=== PATIENT | female | born 1935 | race Caucasian/White ===

== ENCOUNTER 2020-03-18 16:10 | Inpatient (IN) | payer MEDICARE, SELFPAY ==
[2020-03-18] VITALS (13 sets, daily range): BP systolic 107–152; BP diastolic 46–84; PULSE 50–88; RESP 16–19; TEMP 36.6–37.2; O2SAT 96–99; BMI 29.8; BMI 24.6; BMI 23.5
--- NOTE | 2020-03-18 16:14 | EKG12_ITS ---
Test Reason : STROKE Blood Pressure : / mmHG Vent. Rate : 098 BPM Atrial Rate : 102 BPM P-R Int : 000 ms QRS Dur : 080 ms QT Int : 356 ms P-R-T Axes : 000 -03 143 degrees QTc Int : 454 ms Accelerated Junctional rhythm Left ventricular hypertrophy with repolarization abnormality Abnormal ECG Confirmed by LEEROY PAPPAS, KENYATTA ([id number]), story editor JOSE M RUTH ([id number]) on 03/21/2020 11:32:59 AM Referred By: ALDEN Confirmed By:KENYATTA UMAÑA MD
--- NOTE | 2020-03-18 16:14 | RAD_ITS ---
STUDY: X-RAY CHEST REASON FOR EXAM: Female, 84 years old. Stroke. TECHNIQUE: Single AP portable view of the chest. COMPARISON: None. FINDINGS: Telemetry wires overlie the chest. The lungs are clear and expanded. There is no demonstrated pleural abnormality. The heart appears enlarged. Normal mediastinum and cassy. Normal visualized pulmonary arteries. Atherosclerotic tortuosity of the thoracic aorta. Question uncoiling of the thoracic aorta. There is a double density in the left heart margin. Question prominent left ventricle versus retrocardiac hiatal hernia. Normal visualized thoracic spine. Normal visualized ribs, clavicles, and shoulders. There is no demonstrated abnormality of the visualized soft tissue structures of the upper abdomen. RAD/Chest 1 View IMPRESSION: 1. Cardiomegaly there is a retrocardiac hiatal hernia versus prominent left atrium. 2. Atherosclerotic tortuosity of the aorta with question uncoiling. Question ascending thoracic aortic aneurysm. Electronically Signed: Adryan Valadez DO at 17:14 EST Tel [phone], Service support ,
--- NOTE | 2020-03-18 16:14 | CT_ITS ---
STUDY: CTA HEAD AND NECK WITH CONTRAST REASON FOR EXAM: Female, 84 years old. STROKE RADIATION DOSAGE (If Supplied By Facility): CTDIvol = ( 19.30 ) mGy, DLP = ( 518.71 ) mGycm TECHNIQUE: CT angiography was performed with a multi-detector CT scanner. Data acquisition was obtained from the skull base through the vertex following intravenous administration of IV 100mL Isovue-300. MIP images were reconstructed from the axial data set. Post-processing of the angiographic images was performed, with multiplanar reformation and 3D reconstruction. Individualized dose optimization techniques were used for this CT. COMPARISON: Noncontrast head CT dated March 18, 2020 FINDINGS: Normal bilateral petrous carotid arteries. 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 There is calcified plaque formation of the left cavernous carotid artery, with a mild stenosis (less than 50%). Normal right A1 segments of the anterior cerebral artery. Normal left A1 segments of the anterior cerebral artery. Normal intact anterior communicating artery (ACOM). Normal bilateral A2 segments of the anterior cerebral arteries. Normal right M1 and M2 segments of the middle cerebral arteries, with a normal M1 bifurcation. Normal left M1 and M2 segments of the middle cerebral arteries, with a normal M1 bifurcation. Expected diminished vascularity in the area of previously infarcted parenchyma of the right temporal lobe. Normal right posterior communicating artery (PCOM). There is non-visualization of the left posterior communicating artery (PCOM). Normal bilateral vertebral arteries. Normal basilar artery with a normal basilar bifurcation. The visualized bilateral superior cerebellar (SCA) arteries are normal. Normal bilateral P1, P2 and visualized P3 segments of the posterior cerebral arteries. There is no demonstrated aneurysm of the [place]. There is no demonstrated abnormality of the visualized brain. AORTIC ARCH: There is atherosclerotic calcific plaque formation of the aortic arch and great vessels arising from the aortic arch, without a hemodynamically significant stenosis. There is a normal origin of the brachiocephalic, left common carotid, and left subclavian arteries. Normal origins of the brachiocephalic artery, however mild calcified plaque and focal stenosis of the origins of the left common carotid and left subclavian arteries noted. RIGHT CAROTID ARTERIES: There is moderate atherosclerotic plaque formation of the middle one third aspect common carotid artery, resulting in approximately 50% stenosis. Normal right common carotid bulb. Normal origin of the right internal carotid (ICA) artery without a hemodynamically significant stenosis. Normal visualized cervical portion of the right internal carotid artery. Normal origin of the right external carotid artery (ECA). LEFT CAROTID ARTERIES: Normal left common carotid artery (CCA). There is moderate atherosclerotic plaque formation with moderate narrowing of the carotid bulb. There is extensive atherosclerotic plaque formation of the origin of the left internal carotid artery with an estimated stenosis of greater than 70%. There is atherosclerotic tortuous elongation of the cervical portion of the left internal carotid artery. Normal origin of the left external carotid artery (ECA). VERTEBRAL ARTERIES: Normal bilateral vertebral arteries. CT/CTA Head AND Neck W/ Contrast IMPRESSION: 1. 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 2. There is calcified plaque formation of the left cavernous carotid artery, with a mild stenosis (less than 50%). 3. There is extensive atherosclerotic plaque formation of the origin of the left internal carotid artery with an estimated stenosis of greater than 70%. 4. Expected diminished vascularity in the area of previously infarcted parenchyma of the right temporal lobe. Electronically Signed: Osmel Iqbal MD at 17:06 EST , Service support ,
--- NOTE | 2020-03-18 16:14 | CT_ITS ---
We are attempting to reach an attending provider to discuss findings. An addendum with communication details will be sent when the communication is complete. STUDY: CT BRAIN WITHOUT CONTRAST REASON FOR EXAM: Female, 84 years old. Stroke RADIATION DOSAGE (If Supplied By Facility): CTDIvol = ( 44.99 ) mGy, DLP = ( 745.49 ) mGycm TECHNIQUE: Transaxial CT imaging of the brain was performed without administration of intravenous contrast material. Individualized dose optimization techniques were used for this CT. COMPARISON: None. FINDINGS: Normal soft tissue structures. Normal calvarium. There is moderate cerebral atrophy with widening of the extra-axial spaces and ventricular dilatation. There are moderate areas of decreased attenuation within the white matter tracts of the supratentorial brain, consistent with microvascular disease changes. Mild to moderate volume loss of the right temporal lobe is compatible with sequela from previous infarction. Normal basal ganglia and thalami. Normal brainstem. Normal cerebellum. There is no intracranial hemorrhage. There are no findings of an acute ischemic infarction. Bilateral maxillary antrectomy deformities noted. Mild to moderate paranasal sinusitis is present findings of chronic disease. CT/Brain/Head without Contrast IMPRESSION: 1. Chronic ischemic and involutional changes of the brain. 2. 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 Electronically Signed: Osmel Iqbal MD at 16:40 EST , Service support ,
[2020-03-18 16:21] LABS: Absolute Lymphocyte Count 1.27 X10^3/uL (0.83-4.51); Absolute Neutrophil Count 11.5 X10^3/uL (2.0-7.7); Basophil# 0.06 X10^3/uL; Basophil% 0.4 % (0-1); Eosinophil# 0.02 X10^3/uL; Eosinophils% 0.1 % (0-5); Hematocrit 35.2 % (37-47); Hemoglobin 10.9 g/dL (12.0-15.0); Lymphocyte # 1.27 X10^3/ul (4.0); Lymphocyte % 9.4 % (19-41); Mean Corpuscular Hgb 29.5 pg (27.0-32.0); Mean Corpuscular Volume 95.4 fL (81-99); Monocyte# 0.66 X10^3/uL; Monocyte% 4.9 % (0-10); NRBC Flagged by Analyzer 0 % (0-5); Neutrophil # 11.48 X10^3/uL (2.7-7.7); Neutrophil % 84.6 % (47-70); Platelet Count 371 K/mm3 (150-450); RBC Distribution Width CV 13.3 % (11.6-14.6); RBC Distribution Width SD 47.4 fl (35.1-43.9); Red Blood Count 3.69 M/mm3 (4.2-5.4); White Blood Count 13.6 K/mm3 (4.4-11.0)
[2020-03-18] MEDS: 0.9% Normal Saline 1,000 ML 100 ML IV (16:34)
[2020-03-18 16:38] LABS: Anion Gap 8 (5-15); BUN 38 mg/dL (7-18); BUN/Creat Ratio 31.9 RATIO (10-20); Calcium,Total 9.7 mg/dL (8.5-10.1); Chloride 108 mmol/L (98-107); Creatinine, Serum 1.19 mg/dL (0.55-1.02); EST Glomerular Filtration Rate 46 mL/min (>60); Est Glom Filt Rate - Afr Amer 56 mL/min (>60); Estimated Creatinine Clearance 33.53 ml/min; Glucose 194 mg/dL (74-106); Potassium 4.7 mmol/L (3.5-5.1); Sodium Level 138 mmol/L (136-145)
[2020-03-18 16:40] LABS: International Normalized Ratio 1.1; Prothrombin Time (Protime)PT. 13.5 SECONDS (11.7-14.9)
[2020-03-18 16:41] LABS: Partial Thromboplast Time 22.3 Seconds (24.1-36.2)
--- NOTE | 2020-03-18 16:46 | CM.ED ---
Social Work Responding to stroke alert. Patient granddaughter, Franchesca Qureshi present. Franchesca reports that patient has history of Dementia. Franchesca reports that patient moved in with Franchesca a week ago. Patient originally from [place] and was not able to care for self per [facility] account. Franchesca and Rajan Qureshi are patient HCPOA. Franchesca able to provide this sr. social media & mobile manager with HCPOA documents. This sr. social media & mobile manager placing copy of HCPOA documents on patient ED chart. Support provided. Social Work to continue to follow as needed. Rogerio VIZCAINO, CINDY
--- NOTE | 2020-03-18 17:39 | ED.DCSUM_ITS ---
History of Present Illness Chief Complaint: Neuro S/Sx Informant: Patient, Family Limited: Dementia Quality and Location: Right Facial Droop, Right Arm Weakness, Right Leg Weakness Narrative: Patient is an 84-year-old female with history of dementia and hypertension presenting with sudden onset of right-sided weakness, facial droop and incontinence. She was with her daughter at the time when she try to get her out of the car and noticed the symptoms. Symptoms started at 1500. Patient had an episode of confused speech yesterday and was taken to pulmonary emergency room. At that time he thought she was either dehydrated versus having a TIA. She was discharged home after negative head CT. Patient does have a history of head injury with a bleed about 1 year ago. She is on a daily 81 mg aspirin. Patient recently moved here from [place] so the family to take care of her. No recent falls. Patient currently denies any complaint at this time but is a poor historian secondary to her dementia. Her [id number] is at the bedside providing the history. Past Medical History - Allergies and Home Meds Allergies/Adverse Reactions: Allergies No Known Allergies Allergy (Verified 03/18/20 16:17) Past Medical History: - - Dementia, hypertension Surgical History: noncontributory Lives: With Family Smoking Status: Former smoker - Family History Maternal Family History: Reports: No pertinent history Paternal Family History: Reports: No pertinent history Review of Systems General: Denies: Chills, Fever, Sweats Eyes: Denies: Visual changes - bilaterally, Diplopia ENT: Denies: Rhinorrhea, Sore throat Cardiovascular: Denies: Chest pain, Palpitations Respiratory: Denies: Dyspnea, Cough, Dyspnea on exertion Gastrointestinal: Denies: Abdominal pain, Nausea, Vomiting, Diarrhea, Melena, Hematochezia Genitourinary: Denies: Dysuria, Hematuria, Frequency Musculoskeletal: Denies: Back pain, Extremity Pain Skin: Denies: Rash, Wounds Neurological: Reports: Weakness - Right-sided. Denies: Headache, Numbness STROKE Vital Signs/Narrative: Vital Signs Temp Pulse Resp BP Pulse Ox 03/18/20 17:14 56 L 19 H 126/51 H 96 03/18/20 17:11 56 L 19 H 126/51 H 97 03/18/20 16:44 62 18 136/70 H 99 03/18/20 16:31 98 03/18/20 16:28 97.8 F 03/18/20 16:18 88 18 152/84 H 96 Inital Vital Signs reviewed: Yes - NIHSS Initial 1a Level of Consciousness: 0 1b LOC Questions (Score 2 if aphasic/stupor): 1 1c LOC Commands (Only score 1st attempt): 0 2 Best Gaze (If aphasic, use reflexive mvmts.): 0 3 Visual: 0 4 Facial Palsy: 0 5 Motor Arm Right (UN = amputation/fusion): 0 5 Motor Arm Left: 0 6 Motor Leg Right: 2 6 Motor Leg Left: 1 7 Limb ataxia (Only + if out of proportion): 0 8 Sensory (Aphasia/stupor=0 or 1, coma=2): 0 9 Best Language: 0 10 Dysarthria (mute, coma=2, intubated=UN): 0 11 Extinction and Inattention (only scored if +): 0 Total Score: 4 General: Well nourished, Well developed Head: Normocephalic, Atraumatic Eyes: Perrl, EOMI ENT: Moist mucous membranes, No rhinorrhea Neck: Supple, Nontender Cardiovascular: Regular rate, Regular rhythm, No murmurs Respiratory: No distress, CTA bilaterally, Chest nontender Abdomen: Soft, Nontender, Nondistended, Normal bowel sounds Back: Nontender, Normal Inspection Extremities: Nontender, No edema Skin: Normal color, No rash Neurological: Alert, Cranial nerves II-XII grossly intact, Normal Sensation, Disoriented. Negative for: Left side facial droop, Right side facial droop Psychological: Normal affect Diagnostic/Tx/Re-eval Clinical Impression(s) from Imaging Studies Brain CT 03/18/20 16:14 IMPRESSION: 1. Chronic ischemic and involutional changes of the brain. 2. 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 Electronically Signed: Osmel Iqbal MD at 16:40 EST , Service support , ADDENDUM: 03/18/20 9330 IMPRESSION: 1. Chronic ischemic and involutional changes of the brain. 2. 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 N.B. : The above information has been verbally conveyed by Osmel Iqbal MD to Ellyn Cheung MD, on 03/18/2020 17:03:07 (ET). Electronically Signed: Osmel Iqbal MD at 16:40 EST , Service support , Chest X-Ray 03/18/20 16:14 IMPRESSION: 1. Cardiomegaly there is a retrocardiac hiatal hernia versus prominent left atrium. 2. Atherosclerotic tortuosity of the aorta with question uncoiling. Question ascending thoracic aortic aneurysm. Electronically Signed: Adryan Valadez DO at 17:14 EST Tel [phone], Service support , Head/Neck CTA 03/18/20 16:14 IMPRESSION: 1. 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 2. There is calcified plaque formation of the left cavernous carotid artery, with a mild stenosis (less than 50%). 3. There is extensive atherosclerotic plaque formation of the origin of the left internal carotid artery with an estimated stenosis of greater than 70%. 4. Expected diminished vascularity in the area of previously infarcted parenchyma of the right temporal lobe. Electronically Signed: Osmel Iqbal MD at 17:06 EST , Service support , Laboratory Data 03/18/20 03/18/20 03/18/20 16:15 16:15 16:15 WBC 13.6 H RBC 3.69 L Hgb 10.9 L Hct 35.2 L MCV 95.4 MCH 29.5 MCHC 31.0 L RDW Std Deviation 47.4 H RDW Coeff of Andrew 13.3 Plt Count 371 MPV 11.0 Immature Gran % (Auto) 0.600 Neut % (Auto) 84.6 H Lymph % (Auto) 9.4 L [place] % (Auto) 4.9 Eos % (Auto) 0.1 Baso % (Auto) 0.4 Absolute Neuts (auto) 11.5 H Absolute Lymphs (auto) 1.27 Nucleated RBC % 0 PT 13.5 INR 1.1 APTT 22.3 L Sodium 138 Potassium 4.7 Chloride 108 H Carbon Dioxide 22.0 Anion Gap 8 BUN 38 H Creatinine 1.19 H Estim Creat Clear Calc 33.53 Est GFR (MDRD) Af Amer 56 L Est GFR (MDRD) Non-Af 46 L BUN/Creatinine Ratio 31.9 H Glucose 194 H Hemoglobin A1c Calcium 9.7 Troponin I < 0.015 Urine Color Urine Clarity Urine pH Ur Specific [place] Urine Protein Urine Glucose (UA) Urine Ketones Urine Occult Blood Urine Nitrite Urine Bilirubin Urine Urobilinogen Ur Leukocyte Esterase Urine RBC Urine WBC Ur Squamous Epith Cells Urine Bacteria Urine Mucus 03/18/20 03/18/20 16:15 17:26 WBC RBC Hgb Hct MCV MCH MCHC RDW Std Deviation RDW Coeff of Andrew Plt Count MPV Immature Gran % (Auto) Neut % (Auto) Lymph % (Auto) [place] % (Auto) Eos % (Auto) Baso % (Auto) Absolute Neuts (auto) Absolute Lymphs (auto) Nucleated RBC % PT INR APTT Sodium Potassium Chloride Carbon Dioxide Anion Gap BUN Creatinine Estim Creat Clear Calc Est GFR (MDRD) Af Amer Est GFR (MDRD) Non-Af BUN/Creatinine Ratio Glucose Hemoglobin A1c 5.6 Calcium Troponin I Urine Color Yellow Urine Clarity Clear Urine pH 6.0 Ur Specific [place] 1.010 Urine Protein Negative Urine Glucose (UA) Normal Urine Ketones Negative Urine Occult Blood 10 H Urine Nitrite Negative Urine Bilirubin Negative Urine Urobilinogen Normal Ur Leukocyte Esterase Negative Urine RBC 0-5 SEEN Urine WBC 0 SEEN Ur Squamous Epith Cells 0 SEEN Urine Bacteria 0 SEEN Urine Mucus 0 SEEN Chest X-Ray - ED: 1 View, Read by ED Physician, Read by Radiologist, No Acute Disease - Rhythm Strip Rhythm Strip: Sinus Rhythm Rate: 98 Ectopy: None - EKG Initial EKG Interpretation: Junctional - Junctional rhythm at a rate of 98 Normal axis LVH QRS 80 QTc 454 T wave changes in V3 No prior EKG available for comparison, - - Medical Decision Making Stroke Team Activated: Yes Reviewed Inclusion/Exclusion criteria: Yes - Not a candidate due to low NIH and improving symptoms. Was Patient considered for Endovascular Intervention?: No - No LVO seen IV Alteplase (t-PA) Administered: No Patient is evaluated for an episode of sudden onset of right eye weakness and right-sided facial droop. Patient episode yesterday of transient garbled speech . She was seen in the ER at [facility] yesterday and had a head CT as well as lab work. At that time he was thought to the hospital he had a TIA versus dehydration was discharged home. On arrival patient's NIH is 4. She actually seems to have improvement of her symptoms as her daughter states that initially she was completely limp on her right side and had significant right- sided facial droop. Patient is evaluated by teleneurology and given her improving NIH she is not given TPA. I think this is appropriate. Patient will require admission for further stroke evaluation and MRI. [id number] is agreeable with this plan. [id number] does state that patient is a DNR CCA.Patient does have a very mild leukocytosis of 13.6 but no source of infection. Her creatinine is 1.19 by do not have a baseline to compare to. Hyperglycemia of 194 but a normal anion gap. No other acute abnormalities are noted at this time. ED Disposition - Plan for ED Patient: Disposition: Acute Care Hospital [facility] Diagnosis: Weakness of right side of body, Dementia, Renal insufficiency
[2020-03-18 17:40] LABS: Bacteria 0 SEEN /hpf (None Seen); Mucous, Urine 0 SEEN /hpf (<or=2+); Squamous Epithelial Cells - UA 0 SEEN /hpf (5-10); White Blood Cells 0 SEEN /hpf (0-5)
[2020-03-18 17:44] LABS: Color, Urine Yellow (Yellow); Glucose, Dipstick Normal (Normal); Ketone-Dipstick Negative (Negative); Leukocyte Esterase-Dipstick Negative /ul (Negative); Nitrite-Dipstick Negative (Negative); Occult Blood-Urine 10 /ul (Negative); Protein-Dipstick Negative (Negative); Urine Bilirubin Dipstick Negative (Negative); Urine Clarity Clear (Clear); Urine Urobilinogen Normal (Normal)
[2020-03-18] MEDS: Aspirin 81 MG TAB.CHEW 162 MG PO (17:59)
--- NOTE | 2020-03-18 18:02 | ED.RN ---
Attempted dysphagia screening twice, began coughing and choking on spoonfuls of water both times. PO aspirin given rectally per Dr. Villar due to failing dysphagia.
[2020-03-18 18:04] LABS: Red Blood Cells-Urine 0-5 SEEN /hpf (0-5)
--- NOTE | 2020-03-18 18:15 | ED.RN ---
TC made to POA and granddaughter Tabby Qureshi at [phone] to update on Willa's status.
--- NOTE | 2020-03-18 18:35 | HP.PCM_ITS ---
Problem List (1) Renal insufficiency Status: Acute (2) Weakness of right side of body Status: Acute (3) Hyperglycemia Status: Acute (4) Depression Status: Chronic (5) Dementia Status: Chronic (6) Hypertension Status: Chronic History of Present Illness Date of Admission: 03/18/20 Chief Complaint: Right facial droop, right-sided body weakness. The patient is a 84 year old F with past medical history as mentioned above presented to the emergency room because of sudden onset of right facial droop and right side body weakness. The patient has dementia and she is a poor informant and was not able to provide consistent history. I spoke with the patient's granddaughter who is the power of offshoring manager over the phone and I collected some information from the ER physician note. Apparently, patient was with her granddaughter this afternoon when she started having sudden onset of right facial droop and her right upper and lower extremity were completely flaccid and was not able to stand. Family reports that patient had an episode of slurred speech yesterday and she was taking to [facility] ER where she had negative CT scan brain and she was discharged home. The patient herself denied any pain. She denied any focal weakness. She had a history of hypertension and she has been on 4 different antihypertensive medications and currently, blood pressure is in the 100 systolic. She will history of dementia and she has been on donepezil. She will history of depression and she has been on Celexa and Zyban. In the emergency department, she was bradycardic, blood pressure was stable, was afebrile and pulse ox was 96% on room air. Routine blood work was remarkable for mild leukocytosis, hemoglobin of 10.9 g/dL, BUN of 38, creatinine is 1.19. Blood glucose was 194. EKG revealed questionable junctional rhythm, regular, no acute hemic changes. Troponin was negative. UA was unremarkable. Chest x-ray showed mild cardiomegaly, no acute findings. CT scan brain showed no acute infarct or hemorrhage. CTA of the head and neck showed right cavernous carotid artery stenosis of 50 to 75%, less than 50% stenosis of the left cavernous carotid artery, more than 70% extensive plaque formation at the origin of the left internal carotid artery. [facility] [place] and patient was not a candidate for TPA because of time. She is being admitted for TIA versus acute stroke for evaluation and treatment. Past Medical History Past Medical History (Chronic Problems): Chronic Problems Depression (Chronic) Dementia (Chronic) Hypertension (Chronic) Allergies No Known Allergies Allergy (Verified 03/18/20 16:17) Home Medications: Ambulatory Orders Medication Instructions Recorded Acetaminophen [Tylenol Arthritis] 650 mg PO Q8H PRN PRN 03/18/20 Amlodipine [Norvasc] 10 mg PO DAILY 03/18/20 Aspirin 81 mg PO DAILY 03/18/20 Bupropion HCl [Zyban] 150 mg PO DAILY 03/18/20 Cholecalciferol (Vitamin D3) 50 mcg PO DAILY 03/18/20 [Vitamin D3] Citalopram [Celexa] 40 mg PO DAILY 03/18/20 Cyanocobalamin (Vitamin B-12) 2,500 mcg PO DAILY 03/18/20 [Vitamin B12] Donepezil HCl 5 mg PO DAILY 03/18/20 Ferrous Sulfate [Ferosul] 325 mg PO DAILY 03/18/20 Loratadine 10 mg PO DAILY 03/18/20 Losartan Potassium [Cozaar] 50 mg PO BID 03/18/20 Magnesium Chloride [Slow-Mag] 71.5 mg PO DAILY 03/18/20 Meloxicam 15 mg PO QHS 03/18/20 Metoprolol Tartrate [Lopressor 25 mg PO BID 03/18/20 (Beta Andrea)] Triamterene 75MG/Hctz 50MG 1 tab PO QODAY 03/18/20 [Maxzide] Surgical History: noncontributory Psychiatric History: Depression CAT AND DOG BATHER History: No pertinent CAT AND DOG BATHER history Lives: With Family Smoking Status: Former smoker Alcohol: None Drugs: None - *Family History Maternal History Items: No pertinent history Paternal History Items: No pertinent history Review of Systems Constitutional: Denies: Anorexia, Chills, Fever, Weakness Eyes: Denies: Blurred vision, Drainage, Eyelid Inflammation, Redness HEENT: Denies: Difficulty Hearing, Ear Pain, Eye Pain, Nasal Congestion, Sore Throat Cardiovascular: Denies: Chest Pain, Chest Pressure, Palpitations, Syncope Respiratory: Denies: Cough, Shortness of Breath, Sputum production, Wheezing Gastrointestinal: Denies: Abdominal Pain, Diarrhea, Nausea, Vomiting Genitourinary: Denies: Dysuria, Frequency, Hematuria Musculoskeletal: Denies: Arm Pain, Back Pain, Foot Pain Skin: Denies: Dryness, Rash Neurological: Reports: Confusion, Focal weakness. Denies: Balance problems, Blurred vision, Double vision, Change in Speech, Slurred speech, Headaches Psychiatric: Reports: Depression. Denies: Anxiety Endocrine: Denies: Change in Body Habitus, Polydipsia, Polyuria VTE Information - Inpt Only VTE Present on Admission: No VTE Mechan Device Prophylaxis: None VTE Pharm Prophylaxis ordered?: Yes Patient Problems: Active and Suspected Problems Renal insufficiency (Acute) Weakness of right side of body (Acute) Hyperglycemia (Acute) - Physical Exam Vitals/I&O's: Vital Signs Temp Pulse Resp BP Pulse Ox 97.8 F 54 L 19 H 107/54 L 96 03/18/20 18:05 03/18/20 18:05 03/18/20 18:05 03/18/20 18:05 03/18/20 18:05 Oxygen Delivery Method Room Air Weight: 152 lb 12.485 oz Body Mass Index (BMI) 24.6 Finger Stick Blood Glucose 212 General: Alert, Cooperative, No apparent distress, Disoriented HEENT: Atraumatic, PERRLA, EOMI, Normocephalic Oral: Moist Mucosa, No Gingival or Mucosal Lesions/ Ulcerations Neck: Supple, No JVD, Negative Carotid Bruits, Trachea Midline, Thyroid Normal Size and Texture Lungs: Clear to auscultation, Normal air movement, No rhonchi, No wheeze, No rales, Diminished Cardiovascular: Regular rate, Regular Rhythm, Normal S1, Normal S2, PMI Normal Abdomen: Bowel Sounds Present, Soft, Non Tender, Non-Distended, No Hepato- splenomegaly Extremities: No clubbing, No cyanosis, No edema Skin: No rashes, No breakdown Musculoskeletal: No Tenderness to Palpation of Joints or Extremities Lymphatic: No Cervical, Supraclavicular, or Inguinal Adenopathy Neurological: Cranial nerves II-XII grossly intact, Motor Exam 5/5 strength throughout, - - No arm or leg drift. Psych/Mental Status: Appropriate, Flat Affect Laboratory Results 03/18/20 16:15: WBC 13.6 H, RBC 3.69 L, Hgb 10.9 L, Hct 35.2 L, MCV 95.4, MCH 29.5, MCHC 31.0 L, RDW Std Deviation 47.4 H, RDW Coeff of Andrew 13.3, Plt Count 371, MPV 11.0, Immature Gran % (Auto) 0.600, Neut % (Auto) 84.6 H, Lymph % (Auto) 9.4 L, [place] % (Auto) 4.9, Eos % (Auto) 0.1, Baso % (Auto) 0.4, Absolute Neuts (auto) 11.5 H, Absolute Lymphs (auto) 1.27, Nucleated RBC % 0 03/18/20 16:15: PT 13.5, INR 1.1, APTT 22.3 L 03/18/20 16:15: Sodium 138, Potassium 4.7, Chloride 108 H, Carbon Dioxide 22.0, Anion Gap 8, BUN 38 H, Creatinine 1.19 H, Estim Creat Clear Calc 33.53, Est GFR (MDRD) Af Amer 56 L, Est GFR (MDRD) Non-Af 46 L, BUN/Creatinine Ratio 31.9 H, Glucose 194 H, Calcium 9.7, Troponin I < 0.015 03/18/20 17:26: Urine Color Yellow, Urine Clarity Clear, Urine pH 6.0, Ur Specific Bailey 1.010, Urine Protein Negative, Urine Glucose (UA) Normal, Urine Ketones Negative, Urine Occult Blood 10 H, Urine Nitrite Negative, Urine Bilirubin Negative, Urine Urobilinogen Normal, Ur Leukocyte Esterase Negative, Urine RBC 0-5 SEEN, Urine WBC 0 SEEN, Ur Squamous Epith Cells 0 SEEN, Urine Bacteria 0 SEEN, Urine Mucus 0 SEEN Clinical Impression(s) from Imaging Studies Brain CT 03/18/20 16:14 IMPRESSION: 1. Chronic ischemic and involutional changes of the brain. 2. 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 Electronically Signed: Osmel Iqbal MD at 16:40 EST , Service support , ADDENDUM: 03/18/20 1710 IMPRESSION: 1. Chronic ischemic and involutional changes of the brain. 2. 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 N.B. : The above information has been verbally conveyed by Osmel Iqbal MD to Ellyn Cheung MD, on 03/18/2020 17:03:07 (ET). Electronically Signed: Osmel Iqbal MD at 16:40 EST , Service support , Chest X-Ray 03/18/20 16:14 IMPRESSION: 1. Cardiomegaly there is a retrocardiac hiatal hernia versus prominent left atrium. 2. Atherosclerotic tortuosity of the aorta with question uncoiling. Question ascending thoracic aortic aneurysm. Electronically Signed: Adryan Valadez DO at 17:14 EST Tel [phone], Service support , Head/Neck CTA 03/18/20 16:14 IMPRESSION: 1. 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 2. There is calcified plaque formation of the left cavernous carotid artery, with a mild stenosis (less than 50%). 3. There is extensive atherosclerotic plaque formation of the origin of the left internal carotid artery with an estimated stenosis of greater than 70%. 4. Expected diminished vascularity in the area of previously infarcted parenchyma of the right temporal lobe. Electronically Signed: Osmel Iqbal MD at 17:06 EST , Service support , Current Medications Sodium Chloride () 1,000 mls @ 100 mls/hr IV .Q10H ONE Stop: 03/19/20 02:12 Last Admin: 03/18/20 16:34 Dose: 100 mls/hr Documented by: Iopamidol (Contrast Allergy Safety Check) 0 ml IV X1 BRYANT Labetalol HCl (Labetalol (Prefilled) 20 Mg/4 Ml) 20 mg IV X1 PRN PRN Reason: BLOOD PRESSURE Assessment/Plan All Active Problems Renal insufficiency (Acute) Weakness of right side of body (Acute) Hyperglycemia (Acute) This is an 84 years old female patient was brought to the emergency department because of sudden onset right facial droop, right body weakness and she is being admitted for evaluation and treatment. #1 right facial droop/right-sided weakness/TIA: Versus acute stroke. CT brain showed no acute infarct or hemorrhage. CTA head and neck reviewed as above. Her symptoms resolved. Patient was seen by [facility] teleneurology and recommended no TPA. Currently, she has no focal deficit. Plan: Admit to PCU, cardiac monitoring, NIH stroke scale, baby aspirin, Lipitor, lipid profile, MRI brain, 2D echocardiogram, gentle IV fluids for hydration, bilateral carotid Doppler, Tylenol as needed, Zofran as needed, repeat CBC and BMP tomorrow morning, PT OT evaluation and treatment. #2 hyperglycemia: Without history of diabetes. Plan: Accu-Cheks every 6 hours, insulin sliding scale, will check hemoglobin A1c. #3 renal insufficiency: Unknown if this is acute or chronic. Admission BUN is 38, creatinine is 1.19. Plan for gentle IV fluids for hydration, input output chart, repeat BMP tomorrow morning. #4 anemia: It is probably chronic, patient has been on iron supplement. Currently, no active bleeding. It is normocytic anemia. Plan to continue iron supplement, monitor. #5 hypertension: Blood pressure was stable in the ED. Systolic was around 105. Because of suspected acute stroke, plan to hold Norvasc, losartan, metoprolol and HCTZ/triamterene. #6 dementia: Supportive treatment, continue on donepezil. #7 depression: Continue Zyban and Celexa. #9 CODE STATUS: DNR CCA, no intubation. Discussed with the patient's granddaughter Franchesca Qureshi who is the power of offshoring manager. #10 DVT prophylaxis: Subcu Lovenox. This note was generated with [employer] dictation software. It may contain incorrect words, spelling, and punctuation that were not noted in checking the note before signing. Inpatient E&M: 45189 Init Hosp L3
--- NOTE | 2020-03-18 21:28 | CDU_ITS ---
Reason For Study: TIA Rt. Velocities/BP Lt. Velocities/BP Prox CCA 69.5/16 cm/sec. Prox CCA 40.4/9 cm/sec. Mid CCA 116.5/29.1 cm/sec. Mid CCA 45.6/9.9 cm/sec. Dist CCA 66.9/14.7 cm/sec. Dist CCA 38.6/10.7 cm/sec. Prox ICA 87.8/20 cm/sec. Prox ICA 75.4/13.3 cm/sec. Mid ICA 83.9/18.6 cm/sec. Mid ICA 543.5/77.5 cm/sec. Dist ICA 70.8/13.4 cm/sec. Dist ICA 64/21.2 cm/sec. Rt. ICA/CCA = 1.26. Lt. ICA/CCA = 13.5. Prox ECA 69.2/4.8 cm/sec. Prox ECA 339.9/18 cm/sec. Rt. Vert. 30.5/10.7 cm/sec. Lt. Vert. 67.3/13.5 cm/sec. Right Extracranial There is heterogeneous, irregular atherosclerotic plaque noted in the right common carotid artery. There is homogeneous, smooth atherosclerotic plaque noted in the right internal carotid artery. There is intimal thickening but no significant atherosclerotic plaque noted in the right external carotid artery. Antegrade flow is noted in the right vertebral artery. Left Extracranial There is heterogeneous, irregular atherosclerotic plaque noted in the left common carotid artery. There is heterogeneous, irregular atherosclerotic plaque noted in the left internal carotid artery. There is heterogeneous, irregular atherosclerotic plaque noted in the left external carotid artery. Antegrade flow is noted in the left vertebral artery. Procedure Carotid Duplex 99826. This is a Carotid Duplex examination using B-mode, color flow and specral Doppler. Exam performed portable in patient room. Interpretation Summary Smooth plaque at the proximal right internal carotid artery with less than 50% stenosis. Less than 50% stenosis right external carotid artery Calcific irregular plaque at the proximal left internal carotid artery with shadowing. Greater than 70% stenosis left mid internal carotid artery Greater than 50% stenosis left external carotid artery Patent and antegrade vertebrals bilaterally Ordering Physician: Zari Marcial Performed By: Radha Yates RVT
--- NOTE | 2020-03-18 21:28 | ECHOD_ITS ---
Reason For Study: TIA/CVA Procedure This was a 2D Doppler, Color Flow transthoracic echocardiogram. The study was technically difficult. Patient would not hold still, and was very confused. Contrast injection was performed. Exam performed portable in patient room. Left Ventricle Normal LV size. Left ventricular systolic function is normal. The estimated ejection fraction is 65 %. There is evidence of diastolic dysfunction. No regional wall motion abnormalities noted. Right Ventricle Normal RV size. Normal systolic function. Atria The left atrium is moderately enlarged. The right atrium is mildly enlarged. No doppler evidence for ASD. Bubble contrast study negative for right to left interatrial shunt. Mitral Valve There is mild mitral annular calcification. Anterior leaflet diffuse mitral valve thickening. Mild (1+) eccentric mitral valve insufficiency. Tricuspid Valve Normal tricuspid valve. Mild tricuspid valve insufficiency. Right ventricular systolic pressure estimated to be 22 mmHg. Aortic Valve The aortic valve is not well visualized. Pulmonic Valve The pulmonic valve is not well visualized. Great Vessels The aortic root is not well visualized. Pericardium/Pleural Trivial pericardial effusion. There are no echocardiographic indications of cardiac tamponade. Medication Performed a rapid injection of agitated mix of 9 cc saline and 1cc air to assess for atrial septal defect. MMode/2D Measurements & Calculations LVIDd: 3.4 cm IVSd: 1.3 cm LA dimension: 2.5 cm LVIDs: 2.7 cm LVPWd: 0.99 cm FS: 22.6 % LAV(MOD-bp): 66.9 ml LA A4 area: 23.3 cm2 RA A4 area: 19.5 cm2 LAV(MOD-bp) Indexed: 38.3 ml/m2 LAV(MOD-sp2): 60.7 ml LAV(MOD-sp4): 75.0 ml Time Measurements MV dec time: 0.23 sec Doppler Measurements & Calculations MV E max brett: 93.3 cm/sec Lat Peak E' Brett: 5.4 cm/sec Med Peak E' Brett: 5.3 cm/sec MV A max brett: 101.4 cm/sec E/E' lat: 17.2 E/E' med: 17.6 MV E/A: 0.92 MV V2 max: 115.6 cm/sec MV P1/2t max brett: 92.5 cm/sec Ao V2 max: 184.9 cm/sec MV max P.3 mmHg MV P1/2t: 81.2 msec Ao max P.7 mmHg MV V2 mean: 66.2 cm/sec MV dec slope: 333.5 cm/sec2 Ao V2 mean: 116.2 cm/sec MV mean P.0 mmHg Ao mean P.4 mmHg MV V2 VTI: 30.6 cm MVA(P1/2t): 2.7 cm2 Ao V2 VTI: 40.8 cm LV V1 max: 161.2 cm/sec PA V2 max: 104.0 cm/sec TR max brett: 215.1 cm/sec LV V1 max P.4 mmHg TR max P.5 mmHg LV V1 mean P.8 mmHg LV V1 mean: 101.8 cm/sec LV V1 VTI: 34.7 cm Interpretation Summary The study was technically difficult. Contrast injection was performed. Left ventricular systolic function is normal. The estimated ejection fraction is 65 %. The left atrium is moderately enlarged. The right atrium is mildly enlarged. There is mild mitral annular calcification. Anterior leaflet diffuse mitral valve thickening. Mild (1+) eccentric mitral valve insufficiency. Mild tricuspid valve insufficiency. Right ventricular systolic pressure estimated to be 22 mmHg. There is evidence of diastolic dysfunction. Bubble contrast study negative for right to left interatrial shunt. Ordering Physician: Zari Marcial Performed By: Richard Silverman RCS
[2020-03-18 22:13] LABS: Hemoglobin A1c 5.6 % (3.8-5.6)
[2020-03-18] MEDS: 0.9% Normal Saline 1,000 ML 75 ML IV (22:16)
[2020-03-18 22:31] LABS: Bedside Glucose 107 mg/dL (70-110)
[2020-03-19] VITALS (17 sets, daily range): BP systolic 121–144; BP diastolic 43–68; PULSE 46–122; RESP 14–18; TEMP 36.6–37.1; O2SAT 94–100; BMI 23.5
[2020-03-19 05:16] LABS: Absolute Lymphocyte Count 1.66 X10^3/uL (0.83-4.51); Absolute Neutrophil Count 6.2 X10^3/uL (2.0-7.7); Basophil# 0.06 X10^3/uL; Basophil% 0.7 % (0-1); Eosinophils% 2.2 % (0-5); Hemoglobin 9.6 g/dL (12.0-15.0); Lymphocyte # 1.66 X10^3/ul (4.0); Lymphocyte % 18.3 % (19-41); Mean Corp Hgb Conc 29.1 g/dL (32-36); Mean Corpuscular Hgb 29.4 pg (27.0-32.0); Mean Corpuscular Volume 101.2 fL (81-99); Monocyte# 0.92 X10^3/uL; Monocyte% 10.2 % (0-10); NRBC Flagged by Analyzer 0 % (0-5); Neutrophil # 6.17 X10^3/uL (2.7-7.7); Neutrophil % 68.2 % (47-70); Platelet Count 308 K/mm3 (150-450); RBC Distribution Width CV 13.3 % (11.6-14.6); RBC Distribution Width SD 49.5 fl (35.1-43.9); Red Blood Count 3.26 M/mm3 (4.2-5.4); White Blood Count 9.1 K/mm3 (4.4-11.0)
[2020-03-19 05:38] LABS: Anion Gap 7 (5-15); BUN 32 mg/dL (7-18); BUN/Creat Ratio 31.7 RATIO (10-20); Calcium,Total 8.7 mg/dL (8.5-10.1); Chloride 112 mmol/L (98-107); Cholesterol 160 mg/dL (200); Creatinine, Serum 1.01 mg/dL (0.55-1.02); EST Glomerular Filtration Rate 56 mL/min (>60); Est Glom Filt Rate - Afr Amer 67 mL/min (>60); Estimated Creatinine Clearance 39.51 ml/min; Glucose 78 mg/dL (74-106); High Density Lipoprotein 40 mg/dL; Potassium 4.2 mmol/L (3.5-5.1); Sodium Level 141 mmol/L (136-145); Triglycerides 88 mg/dL; Very Low Density Lipoprotein 18 mg/dL (5-40)
[2020-03-19 06:11] LABS: Bedside Glucose 94 mg/dL (70-110)
[2020-03-19] MEDS: 0.9% Saline Lock 10 ML Syringe IV ×2 (08:32→22:55)
[2020-03-19] MEDS: LORazepam 2 MG/ML Syringe 1 MG IV (08:32)
--- NOTE | 2020-03-19 09:13 | NURSING ---
Multiple times throughout scan pt is redirected by MRI staff. Stress ball given to pt multiple times during scan. Pt often reaching right hand over head coil, feels abdomen, and feels inside of MRI with right arm. Pt has pleasant demeanor throughout MRI.
--- NOTE | 2020-03-19 09:15 | MRI_ITS ---
We are attempting to reach an attending provider to discuss findings. An addendum with communication details will be sent when the communication is complete. STUDY: MRI BRAIN WITHOUT CONTRAST REASON FOR EXAM: Female, 84 years old. cva, confusion, RIGHT weakness TECHNIQUE: Standardized multiplanar fat and water weighted pulse sequences were obtained. COMPARISON: CT 03/18/2020 FINDINGS: There is moderate cerebral atrophy with widening of the extra-axial spaces and ventricular dilatation. There are multiple white matter hyperintensities, distributed throughout the deep white matter tracts of the cerebral hemispheres, consistent with moderate chronic white matter ischemic changes. There are punctate hyperintensities appear ventricular white matter of the left parietal lobe which demonstrate restricted diffusion consistent with acute/subacute white matter infarct. Normal T2* images of the brain without demonstrated susceptibility artifact. There is no demonstrated hemosiderin stain. Encephalomalacia and gliosis within the posterior right temporal and parietal lobe consistent with a prior infarct. Normal bilateral basal ganglia. Normal thalami. There is no extra-axial fluid accumulation. Normal flow voids within the major intracranial circulation suggesting patency by spin echo criteria. Normal sella turcica, pituitary gland, infundibular stalk, optic chiasm and hypothalamus. Normal tectal plate and pineal gland. Normal midbrain, yuli and medulla. Normal cerebellum. Normal basal cisterns. Normal bilateral temporal bones. Normal bilateral internal auditory canals. There are bilateral ocular lens implants with otherwise normal intraorbital contents. Normal visualized paranasal sinuses. Normal calvarium and skull base. Normal visualized soft tissue structures. Normal visualized upper cervical spine. MRI/Brain without Contrast IMPRESSION: Involutional changes of the brain, as described above. Acute/subacute the punctate white matter infarcts in the periventricular white matter of the left parietal lobe. Electronically Signed: Lvey Mendez MD at 10:01 EST Tel , Service support ,
--- NOTE | 2020-03-19 10:09 | TELEMED_ITS ---
[facility] has confirmed receipt of a request for visit. This document confirms receipt of the order initiating the consult. To find the results of the consultation, please view the patient's reports for the scanned Telemed Consult.
[2020-03-19] MEDS: Enoxaparin 30 MG/0.3 ML Syringe SC (11:28)
[2020-03-19] MEDS: Ferrous Sulfate 325 MG Tablet PO (11:28)
[2020-03-19] MEDS: Aspirin 81 MG TAB.CHEW PO (11:29)
[2020-03-19] MEDS: Loratadine 10 MG Tablet PO (11:29)
[2020-03-19] MEDS: Donepezil HCl 5 MG Tablet PO (11:29)
[2020-03-19] MEDS: Citalopram 40 MG TABLET PO (11:29)
--- NOTE | 2020-03-19 12:07 | PCM.PN.HOSP ---
Patient Problems: Active and Suspected Problems Renal insufficiency (Acute) Weakness of right side of body (Acute) Hyperglycemia (Acute) Subjective: Patient seen and examined. She was quite confused. And not really able to answer questions. She was admitted with right facial droop and right-sided weakness and is been managed for stroke. She had also had some slurring of her speech on the day of admission. She was not a candidate for tPA. Unable to do review of systems due to her confusion. She has remained hemodynamically stable. Vitals/I&O's: Vital Signs Temp Pulse Resp BP Pulse Ox 97.8 F 62 16 144/55 H 96 03/19/20 07:45 03/19/20 09:12 03/19/20 09:12 03/19/20 09:12 03/19/20 09:12 Oxygen Delivery Method Room Air Weight: 145 lb 8.081 oz Body Mass Index (BMI) 23.5 Finger Stick Blood Glucose 212 Intake and Output for Last 24 Hours 03/17/20 03/18/20 03/19/20 23:59 23:59 23:59 Intake Total 570 / 570 0 / 0 Balance 570 / 570 0 / 0 General: Alert, Confused, Disoriented HEENT: Atraumatic, PERRLA, EOMI, Normocephalic Oral: Dry Mucosa Neck: Supple, No JVD, Negative Carotid Bruits Lungs: Clear to auscultation, Normal air movement, No rhonchi, No wheeze Cardiovascular: Regular rate, Regular Rhythm, Normal S1, Normal S2, No murmurs Abdomen: Bowel Sounds Present, Soft, Non Tender Extremities: No clubbing, No cyanosis, No edema, Capillary Refill Less than 3 Seconds Skin: No rashes, No breakdown Musculoskeletal: No Tenderness to Palpation of Joints or Extremities Lymphatic: No Cervical, Supraclavicular, or Inguinal Adenopathy Neurological: Cranial nerves II-XII grossly intact, Neuro grossly intact, Motor Exam 5/5 strength throughout, Slurred Speech, - - NIHSS is 5 Psych/Mental Status: Normal Affect, Appropriate, Alert and oriented to time, place, person, mood and affect Laboratory Results 03/18/20 16:15: WBC 13.6 H, RBC 3.69 L, Hgb 10.9 L, Hct 35.2 L, MCV 95.4, MCH 29.5, MCHC 31.0 L, RDW Std Deviation 47.4 H, RDW Coeff of Andrew 13.3, Plt Count 371, MPV 11.0, Immature Gran % (Auto) 0.600, Neut % (Auto) 84.6 H, Lymph % (Auto) 9.4 L, Mcclain % (Auto) 4.9, Eos % (Auto) 0.1, Baso % (Auto) 0.4, Absolute Neuts (auto) 11.5 H, Absolute Lymphs (auto) 1.27, Nucleated RBC % 0 03/18/20 16:15: PT 13.5, INR 1.1, APTT 22.3 L 03/18/20 16:15: Sodium 138, Potassium 4.7, Chloride 108 H, Carbon Dioxide 22.0, Anion Gap 8, BUN 38 H, Creatinine 1.19 H, Estim Creat Clear Calc 33.53, Est GFR (MDRD) Af Amer 56 L, Est GFR (MDRD) Non-Af 46 L, BUN/Creatinine Ratio 31.9 H, Glucose 194 H, Calcium 9.7, Troponin I < 0.015 03/18/20 16:15: Hemoglobin A1c 5.6 03/18/20 17:26: Urine Color Yellow, Urine Clarity Clear, Urine pH 6.0, Ur Specific [place] 1.010, Urine Protein Negative, Urine Glucose (UA) Normal, Urine Ketones Negative, Urine Occult Blood 10 H, Urine Nitrite Negative, Urine Bilirubin Negative, Urine Urobilinogen Normal, Ur Leukocyte Esterase Negative, Urine RBC 0-5 SEEN, Urine WBC 0 SEEN, Ur Squamous Epith Cells 0 SEEN, Urine Bacteria 0 SEEN, Urine Mucus 0 SEEN 03/18/20 22:24: POC Glucose 107 03/19/20 05:08: WBC 9.1, RBC 3.26 L, Hgb 9.6 L, Hct 33.0 L, MCV 101.2 H D, MCH 29.4, MCHC 29.1 L D, RDW Std Deviation 49.5 H, RDW Coeff of Andrew 13.3, Plt Count 308, MPV 11.0, Immature Gran % (Auto) 0.400, Neut % (Auto) 68.2, Lymph % (Auto) 18.3 L, Mcclain % (Auto) 10.2 H, Eos % (Auto) 2.2, Baso % (Auto) 0.7, Absolute Neuts (auto) 6.2, Absolute Lymphs (auto) 1.66, Nucleated RBC % 0 03/19/20 05:08: Sodium 141, Potassium 4.2, Chloride 112 H, Carbon Dioxide 22.0, Anion Gap 7, BUN 32 H, Creatinine 1.01, Estim Creat Clear Calc 39.51, Est GFR (MDRD) Af Amer 67, Est GFR (MDRD) Non-Af 56 L, BUN/Creatinine Ratio 31.7 H, Glucose 78, Calcium 8.7, Triglycerides 88, Cholesterol 160, LDL Cholesterol 102, VLDL Cholesterol 18, HDL Cholesterol 40 03/19/20 06:07: POC Glucose [address] 03/18/20 16:14 IMPRESSION: 1. Chronic ischemic and involutional changes of the brain. 2. 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 Electronically Signed: Osmel Iqbal MD at 16:40 EST , Service support , ADDENDUM: 03/18/20 1710 IMPRESSION: 1. Chronic ischemic and involutional changes of the brain. 2. 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 N.B. : The above information has been verbally conveyed by Osmel Iqbal MD to Ellyn Cheung MD, on 03/18/2020 17:03:07 (ET). Electronically Signed: Osmel Iqbal MD at 16:40 EST , Service support , Chest X-Ray 03/18/20 16:14 IMPRESSION: 1. Cardiomegaly there is a retrocardiac hiatal hernia versus prominent left atrium. 2. Atherosclerotic tortuosity of the aorta with question uncoiling. Question ascending thoracic aortic aneurysm. Electronically Signed: Adryan Valadez DO at 17:14 EST Tel [phone], Service support , Head/Neck CTA 03/18/20 16:14 IMPRESSION: 1. 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 2. There is calcified plaque formation of the left cavernous carotid artery, with a mild stenosis (less than 50%). 3. There is extensive atherosclerotic plaque formation of the origin of the left internal carotid artery with an estimated stenosis of greater than 70%. 4. Expected diminished vascularity in the area of previously infarcted parenchyma of the right temporal lobe. Electronically Signed: Osmel Iqbal MD at 17:06 EST , Service support , Brain MRI 03/19/20 09:15 IMPRESSION: Involutional changes of the brain, as described above. Acute/subacute the punctate white matter infarcts in the periventricular white matter of the left parietal lobe. Electronically Signed: Levy Mendez MD at 10:01 EST Tel , Service support , ADDENDUM: 03/19/20 1011 IMPRESSION: Involutional changes of the brain, as described above. Acute/subacute the punctate white matter infarcts in the periventricular white matter of the left parietal lobe. N.B. : The above information has been verbally conveyed by Levy Mendez MD to Carmen Laboy RN, on 03/19/2020 10:04:47 (ET). Electronically Signed: Levy Mendez MD at 10:01 EST Tel , Service support , Current Medications Acetaminophen (Acetaminophen 325 Mg Tablet) 650 mg PO Q6H PRN PRN PRN Reason: Pain Score 1-10/Temp > 100.7 F Aspirin (Aspirin 81 Mg Tab.Chew) 81 mg PO DAILY@0800 [facility] Last Admin: 03/19/20 11:29 Dose: 81 mg Documented by: Atorvastatin Calcium (Atorvastatin Calcium 80 Mg Tablet) 80 mg PO QHS [facility] Last Admin: 03/18/20 22:17 Dose: Not Given Documented by: Citalopram Hydrobromide (Citalopram 40 Mg Tablet) 40 mg PO DAILY [facility] Last Admin: 03/19/20 11:29 Dose: 40 mg Documented by: Donepezil HCl (Donepezil Hcl 5 Mg Tablet) 5 mg PO DAILY [facility] Last Admin: 03/19/20 11:29 Dose: 5 mg Documented by: Enoxaparin Sodium (Enoxaparin 30 Mg/0.3 Ml Syringe) 30 mg SC DAILY [facility] Last Admin: 03/19/20 11:28 Dose: 30 mg Documented by: Ferrous Sulfate (Ferrous Sulfate 325 Mg Tablet) 325 mg PO DAILY@1200 [facility] Last Admin: 03/19/20 11:28 Dose: 325 mg Documented by: Sodium Chloride () 1,000 mls @ 75 mls/hr IV .[id number] [facility] Last Admin: 03/18/20 22:16 Dose: 75 mls/hr Documented by: Insulin Human Lispro (Insulin Lispro 100 Unit/Ml Insuln.Pen) 0 unit SC Q6 [facility]; Protocol Last Admin: 03/19/20 06:38 Dose: Not Given Documented by: Loratadine (Loratadine 10 Mg Tablet) 10 mg PO DAILY [facility] Last Admin: 03/19/20 11:29 Dose: 10 mg Documented by: Meloxicam (Meloxicam 15 Mg Tablet) 15 mg PO QHS [facility] Last Admin: 03/18/20 22:17 Dose: Not Given Documented by: Ondansetron HCl (Ondansetron 4 Mg/2 Ml Vial) 4 mg IV Q8H PRN PRN PRN Reason: NAUSEA/VOMITING Senna/Docusate Sodium (Senna/Docusate Sodium 1 Tablet) 2 tablet PO BID PRN PRN PRN Reason: Constipation Sodium Chloride (0.9% Saline Lock 10 Ml Syringe) 10 - 40 ml IV UD PRN PRN Reason: SALINE FLUSH Last Admin: 03/19/20 08:32 Dose: 10 ml Documented by: Zolpidem Tartrate (Zolpidem Tartrate 5 Mg Tablet) 5 mg PO QHS PRN PRN PRN Reason: INSOMNIA STROKE Vital Signs/Narrative: Vital Signs Pulse Resp BP Pulse Ox 03/19/20 09:12 62 16 144/55 H 96 03/19/20 09:07 65 16 133/58 H 95 03/19/20 09:02 68 16 135/61 H 100 03/19/20 08:57 65 16 135/58 H 97 03/19/20 08:51 69 16 126/53 H 94 Medical Necessity - Tobacco Use Smoking Status: Never smoker Tobacco Use: Cigarettes Assessment/Plan All Active Problems Renal insufficiency (Acute) Weakness of right side of body (Acute) Hyperglycemia (Acute) # Acute CVA admitted with right facial droop and right sided weakness CT of the brain was negative CTA of the head and neck showed moderate stenosis (50-75%) of the right cavernous carotid artery, with a calcified plaque, with mild stenosis (50%) of the left cavernous carotid artery; extensive atherosclerotic plaque formation of the origin of the left internal carotid artery with estimated stenosis of >70% MRi of the brain showed acute/subacute punctate white matter infarcts in the periventricular white matter of the left parietal lobe 2D echo pending on aspirin, high intensity statin neurology consuletd; recommend dual antiplatelet therapy, and vascular surgery consult PT/OT and speech therapy on board fall precautions #Anemia: Hemoglobin is 9.6. Was 10.9 on admission. Will monitor. Oral iron supplementation. #Hypertension: Resume Norvasc and losartan as well as metoprolol and Maxide. #Dementia: On donepezil Depression: On Celexa DVT prophylaxis: Lovenox Inpatient E&M: 98796 Subs Hosp L2
[2020-03-19 12:10] LABS: Bedside Glucose 92 mg/dL (70-110)
--- NOTE | 2020-03-19 13:58 | CASEMGMT ---
SHARLENE SEPULVEDA assessment: Phone interview with patient's granddaughter, Franchesca Qureshi, for initial transition planning/care coordination assessment as pt has a GCS of 14 at this time and hx of dementia. RN COCO introduced self and role at [facility], granddaughter voices understanding and consents to assessment at this time. Care providers, pharmacy, and demographics verified/updated at this time. Presentation: Right sided weakness w/ facial droop that began in front of family member at 1500. Stroke alert called Admitting dx: CVA PCP: Lillian Specialists: Pt has not current specialists. [facility] Insurance: [facility] Prescription Benefit: [facility] Living Will/HPOA: Per granddaughter, her and her are pt's HPOA and she brought paperwork in to ED to place on pt chart. LNOK: Rajan and Franchesca Qureshi, grandson/bdzbidsujvgal-vo-cef Living Arrangements: Pt lives with grandson/tqcrtydadjcax-[id number] in 1 story home and granddaughter states no concerns at home at this time. Pt gets assist with ADL's and someone is with pt 07/12. Transportation: Pt's family drives and states no transportation concerns at this time. DME/HHC: Pt has the following DME: walker, shower chair, and BSC. Granddaughter denies need for any further DME. Pt has had HHC in the past when lived in [place]. Granddaughter states no concerns with pt coming home at time of discharge. Pt is retired. Pt does not smoke cigarettes or drink ETOH. Granddaughter voices no further questions/concerns/needs at this time. CM to follow PT/OT/ST evals and for any further discharge planning/needs. Advised granddaughter to ask for CM if any further questions/concerns/needs arise, voices understanding. Pt Goal: Home Plan: Home, pending therapy evals. SStaten SHARLENE SEPULVEDA
[2020-03-19] MEDS: 0.9% Normal Saline 1,000 ML 75 ML IV ×2 (20:03→22:55)
[2020-03-19] MEDS: Atorvastatin Calcium 80 MG Tablet PO (22:23)
[2020-03-19] MEDS: Meloxicam 15 MG Tablet PO (22:23)
[2020-03-20] VITALS (12 sets, daily range): BP systolic 125–153; BP diastolic 43–82; PULSE 57–91; RESP 14–18; TEMP 36.7–37.2; O2SAT 95–100; BMI 23.5
[2020-03-20 00:06] LABS: Bedside Glucose 76 mg/dL (70-110)
--- NOTE | 2020-03-20 03:57 | NURSING ---
Pt unwilling to participate in holding legs up to assess drift or the finger to nose test to assess ataxia.
[2020-03-20 05:36] LABS: Absolute Lymphocyte Count 1.46 X10^3/uL (0.83-4.51); Absolute Neutrophil Count 4.1 X10^3/uL (2.0-7.7); Basophil# 0.06 X10^3/uL; Basophil% 0.9 % (0-1); Eosinophil# 0.18 X10^3/uL; Eosinophils% 2.7 % (0-5); Hematocrit 27.9 % (37-47); Hemoglobin 8.6 g/dL (12.0-15.0); Lymphocyte # 1.46 X10^3/ul (4.0); Lymphocyte % 22.2 % (19-41); Mean Corp Hgb Conc 30.8 g/dL (32-36); Mean Corpuscular Hgb 29.8 pg (27.0-32.0); Mean Corpuscular Volume 96.5 fL (81-99); Mean Platelet Vol. 10.9 fl (6.2-12.0); Monocyte# 0.76 X10^3/uL; Monocyte% 11.5 % (0-10); NRBC Flagged by Analyzer 0 % (0-5); Neutrophil # 4.11 X10^3/uL (2.7-7.7); Neutrophil % 62.4 % (47-70); Platelet Count 275 K/mm3 (150-450); RBC Distribution Width CV 13.3 % (11.6-14.6); RBC Distribution Width SD 47.5 fl (35.1-43.9); Red Blood Count 2.89 M/mm3 (4.2-5.4); White Blood Count 6.6 K/mm3 (4.4-11.0)
[2020-03-20 05:46] LABS: Bedside Glucose 83 mg/dL (70-110)
[2020-03-20 06:11] LABS: Anion Gap 5 (5-15); BUN 23 mg/dL (7-18); BUN/Creat Ratio 28.3 RATIO (10-20); Calcium,Total 8.4 mg/dL (8.5-10.1); Chloride 115 mmol/L (98-107); Creatinine, Serum 0.81 mg/dL (0.55-1.02); EST Glomerular Filtration Rate 71 mL/min (>60); Est Glom Filt Rate - Afr Amer 86 mL/min (>60); Estimated Creatinine Clearance 49.26 ml/min; Glucose 82 mg/dL (74-106); Potassium 3.9 mmol/L (3.5-5.1); Sodium Level 142 mmol/L (136-145)
[2020-03-20] MEDS: Citalopram 40 MG TABLET PO (07:43)
[2020-03-20] MEDS: Loratadine 10 MG Tablet PO (07:43)
[2020-03-20] MEDS: Aspirin 81 MG TAB.CHEW PO (07:43)
[2020-03-20] MEDS: Donepezil HCl 5 MG Tablet PO (07:43)
--- NOTE | 2020-03-20 11:48 | PCM.CONS.GEN ---
Problem List (1) CVA (cerebral vascular accident) Status: Acute (2) Weakness of right side of body Status: Acute Reason for Consult Date of Consultation: 03/20/20 History of Present Illness: The patient is a 84 year old F that presented in with right-sided weakness, facial droop and aphasia. No prior history of stroke. She does have some improvement since being admitted. Still some evidence of aphasia but able to answer little bit better than what it peers described from earlier notes. Patient was on an aspirin at home. She had an echo and do not have the results yet. MRI showed a left parietal infarct. Carotid duplex showed a severe left mid carotid stenosis with an end-diastolic of 78. Bilateral vertebral arteries were antegrade and right carotid normal. She had a CTA that showed some bilateral cavernous moderate plaque. Very severe stenosis of the left internal carotid artery 2 cm above the bifurcation. This is through a tortuous segment as well. Vascular surgery consulted for evaluation of this. [] Past Medical History Past Medical History (Chronic Problems): Chronic Problems Depression (Chronic) Dementia (Chronic) Hypertension (Chronic) Allergies No Known Allergies Allergy (Verified 03/18/20 16:17) Home Medications: Ambulatory Orders Medication Instructions Recorded Acetaminophen [Tylenol Arthritis] 650 mg PO Q8H PRN PRN 03/18/20 Amlodipine [Norvasc] 10 mg PO DAILY 03/18/20 Aspirin 81 mg PO DAILY 03/18/20 Bupropion HCl [Zyban] 150 mg PO DAILY 03/18/20 Cholecalciferol (Vitamin D3) 50 mcg PO DAILY 03/18/20 [Vitamin D3] Citalopram [Celexa] 40 mg PO DAILY 03/18/20 Cyanocobalamin (Vitamin B-12) 2,500 mcg PO DAILY 03/18/20 [Vitamin B12] Donepezil HCl 5 mg PO DAILY 03/18/20 Ferrous Sulfate [Ferosul] 325 mg PO DAILY 03/18/20 Loratadine 10 mg PO DAILY 03/18/20 Losartan Potassium [Cozaar] 50 mg PO BID 03/18/20 Magnesium Chloride [Slow-Mag] 71.5 mg PO DAILY 03/18/20 Meloxicam 15 mg PO QHS 03/18/20 Metoprolol Tartrate [Lopressor 25 mg PO BID 03/18/20 (Beta Andrea)] Triamterene 75MG/Hctz 50MG 1 tab PO QODAY 03/18/20 [Maxzide] Surgical History: noncontributory Psychiatric History: Depression 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 Lives: With Family Smoking Status: Never smoker Tobacco Use: Cigarettes Alcohol: None Drugs: None - *Family History Maternal History Items: No pertinent history Paternal History Items: No pertinent history Review of Systems Constitutional: Denies: Chills, Fever, Weight Change HEENT: Reports: - - Aphasia Cardiovascular: Denies: Chest Pain, Palpitations Respiratory: Denies: Cough, Shortness of breath at rest, Sputum production Gastrointestinal: Denies: Abdominal Pain, Nausea, Vomiting Genitourinary: Denies: Dysuria Musculoskeletal: Denies: Joint Pain, Joint Tenderness Patient Problems: Active and Suspected Problems CVA (cerebral vascular accident) (Acute) Renal insufficiency (Acute) Weakness of right side of body (Acute) Hyperglycemia (Acute) - Physical Exam Vitals/I&O's: Vital Signs Temp Pulse Resp BP Pulse Ox 98.0 F 57 L 14 134/55 H 100 03/20/20 07:40 03/20/20 07:40 03/20/20 07:40 03/20/20 07:40 03/20/20 08:18 Oxygen Delivery Method Room Air Weight: 145 lb 8.081 oz Body Mass Index (BMI) 23.5 Finger Stick Blood Glucose 212 Intake and Output for Last 24 Hours 03/18/20 03/19/20 03/20/20 23:59 23:59 23:59 Intake Total 570 / 570 2048.75 / 2048.75 656.25 / 656.25 Balance 570 / 570 2048.75 / 8.75 656.25 / 656.25 General: Alert - May have some confusion, has a history of dementia, or if more related to the aphasia, but does appear to answer most questions appropriately when able HEENT: Atraumatic, PERRLA Oral: Moist Mucosa Neck: Supple, Carotid Bruit, Left Lungs: Clear to auscultation Cardiovascular: Regular rate Abdomen: Soft, Non Tender Extremities: No clubbing, - - Palpable radial pulses Difficult to feel pedal pulses but feet appear well perfused Musculoskeletal: - - Moves extremities bilateral. Appears adequate strength right arm at this point, Laboratory Results 03/19/20 12:06: POC Glucose 92 03/19/20 23:57: POC Glucose 76 03/20/20 05:12: WBC 6.6, RBC 2.89 L, Hgb 8.6 L, Hct 27.9 L, MCV 96.5, MCH 29.8, MCHC 30.8 L D, RDW Std Deviation 47.5 H, RDW Coeff of Andrew 13.3, Plt Count 275, MPV 10.9, Immature Gran % (Auto) 0.300, Neut % (Auto) 62.4, Lymph % (Auto) 22.2, [place] % (Auto) 11.5 H, Eos % (Auto) 2.7, Baso % (Auto) 0.9, Absolute Neuts (auto) 4.1, Absolute Lymphs (auto) 1.46, Nucleated RBC % 0 03/20/20 05:12: Sodium 142, Potassium 3.9, Chloride 115 H, Carbon Dioxide 22.0, Anion Gap 5, BUN 23 H, Creatinine 0.81, Estim Creat Clear Calc 49.26, Est GFR (MDRD) Af Amer 86, Est GFR (MDRD) Non-Af 71, BUN/Creatinine Ratio 28.3 H, Glucose 82, Calcium 8.4 L 03/20/20 05:41: POC Glucose 83 Current Medications Acetaminophen (Acetaminophen 325 Mg Tablet) 650 mg PO Q6H PRN PRN PRN Reason: Pain Score 1-10/Temp > 100.7 F Aspirin (Aspirin 81 Mg Tab.Chew) 81 mg PO DAILY@0800 [facility] Last Admin: 03/20/20 07:43 Dose: 81 mg Documented by: Atorvastatin Calcium (Atorvastatin Calcium 80 Mg Tablet) 80 mg PO QHS [facility] Last Admin: 03/19/20 22:23 Dose: 80 mg Documented by: Citalopram Hydrobromide (Citalopram 40 Mg Tablet) 40 mg PO DAILY [facility] Last Admin: 03/20/20 07:43 Dose: 40 mg Documented by: Donepezil HCl (Donepezil Hcl 5 Mg Tablet) 5 mg PO DAILY [facility] Last Admin: 03/20/20 07:43 Dose: 5 mg Documented by: Ferrous Sulfate (Ferrous Sulfate 325 Mg Tablet) 325 mg PO DAILY@1200 [facility] Last Admin: 03/19/20 11:28 Dose: 325 mg Documented by: Insulin Human Lispro (Insulin Lispro 100 Unit/Ml Insuln.Pen) 0 unit SC Q6 [facility]; Protocol Last Admin: 03/20/20 05:42 Dose: Not Given Documented by: Loratadine (Loratadine 10 Mg Tablet) 10 mg PO DAILY [facility] Last Admin: 03/20/20 07:43 Dose: 10 mg Documented by: Meloxicam (Meloxicam 15 Mg Tablet) 15 mg PO QHS [facility] Last Admin: 03/19/20 22:23 Dose: 15 mg Documented by: Ondansetron HCl (Ondansetron 4 Mg/2 Ml Vial) 4 mg IV Q8H PRN PRN PRN Reason: NAUSEA/VOMITING Senna/Docusate Sodium (Senna/Docusate Sodium 1 Tablet) 2 tablet PO BID PRN PRN PRN Reason: Constipation Sodium Chloride (0.9% Saline Lock 10 Ml Syringe) 10 - 40 ml IV UD PRN PRN Reason: SALINE FLUSH Last Admin: 03/19/20 22:55 Dose: 10 ml Documented by: Zolpidem Tartrate (Zolpidem Tartrate 5 Mg Tablet) 5 mg PO QHS PRN PRN PRN Reason: INSOMNIA Assessment/Plan All Active Problems CVA (cerebral vascular accident) (Acute) Renal insufficiency (Acute) Weakness of right side of body (Acute) Hyperglycemia (Acute) 1. Stroke. Patient appears to have a symptomatic left carotid stenosis. Agree with adding Plavix to her aspirin. We will plan on seeing the patient back in the office in 2 to 3 weeks and discussing possible left carotid endarterectomy if the patient and family agrees to proceed. She would need cardiac clearance prior to this.
[2020-03-20 12:36] LABS: Bedside Glucose 108 mg/dL (70-110)
[2020-03-20] MEDS: Ferrous Sulfate 325 MG Tablet PO (12:51)
--- NOTE | 2020-03-20 15:37 | CASEMGMT ---
This SHARLENE SEPULVEDA placed call to granddaughter regarding HHC and she is agreeable at this time. After local in-network HHC agencies discussed, granddaughter states she would like referral faxed to [facility] at this time. Referral faxed and message left with Louise in intake regarding pt at this time. Order placed for PT/OT at this time. Call back to granddaughter to update and per Dr. Syed, she will not discharge until tomorrow pending occult stool to come back and re-check hgb, granddaughter voices understanding. SStnato SU CM
[2020-03-20] MEDS: Clopidogrel Bisulfate 75 MG Tablet PO (15:53)
--- NOTE | 2020-03-20 15:55 | PCM.PN.HOSP ---
Patient Problems: Active and Suspected Problems CVA (cerebral vascular accident) (Acute) Renal insufficiency (Acute) Weakness of right side of body (Acute) Hyperglycemia (Acute) Subjective: Patient seen and examined. She had no complaints and was sitting comfortably in her bed. Review of systems otherwise negative. Labs and vitals reviewed. Hemoglobin noted to have dropped to 8.6 today and per her nurse, patient had dark stools. She is however on iron tablets and is not clear whether this is due to melena or due to the iron supplementation. Should be hemodynamically stable otherwise. Vitals/I&O's: Vital Signs Temp Pulse Resp BP Pulse Ox 98.9 F 79 16 136/58 H 99 03/20/20 14:15 03/20/20 15:01 03/20/20 14:15 03/20/20 14:15 03/20/20 14:15 Oxygen Delivery Method Room Air Weight: 145 lb 8.081 oz Body Mass Index (BMI) 23.5 Finger Stick Blood Glucose 212 Intake and Output for Last 24 Hours 03/18/20 03/19/20 03/20/20 23:59 23:59 23:59 Intake Total 570 / 570 2048.75 / 2048.75 656.25 / 656.25 Balance 570 / 570 2048.75 / 2048.75 656.25 / 656.25 General: Alert, Confused, HEENT: Atraumatic, PERRLA, EOMI, Normocephalic Oral: Dry Mucosa Neck: Supple, No JVD, Negative Carotid Bruits Lungs: Clear to auscultation, Normal air movement, No rhonchi, No wheeze Cardiovascular: Regular rate, Regular Rhythm, Normal S1, Normal S2, No murmurs Abdomen: Bowel Sounds Present, Soft, Non Tender Extremities: No clubbing, No cyanosis, No edema, Capillary Refill Less than 3 Seconds Skin: No rashes, No breakdown Musculoskeletal: No Tenderness to Palpation of Joints or Extremities Lymphatic: No Cervical, Supraclavicular, or Inguinal Adenopathy Neurological: Cranial nerves II-XII grossly intact, Neuro grossly intact, Motor Exam 5/5 strength throughout, Psych/Mental Status: Normal Affect, Appropriate, Alert and oriented to time, place, person, mood and affect Laboratory Results 03/19/20 23:57: POC Glucose 76 03/20/20 05:12: WBC 6.6, RBC 2.89 L, Hgb 8.6 L, Hct 27.9 L, MCV 96.5, MCH 29.8, MCHC 30.8 L D, RDW Std Deviation 47.5 H, RDW Coeff of Andrew 13.3, Plt Count 275, MPV 10.9, Immature Gran % (Auto) 0.300, Neut % (Auto) 62.4, Lymph % (Auto) 22.2, Miller % (Auto) 11.5 H, Eos % (Auto) 2.7, Baso % (Auto) 0.9, Absolute Neuts (auto) 4.1, Absolute Lymphs (auto) 1.46, Nucleated RBC % 0 03/20/20 05:12: Sodium 142, Potassium 3.9, Chloride 115 H, Carbon Dioxide 22.0, Anion Gap 5, BUN 23 H, Creatinine 0.81, Estim Creat Clear Calc 49.26, Est GFR (MDRD) Af Amer 86, Est GFR (MDRD) Non-Af 71, BUN/Creatinine Ratio 28.3 H, Glucose 82, Calcium 8.4 L 03/20/20 05:41: POC Glucose 83 03/20/20 12:29: POC Glucose 108 Current Medications Acetaminophen (Acetaminophen 325 Mg Tablet) 650 mg PO Q6H PRN PRN PRN Reason: Pain Score 1-10/Temp > 100.7 F Aspirin (Aspirin 81 Mg Tab.Chew) 81 mg PO DAILY@0800 [facility] Last Admin: 03/20/20 07:43 Dose: 81 mg Documented by: Atorvastatin Calcium (Atorvastatin Calcium 80 Mg Tablet) 80 mg PO QHS [facility] Last Admin: 03/19/20 22:23 Dose: 80 mg Documented by: Citalopram Hydrobromide (Citalopram 40 Mg Tablet) 40 mg PO DAILY [facility] Last Admin: 03/20/20 07:43 Dose: 40 mg Documented by: Clopidogrel Bisulfate (Clopidogrel Bisulfate 75 Mg Tablet) 75 mg PO DAILY [facility] Donepezil HCl (Donepezil Hcl 5 Mg Tablet) 5 mg PO DAILY [facility] Last Admin: 03/20/20 07:43 Dose: 5 mg Documented by: Ferrous Sulfate (Ferrous Sulfate 325 Mg Tablet) 325 mg PO DAILY@1200 [facility] Last Admin: 03/20/20 12:51 Dose: 325 mg Documented by: Insulin Human Lispro (Insulin Lispro 100 Unit/Ml Insuln.Pen) 0 unit SC Q6 [facility]; Protocol Last Admin: 03/20/20 12:48 Dose: Not Given Documented by: Loratadine (Loratadine 10 Mg Tablet) 10 mg PO DAILY [facility] Last Admin: 03/20/20 07:43 Dose: 10 mg Documented by: Ondansetron HCl (Ondansetron 4 Mg/2 Ml Vial) 4 mg IV Q8H PRN PRN PRN Reason: NAUSEA/VOMITING Senna/Docusate Sodium (Senna/Docusate Sodium 1 Tablet) 2 tablet PO BID PRN PRN PRN Reason: Constipation Sodium Chloride (0.9% Saline Lock 10 Ml Syringe) 10 - 40 ml IV UD PRN PRN Reason: SALINE FLUSH Last Admin: 03/19/20 22:55 Dose: 10 ml Documented by: Zolpidem Tartrate (Zolpidem Tartrate 5 Mg Tablet) 5 mg PO QHS PRN PRN PRN Reason: INSOMNIA STROKE Vital Signs/Narrative: Vital Signs Temp Pulse Resp BP Pulse Ox 03/20/20 15:01 79 03/20/20 14:15 98.9 F 70 16 136/58 H 99 Medical Necessity - Tobacco Use Smoking Status: Never smoker Tobacco Use: Cigarettes Assessment/Plan All Active Problems CVA (cerebral vascular accident) (Acute) Renal insufficiency (Acute) Weakness of right side of body (Acute) Hyperglycemia (Acute) # Acute CVA admitted with right facial droop and right sided weakness CT of the brain was negative CTA of the head and neck showed moderate stenosis (50-75%) of the right cavernous carotid artery, with a calcified plaque, with mild stenosis (50%) of the left cavernous carotid artery; extensive atherosclerotic plaque formation of the origin of the left internal carotid artery with estimated stenosis of >70% MRi of the brain showed acute/subacute punctate white matter infarcts in the periventricular white matter of the left parietal lobe 2D echo: EF of 65% with normal left ventricular size and function. Left atrium moderately enlarged and right atrium mildly enlarged. RVSP 22 mmHg. on aspirin, high intensity statin; Plavix added on. Vascular surgery consulted: Recommend follow-up in the office in 2 weeks for discussion about right-sided carotid endarterectomy if family agrees. Will need cardiac clearance prior to this, and this could be pursued outpatient basis. PT/OT and speech therapy on board fall precautions #Anemia: Hemoglobin is 8.6 today. Was 10.9 on admission. Will monitor. Oral iron supplementation. FOBT pending. #Hypertension: Resume Norvasc and losartan as well as metoprolol and Maxide. #Dementia: On donepezil Depression: On Celexa DVT prophylaxis: SCDs. DC Lovenox in light of anemia Disposition: For discharge home with home health care once medically stable. Inpatient E&M: 97243 Subs Hosp L2
[2020-03-20] MEDS: 0.9% Saline Lock 10 ML Syringe IV (18:12)
[2020-03-20 18:16] LABS: Bedside Glucose 98 mg/dL (70-110)
[2020-03-20] MEDS: Metoprolol Tartrate 5 MG/5 ML Vial 2.5 MG IV (18:20)
[2020-03-20] MEDS: Metoprolol Tartrate 25 MG Tablet PO (18:22)
[2020-03-20] MEDS: Atorvastatin Calcium 80 MG Tablet PO (21:25)
[2020-03-20 22:06] LABS: Bedside Glucose 95 mg/dL (70-110)
[2020-03-21] VITALS (8 sets, daily range): BP systolic 120–134; BP diastolic 58–65; PULSE 59–70; RESP 14–18; TEMP 36.6–36.8; O2SAT 96–98; BMI 23.5
[2020-03-21 06:26] LABS: Bedside Glucose 87 mg/dL (70-110)
[2020-03-21 08:33] LABS: Absolute Lymphocyte Count 1.19 X10^3/uL (0.83-4.51); Absolute Neutrophil Count 5.4 X10^3/uL (2.0-7.7); Basophil# 0.04 X10^3/uL; Basophil% 0.5 % (0-1); Eosinophils% 2.6 % (0-5); Hemoglobin 9.7 g/dL (12.0-15.0); Lymphocyte # 1.19 X10^3/ul (4.0); Lymphocyte % 15.4 % (19-41); Mean Corp Hgb Conc 31.3 g/dL (32-36); Mean Corpuscular Hgb 29.1 pg (27.0-32.0); Mean Corpuscular Volume 93.1 fL (81-99); Mean Platelet Vol. 10.9 fl (6.2-12.0); Monocyte# 0.81 X10^3/uL; Monocyte% 10.5 % (0-10); NRBC Flagged by Analyzer 0 % (0-5); Neutrophil # 5.43 X10^3/uL (2.7-7.7); Neutrophil % 70.5 % (47-70); Platelet Count 315 K/mm3 (150-450); RBC Distribution Width CV 13.2 % (11.6-14.6); Red Blood Count 3.33 M/mm3 (4.2-5.4); White Blood Count 7.7 K/mm3 (4.4-11.0)
[2020-03-21] MEDS: Loratadine 10 MG Tablet PO (09:13)
[2020-03-21] MEDS: Clopidogrel Bisulfate 75 MG Tablet PO (09:13)
[2020-03-21] MEDS: Aspirin 81 MG TAB.CHEW PO (09:13)
[2020-03-21] MEDS: Donepezil HCl 5 MG Tablet PO (09:13)
[2020-03-21] MEDS: Citalopram 40 MG TABLET PO (09:13)
[2020-03-21] MEDS: Metoprolol Tartrate 25 MG Tablet PO (09:13)
[2020-03-21 11:06] LABS: Bedside Glucose 84 mg/dL (70-110)
[2020-03-21] MEDS: Ferrous Sulfate 325 MG Tablet PO (11:36)
--- NOTE | 2020-03-21 11:41 | DCINST_ITS ---
- Discharge Diagnoses Current Active Problems: Current Active and Chronic Problems CVA (cerebral vascular accident) (Acute) Renal insufficiency (Acute) Weakness of right side of body (Acute) Hyperglycemia (Acute) Depression (Chronic) Dementia (Chronic) Hypertension (Chronic) You will use the following diet at home:: Cardiac Your food should be the consistency of: Regular Your liquids should be the consistency of: Regular/Thin Discharge Activity: Return to Normal Activity Weight Bearing Status: Weight bearing as tolerated Call your doctor if you observe: Fever of 101 or Higher, Shortness of breath, Dizziness, Fainting spells, Swelling in the ankles Instructions: Symptoms of Stroke, What Is Ischemic Stroke?, Stroke: Taking Medications, Stroke: Self-Care, Carotid Artery Problems: Stroke Allergies/Adverse Reactions: Allergies No Known Allergies Allergy (Verified 03/18/20 16:17) Medications to take at Discharge Acetaminophen [Tylenol Arthritis] 650 mg PO Q8H PRN PRN 03/18/20 Amlodipine [Norvasc] 10 mg PO DAILY 03/18/20 Aspirin 81 mg PO DAILY 03/18/20 Bupropion HCl [Zyban] 150 mg PO DAILY 03/18/20 Cholecalciferol (Vitamin D3) [Vitamin D3] 50 mcg PO DAILY 03/18/20 Citalopram [Celexa] 40 mg PO DAILY 03/18/20 Cyanocobalamin (Vitamin B-12) [Vitamin B12] 2,500 mcg PO DAILY 03/18/20 Donepezil HCl 5 mg PO DAILY 03/18/20 Ferrous Sulfate [Ferosul] 325 mg PO DAILY 03/18/20 Loratadine 10 mg PO DAILY 03/18/20 Losartan Potassium [Cozaar] 50 mg PO BID 03/18/20 Magnesium Chloride [Slow-Mag] 71.5 mg PO DAILY 03/18/20 Metoprolol Tartrate [Lopressor (beta julita)] 25 mg PO BID 03/18/20 Triamterene 75MG/Hctz 50MG [Maxzide] 1 tab PO QODAY 03/18/20 Atorvastatin Calcium 40 mg PO QHS #30 tab 03/21/20 Clopidogrel Bisulfate [Plavix] 75 mg PO DAILY #30 tab 03/21/20 The following prescriptions were given: Atorvastatin Calcium 40 mg PO QHS #30 tab Transmission Status: Pending to [id number] Clopidogrel Bisulfate [Plavix] 75 mg PO DAILY #30 tab Transmission Status: Pending to [id number] Primary Care Physician: Care Physician,No Primary [NON-STAFF] - Test Results: Test results from this visit will be discussed in further detail at your follow- up appointment, if applicable. Please Follow Up With: Maurilio Bliss MD When: 2 weeks Please Follow Up With: Josie Snyder MD When: 1-2 weeks Proposed Discharge Date: 03/21/20
--- NOTE | 2020-03-21 11:41 | PCM.DC.SUM ---
Discharge Date and Diagnosis - Problem List Patient Problems: Active and Suspected Problems CVA (cerebral vascular accident) (Acute) Renal insufficiency (Acute) Weakness of right side of body (Acute) Hyperglycemia (Acute) Date of Admission: 03/18/20 Date of Discharge: 03/21/20 - Primary Discharge Diagnosis Acute Problems: Active Problems CVA (cerebral vascular accident) (Acute) Renal insufficiency (Acute) Weakness of right side of body (Acute) Hyperglycemia (Acute) carotid stenosis - Secondary Discharge Diagnosis Chronic Problems: Chronic Problems Depression (Chronic) Dementia (Chronic) Hypertension (Chronic) Hospital Course and Treatment Imaging Results: Diagnostic Data Brain CT 03/18/20 16:14 IMPRESSION: 1. Chronic ischemic and involutional changes of the brain. 2. 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 Electronically Signed: Osmel Iqbal MD at 16:40 EST , Service support , ADDENDUM: 03/18/20 1710 IMPRESSION: 1. Chronic ischemic and involutional changes of the brain. 2. 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 N.B. : The above information has been verbally conveyed by Osmel Iqbal MD to Ellyn Cheung MD, on 03/18/2020 17:03:07 (ET). Electronically Signed: Osmel Iqbal MD at 16:40 EST , Service support , Chest X-Ray 03/18/20 16:14 IMPRESSION: 1. Cardiomegaly there is a retrocardiac hiatal hernia versus prominent left atrium. 2. Atherosclerotic tortuosity of the aorta with question uncoiling. Question ascending thoracic aortic aneurysm. Electronically Signed: Adryan Valadez DO at 17:14 EST Tel [phone], Service support , Head/Neck CTA 03/18/20 16:14 IMPRESSION: 1. 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 2. There is calcified plaque formation of the left cavernous carotid artery, with a mild stenosis (less than 50%). 3. There is extensive atherosclerotic plaque formation of the origin of the left internal carotid artery with an estimated stenosis of greater than 70%. 4. Expected diminished vascularity in the area of previously infarcted parenchyma of the right temporal lobe. Electronically Signed: Osmel Iqbal MD at 17:06 EST , Service support , Brain MRI 03/19/20 09:15 IMPRESSION: Involutional changes of the brain, as described above. Acute/subacute the punctate white matter infarcts in the periventricular white matter of the left parietal lobe. Electronically Signed: Levy Mendez MD at 10:01 EST Tel , Service support , ADDENDUM: 03/19/20 1011 IMPRESSION: Involutional changes of the brain, as described above. Acute/subacute the punctate white matter infarcts in the periventricular white matter of the left parietal lobe. N.B. : The above information has been verbally conveyed by Levy Mendez MD to Carmen Laboy RN, on 03/19/2020 10:04:47 (ET). Electronically Signed: Levy Mendez MD at 10:01 EST Tel , Service support , neurology Operations: None Procedures: None Summary of Care Provided: The patient is a 84 year old F with a past medical history as outlined was admitted through the ED on 03/18/2020 with a complaint of right facial droop and right-sided weakness. Patient had been with her granddaughter on the afternoon of presentation when she started having a sudden onset of right-sided facial droop and her right upper and lower extremities also went completely flaccid. She had also had. Of slurred speech on the day before admission and she was taken to [facility] ED where CAT scan done of the brain was negative. She had a history of hypertension and was on blood pressure medication and also had a history of dementia as well as depression. On admission in the ED, she was found to be bradycardic with normal blood pressure and pulse ox of 96% on room air. Labs were unremarkable. EKG showed junctional rhythm with no acute ST changes and troponin was negative. CT of the brain was negative for any evidence of stroke. CT of the head and neck showed right cavernous carotid artery stenosis of 50 to 75% and less than 50% stenosis of the left cavernous carotid artery with more than 70% extensive plaque formation at the origin of the left internal carotid artery. [facility] neurology was consulted and patient was deemed a candidate for TPA at that time. She was admitted to be managed for CVA. She was started on aspirin and high intensity statin. Lipid panel done was within normal limits and A1c was 5.6. MRI of the brain done showed acute/subacute punctate white matter infarcts in the periventricular white matter of the left parietal lobe indicated of a stroke. 2D echo showed EF of 65% with normal left ventricular size and function with moderately enlarged left atrium and mildly enlarged right atrium. Neurology was consulted and recommended addition of Plavix to her medication. Patient was therefore started on Plavix which she is to take for 3 months ago with aspirin and then after that continue only on aspirin. Vascular surgery was also consulted on account of high-grade carotid artery stenosis and vascular surgery recommended follow-up in the office in 2 weeks for discussion about right-sided carotid endarterectomy family agreed. Patient would need cardiac clearance prior to this. PT OT and speech therapy were also on board during patient's care. Hospital stay was complicated by anemia. Fecal occult blood test was negative. Hemoglobin on day of discharge was 9.7 which is around her baseline. Patient was deemed as needed home health therapy. She was discharged home on 03/21/2020 with home health care and is to follow-up with her primary care doctor as well as vascular surgery and neurology. Patient seen and examined prior to discharge. She had no complaints. Review of symptoms otherwise negative. Labs and vitals reviewed. Home medication reviewed and reconciled. O/E: Vital Signs Temp Pulse Resp BP Pulse Ox 97.9 F 70 15 129/65 H 97 03/21/20 08:50 03/21/20 09:13 03/21/20 08:50 03/21/20 08:50 03/21/20 08:50 [] General: Alert, Confused, HEENT: Atraumatic, PERRLA, EOMI, Normocephalic Oral: Dry Mucosa Neck: Supple, No JVD, Negative Carotid Bruits Lungs: Clear to auscultation, Normal air movement, No rhonchi, No wheeze Cardiovascular: Regular rate, Regular Rhythm, Normal S1, Normal S2, No murmurs Abdomen: Bowel Sounds Present, Soft, Non Tender Extremities: No clubbing, No cyanosis, No edema, Capillary Refill Less than 3 Seconds Skin: No rashes, No breakdown Musculoskeletal: No Tenderness to Palpation of Joints or Extremities Lymphatic: No Cervical, Supraclavicular, or Inguinal Adenopathy Neurological: Cranial nerves II-XII grossly intact, Neuro grossly intact, Motor Exam 5/5 strength throughout, Psych/Mental Status: Normal Affect, Appropriate, Alert and oriented to time, place, person, mood and affect Plan is for discharge home today. Patient Problems: Active and Suspected Problems CVA (cerebral vascular accident) (Acute) Renal insufficiency (Acute) Weakness of right side of body (Acute) Hyperglycemia (Acute) - Physical Exam Vitals/I&O's: Vital Signs Temp Pulse Resp BP Pulse Ox 97.9 F 70 15 129/65 H 97 03/21/20 08:50 03/21/20 09:13 03/21/20 08:50 03/21/20 08:50 03/21/20 08:50 Oxygen Delivery Method Room Air Weight: 145 lb 8.081 oz Body Mass Index (BMI) 23.5 Finger Stick Blood Glucose 212 Intake and Output for Last 24 Hours 03/19/20 03/20/20 03/21/20 23:59 23:59 23:59 Intake Total 8.75 / 2047.75 656.25 / 656.25 Balance 8.75 / 8.75 656.25 / 656.25 Microbiology Past 72 Hours 03/20/20 15:40 Stool Stool Occult Blood (JERED) - Final Laboratory Results 03/20/20 12:29: POC Glucose 108 03/20/20 18:09: POC Glucose 98 03/20/20 21:24: POC Glucose 95 03/21/20 06:20: POC Glucose 87 03/21/20 08:10: WBC 7.7, RBC 3.33 L, Hgb 9.7 L, Hct 31.0 L, MCV 93.1, MCH 29.1, MCHC 31.3 L, RDW Std Deviation 45.0 H, RDW Coeff of Andrew 13.2, Plt Count 315, MPV 10.9, Immature Gran % (Auto) 0.500, Neut % (Auto) 70.5 H, Lymph % (Auto) 15.4 L, [place] % (Auto) 10.5 H, Eos % (Auto) 2.6, Baso % (Auto) 0.5, Absolute Neuts (auto) 5.4, Absolute Lymphs (auto) 1.19, Nucleated RBC % 0 03/21/20 11:00: POC Glucose 84 Current Medications Acetaminophen (Acetaminophen 325 Mg Tablet) 650 mg PO Q6H PRN PRN PRN Reason: Pain Score 1-10/Temp > 100.7 F Aspirin (Aspirin 81 Mg Tab.Chew) 81 mg PO DAILY@0800 [facility] Last Admin: 03/21/20 09:13 Dose: 81 mg Documented by: Atorvastatin Calcium (Atorvastatin Calcium 80 Mg Tablet) 80 mg PO QHS [facility] Last Admin: 03/20/20 21:25 Dose: 80 mg Documented by: Citalopram Hydrobromide (Citalopram 40 Mg Tablet) 40 mg PO DAILY [facility] Last Admin: 03/21/20 09:13 Dose: 40 mg Documented by: Clopidogrel Bisulfate (Clopidogrel Bisulfate 75 Mg Tablet) 75 mg PO DAILY [facility] Last Admin: 03/21/20 09:13 Dose: 75 mg Documented by: Donepezil HCl (Donepezil Hcl 5 Mg Tablet) 5 mg PO DAILY [facility] Last Admin: 03/21/20 09:13 Dose: 5 mg Documented by: Ferrous Sulfate (Ferrous Sulfate 325 Mg Tablet) 325 mg PO DAILY@1200 [facility] Last Admin: 03/21/20 11:36 Dose: 325 mg Documented by: Insulin Human Lispro (Insulin Lispro 100 Unit/Ml Insuln.Pen) 0 unit SC [facility]; Protocol Last Admin: 03/21/20 11:10 Dose: Not Given Documented by: Loratadine (Loratadine 10 Mg Tablet) 10 mg PO DAILY [facility] Last Admin: 03/21/20 09:13 Dose: 10 mg Documented by: Metoprolol Tartrate (Metoprolol Tartrate 25 Mg Tablet) 25 mg PO BID [facility] Last Admin: 03/21/20 09:13 Dose: 25 mg Documented by: Ondansetron HCl (Ondansetron 4 Mg/2 Ml Vial) 4 mg IV Q8H PRN PRN PRN Reason: NAUSEA/VOMITING Senna/Docusate Sodium (Senna/Docusate Sodium 1 Tablet) 2 tablet PO BID PRN PRN PRN Reason: Constipation Sodium Chloride (0.9% Saline Lock 10 Ml Syringe) 10 - 40 ml IV UD PRN PRN Reason: SALINE FLUSH Last Admin: 03/20/20 18:12 Dose: 10 ml Documented by: Zolpidem Tartrate (Zolpidem Tartrate 5 Mg Tablet) 5 mg PO QHS PRN PRN PRN Reason: INSOMNIA Discharge Diet: Low fat/ Low Cholesterol Home Medications: Medications to take at Discharge Acetaminophen [Tylenol Arthritis] 650 mg PO Q8H PRN PRN 03/18/20 Amlodipine [Norvasc] 10 mg PO DAILY 03/18/20 Aspirin 81 mg PO DAILY 03/18/20 Bupropion HCl [Zyban] 150 mg PO DAILY 03/18/20 Cholecalciferol (Vitamin D3) [Vitamin D3] 50 mcg PO DAILY 03/18/20 Citalopram [Celexa] 40 mg PO DAILY 03/18/20 Cyanocobalamin (Vitamin B-12) [Vitamin B12] 2,500 mcg PO DAILY 03/18/20 Donepezil HCl 5 mg PO DAILY 03/18/20 Ferrous Sulfate [Ferosul] 325 mg PO DAILY 03/18/20 Loratadine 10 mg PO DAILY 03/18/20 Losartan Potassium [Cozaar] 50 mg PO BID 03/18/20 Magnesium Chloride [Slow-Mag] 71.5 mg PO DAILY 03/18/20 Metoprolol Tartrate [Lopressor (beta julita)] 25 mg PO BID 03/18/20 Triamterene 75MG/Hctz 50MG [Maxzide] 1 tab PO QODAY 03/18/20 Atorvastatin Calcium 40 mg PO QHS #30 tab 03/21/20 Clopidogrel Bisulfate [Plavix] 75 mg PO DAILY #30 tab 03/21/20 Following Prescriptions Were Given to Patient: Atorvastatin Calcium 40 mg PO QHS #30 tab Transmission Status[id number] Clopidogrel Bisulfate [Plavix] 75 mg PO DAILY #30 tab Transmission Status: Received by [id number] Primary Care Physician: Care Physician,No Primary [NON-STAFF] - Please Follow Up With: Josie Snyder MD When: 1-2 weeks Please Follow Up With: Maurilio Bliss MD When: 2 weeks Please Follow Up With: Reji Walton MD When: 2-3 weeks Patient Instructions: Symptoms of Stroke, What Is Ischemic Stroke?, Stroke: Taking Medications, Stroke: Self-Care, Carotid Artery Problems: Stroke Disposition: Home with Home Health Minutes spent on discharge:: 40 Patient Condition:: Stable Medical Necessity - Tobacco Use Smoking Status: Never smoker Tobacco Use: Cigarettes Meaningful Use Info Meaningful Use Diagnoses (Choose all that apply): Ischemic CVA - CVA Therapy Assessed for PT,OT and/or ST?: Yes - Ischemic Stroke Antithrombotic order at d/c?: Yes Dx of Atrial fib/flutter?: No Anticoagulant at discharge?: No Reason anticoagulant not ordered: Treatment not Indicated Statins at discharge?: Yes Primary Dx Acute Ischemic CVA?: Yes IV tPA ordered during stay?: No Reason IV t-PA not ordered: Treatment not Indicated Inpatient E&M: 94429 Disch Hosp
--- NOTE | 2020-03-21 11:56 | CASEMGMT ---
Addendum entered by Radha Franco 03/21/20 12:12: Call to [facility] and they state they should be able to staff pt's area but may not be able to do start of care until wednesday. Call to Franchesca, pt's granddaughter, and she is updated on all at this time, voices understanding and is agreeable to referral to [facility]. Referral faxed to [facility] at this time. Pt has MBS scheduled for 1400 and Reji SU aware to update granddaughter with results when obtained. Per granddaughter, pt has not had a flu shot yet and ok to give at this time. Reji SU updated on all, voices understanding. Gen SU CM Original Note: Call back from [facility] and Louise states she cannot accept pt at this time. Gen SU CM
--- NOTE | 2020-03-21 14:00 | PHA.DC.MR ---
Pharmacy Service has performed discharge medication reconciliation for this patient. The patient's discharge medication list was reviewed for discrepancies and discrepancies were resolved. Home Medications Acetaminophen [Tylenol Arthritis] 650 mg PO Q8H PRN PRN 03/18/20 Amlodipine [Norvasc] 10 mg PO DAILY 03/18/20 Aspirin 81 mg PO DAILY 03/18/20 Bupropion HCl [Zyban] 150 mg PO DAILY 03/18/20 Cholecalciferol (Vitamin D3) [Vitamin D3] 50 mcg PO DAILY 03/18/20 Citalopram [Celexa] 40 mg PO DAILY 03/18/20 Cyanocobalamin (Vitamin B-12) [Vitamin B12] 2,500 mcg PO DAILY 03/18/20 Donepezil HCl 5 mg PO DAILY 03/18/20 Ferrous Sulfate [Ferosul] 325 mg PO DAILY 03/18/20 Loratadine 10 mg PO DAILY 03/18/20 Losartan Potassium [Cozaar] 50 mg PO BID 03/18/20 Magnesium Chloride [Slow-Mag] 71.5 mg PO DAILY 03/18/20 Metoprolol Tartrate [Lopressor (beta julita)] 25 mg PO BID 03/18/20 Triamterene 75MG/Hctz 50MG [Maxzide] 1 tab PO QODAY 03/18/20 Atorvastatin Calcium 40 mg PO QHS #30 tab 03/21/20 Clopidogrel Bisulfate [Plavix] 75 mg PO DAILY #30 tab 03/21/20
--- NOTE | 2020-03-21 14:01 | ST.MBS ---
Modified Barium Swallow - Patient Information Study Date: 03/21/20 Study Time: 14:00 Direct Billable Minutes: 100 Total Minutes procedure & reportin Diagnosis: oropharyngeal dysphagia (R13.12) Referring Physician: Taylor Syed Medical History: The patient is a 84 year old F with past medical history depression, dementia and HTN who presented to the ED on 03/18/2020 d/t acute onset of right facial droop and right side body weakness. Was seen at [facility] the day prior to [facility] presentation d/t episode of slurred speech, which resolved, CT negative, was discharged home. MRI 03/19/2020 Involutional changes of the brain. Acute/subacute the punctate white matter infarcts in the periventricular white matter of the left parietal lobe. NIHSS 5. Lung sounds reported to be clear w/ patient oxygenating on room air. Failed RN dysphagia screening. Passed FLOOR CLERK bedside swallow evaluation on 03/19/2020 with recommendation for MBS study to determine presence and/or degree of aspiration. Current Diet Ordered: Minced/moist textures/[place] thick liquids Dentition: Upper Dentures, Lower Dentures Mental Status: WNL Respiratory Status: Oxygenating on Room Air - Study Findings Consistencies: Thin Liquid, [place] Thick Liquid, Honey Thick Liquid, Pudding, Cookie - Penetration-Aspiration Scale Penetration-Aspiration Scale: OBJECTIVE ASSESSMENT OF SWALLOW FUNCTION (QUANTITATIVE ? PER TRIAL): PENETRATION / ASPIRATION SCALE ([place]): 1 = does not enter airway 2 = enters airway/above vocal folds/ejected 3 = enters airway/above vocal folds/not ejected 4 = enters airway/contacts vocal folds/ejected 5 = enters airway/contacts vocal folds/not ejected 6 = enters airway/below vocal folds/ejected 7 = enters airway/below vocal folds/not ejected despite effort 8 = enters airway/below vocal folds/no effort - Penetration-Aspiration Scale Score Thin Liquid via teaspoon Result: 1= does not enter airway Thin Liquid via teaspoon Trial 2 Result: 1= does not enter airway Thin Liquid via sequential sips from cup Result: 4= enters airway/contacts vocal folds/ejected [place] Thick Liquid via large single sip from cup Result: 2= enter airway/above vocal folds/ejected Honey Thick Liquid via large single sip from cup Result: 1= does not enter airway Pudding Result: 1= does not enter airway Cookie Result: 1= does not enter airway Thin Liquid via sequential sips from straw Result: 1= does not enter airway Thin Liquid via small single sip from cup Result: 2= enter airway/above vocal folds/ejected - Oral Phase Labial Seal: No Labial Escape Tongue Control During Bolus Hold: Posterior escape of less than half of bolus Bolus Preparation/Mastication: Disorganized chewing/mashing with solid pieces of bolus unchewed Bolus Transport/Lingual Motion: Slowed tongue motion Oral Residue: Residue collection on oral structures - Pharyngeal Phase Initiation of Pharyngeal Swallow: Bolus head in valleculae Soft Palate Elevation: No bolus between soft palate and pharyngeal wall Laryngeal Elevation: Partial superior movement thyroid cart/partial apprx aryt-epig petiole Anterior Hyoid Excursion: Partial anterior movement Epiglottic Movement: Partial inversion Laryngeal Vestibule Closure at Height of Swallow: Incomplete; narrow column of air/contrast in laryngeal vestibule Pharyngeal Stripping Wave: Present - complete Pharyngoesophageal Segment Opening: Parital distension and partial duration; parital obstruction of flow Tongue Base Retraction: Narrow column of contrast between tongue base & post. pharyngeal wall Pharyngeal Residue: Trace residue within or on pharyngeal structures - Diagnosis/Impression Diagnosis: mild-moderate oropharyngeal dysphagia (R13.12) Impression: The patient trialed thin liquid barium via teaspoon, cup, and via straw. Patient tolerated thin consistencies better when taking single small sips. Patient found to have penetration fo thin liquid barium to the vocal cords with ejection when taking sequential sips from the cup. The patient had timely mastication although disorganized in nature. No aspiration was found during this assessment. It is recommended patient continue with skilled ST intervention at next level of care and to follow up with her primary care physician regarding changes in swallow function. - Recommendations Diet: Mechanical Soft Textures, Thin Liquids Compensatory Strategies: Small Bites, Small Sips, Slow Rate, Sitting upright, Remain sitting upright for 30 minutes after PO intake Supervision: 1:1 Close Supervision Recommend Repeat Modified Barium Swallow: TBD Need for Skilled Speech Therapy Services: Yes Education Completed: 1. Described result of evaluation., 2. Pt understands evaluation & agrees with goals and treatment plan., 7. Pt requires further education on strategies & risks. - Status Active ST Patient: Active - Contact Information [facility] Speech Therapy:: Janet Correa MA, CCC-FLOOR CLERK [address] [place] [address] [email or web address] [phone]
--- NOTE | 2020-03-21 16:20 | NURSING ---
spoke with patients granddaughter Franchesca about discharges plan/instructions. She verbalized understanding and all questions were answered. She will be here to tack picker patient at 1730.
[2020-03-21 16:31] LABS: Bedside Glucose 89 mg/dL (70-110)
== END 2020-03-21 17:49 | disposition home or self-care (01) | DRG 65 ==
LOC: ED 16:36 → PCU 19:29
PROVIDERS: Admitting Provider Hospitalist; Emergency Provider Emergency Medicine; PCP Student in an Organized Health Care Education/Training Program; Visit Provider Student in an Organized Health Care Education/Training Program
DX: I63.233 Cerebral infarction due to unspecified occlusion or stenosis of bilateral carotid arteries (principal); G81.91 Hemiplegia, unspecified affecting right dominant side; R47.01 Aphasia; R29.810 Facial weakness; R29.704 NIHSS score 4; I10 Essential (primary) hypertension; D64.9 Anemia, unspecified; N28.9 Disorder of kidney and ureter, unspecified; R73.9 Hyperglycemia, unspecified; F03.90 Unspecified dementia, unspecified severity, without behavioral disturbance, psychotic disturbance, mood disturbance, and anxiety; F32.9 Major depressive disorder, single episode, unspecified; Z66 Do not resuscitate; Z91.041 Radiographic dye allergy status; Z79.82 Long term (current) use of aspirin; Z79.899 Other long term (current) drug therapy; Z87.891 Personal history of nicotine dependence; Z23 Encounter for immunization
CPT/HCPCS: 36415; 70450; 70496; 70498; 70551; 71045; 74230; 80048; 80061; 81001; 82274; 82962; 83036; 84484; 85025; 85610; 85730; 92526; 92610; 92611; 93005; 93306; 93880; 94762; 97162; 97166; 97530; 97535; 97802; 99285; G0008; J7030; Q9967; 90686; A4216

== ENCOUNTER 2020-04-04 13:00 | Observation (INO) | payer MEDICARE, SELFPAY ==
[2020-03-21 13:36] VITALS: BMI 23.5
[2020-04-04] VITALS (15 sets, daily range): BP systolic 123–148; BP diastolic 55–85; PULSE 51–70; RESP 13–22; TEMP 36.2–36.5; O2SAT 97–100; BMI 24.3; BMI 24.5; BMI 22.9
--- NOTE | 2020-04-04 13:01 | EKG12_ITS ---
Test Reason : NEURO Blood Pressure : / mmHG Vent. Rate : 072 BPM Atrial Rate : 072 BPM P-R Int : 256 ms QRS Dur : 086 ms QT Int : 424 ms P-R-T Axes : 050 027 062 degrees QTc Int : 464 ms Sinus rhythm with 1st degree A-V block with Premature atrial complexes Nonspecific T wave abnormality Abnormal ECG Confirmed by LEEROY PAPPAS, KENYATTA ([id number]), editor greeting card HEDY SOTELO ([id number]) on 04/05/2020 10:52:41 AM Referred By: KARLA Confirmed By:KENYATTA UMAÑA MD
--- NOTE | 2020-04-04 13:01 | CT_ITS ---
STUDY: CT HEAD STROKE PROTOCOL W/O CONTRAST INJECTION REASON FOR EXAM: Female, 84 years old. STROKE BRIAN BRAD RADIATION DOSAGE (If Supplied By Facility): CTDIvol = ( 44.99 ) mGy, DLP = ( 745.49 ) mGycm TECHNIQUE: Transaxial CT imaging of the brain was performed without administration of intravenous contrast material. Individualized dose optimization techniques were used for this CT. COMPARISON: Comparison is made with prior study dated 03/18/2020. FINDINGS: Normal soft tissue structures. Normal calvarium. There is mild cerebral atrophy with widening of the extra-axial spaces and ventricular dilatation. There are areas of decreased attenuation within the white matter tracts of the supratentorial brain, consistent with microvascular disease changes. Stable encephalomalacia in the right temporal parietal lobes with the ipsilateral dilatation of the right trigone. Normal basal ganglia and thalami. Normal brainstem. Normal cerebellum. There is no intracranial hemorrhage. There are no findings of an acute ischemic infarction. Partial maxillary sinus surgery. Residual mucosal thickening of both maxillary sinuses. Mild degree of mucosal thickening of the ethmoid sinuses. CT/STROKE Brain/Head without Cont IMPRESSION: Chronic involutional changes of the brain. N.B. : The above information has been verbally conveyed by Joby Black to Dr Bindu DO on 04/04/2020 13:19:54 (ET). Electronically Signed: Joby Black, at 13:21 EST , Service support ,
--- NOTE | 2020-04-04 13:01 | RAD_ITS ---
STUDY: X-RAY CHEST REASON FOR EXAM: Female, 84 years old. PT was unresponsive for a few minutes at 1205. On [address] to hospital pt had expressive aphasia from [id number] and right sided weakness. TECHNIQUE: Single AP portable view of the chest. COMPARISON: Comparison is made with prior study dated 03/18/2020. FINDINGS: EKG electrodes are seen. Hyperinflation. The lungs are clear. There is no demonstrated pleural abnormality. There is borderline cardiomegaly. Normal mediastinum and cassy. Normal visualized pulmonary arteries. There is atherosclerotic calcification of the aortic arch with tortuosity. There are degenerative changes of the visualized thoracic spine. There is degenerative osteoarthritis of the bilateral shoulders. There is no demonstrated abnormality of the visualized soft tissue structures of the upper abdomen. RAD/Chest 1 View IMPRESSION: Borderline cardiomegaly. Electronically Signed: Joby Black, at 13:54 EST , Service support ,
--- NOTE | 2020-04-04 13:04 | ED.VISSUMM ---
- ER Visit Summary Date of Service: 04/04/20 Chief Complaint: [Mental status change and concern for stroke] History of Present Illness: The patient is a 84 F [presents to the emergency department via EMS from home. Patient was with her granddaughter and was sitting watching television when she became unresponsive. Patient apparently was drooling and not responding to her granddaughter. EMS noted a right-sided facial droop and aphasia and weakness of the right arm at approximately 1242. Her aphasia resolved around 1247 per EMS and she started talking to them. Patient has history of stroke recently on March 18. Patient did not receive TPA on March 18. The granddaughter states that they just had a visit yesterday with vascular surgeon regarding stenosis of her right carotid artery. Patient was going to continue medical management and have cardiology clear her for possible surgical intervention on her carotid artery. Patient currently on Plavix and aspirin. On arrival patient has no complaints. Patient has history of depression, dementia, hypertension, and prior stroke.] Physical Examination: [HEENT-PERRLA, EOMI. Cranial nerves II through XII grossly intact. TMs clear. Mucous membranes moist. No adenopathy. Cardiovascular-regular rate and rhythm without murmur or ectopy Lungs-clear to auscultation, chest wall stable without crepitus or subcu emphysema Abdomen-normoactive bowel sounds, soft, nontender, no rebound or rigidity, no peritoneal signs. Neuro exam-patient has right upper extremity weakness and that she has a hard time lifting it off over her body however she is able to squeeze my hand with her hand. She was noted to have a subtle right-sided facial droop. I gave her an NIH stroke scale of 3 here. Extremities-intact ?4, normal range of motion, normal pulses, atraumatic] Test Results: [EKG obtained arrival shows sinus rhythm with a ventricular rate of [address] changes. CBC with differential showed a white count 7.7, hemoglobin 9.1, hematocrit 30, placed 302. Chemistries unremarkable. INR 1.2. Troponin less than 0.015. CT scan of the brain without contrast showed no acute hemorrhage and some chronic age-related changes. CTA of the head and neck showed plaques at origins of bilateral right and left internal carotid arteries measuring more than 70%.] Emergency Department Course and Treatment: [On arrival patient placed on air sampling and monitoring. Patient was discussed with stroke neurologist from [facility]. Patient symptoms have returned to her baseline and her deficits have essentially resolved. She is not a TPA candidate. Etiology of her syncopal episode is unclear and the differential would be cardiac etiology versus seizure versus other.] Treatment Plan: [Admit] Disposition: [Admit] Impression: [Syncope TIA versus CVA] This note was generated with Cell[employer] dictation software. It may contain incorrect words, spelling, and punctuation that were not noted in review of the chart prior to signing ED Disposition - Plan for ED Patient: Referrals: Josie Snyder MD [Primary Care Provider] -
--- NOTE | 2020-04-04 13:05 | CM.ED ---
SOCIAL WORK Stroke Alert Responded to Stroke Alert. Dr. Lau in with patient. This worker to remain available. Sukumar Alanis, OPERATING ENGINEER, ACTU[employer]IAL [employer]NS[employer]IP
[2020-04-04] MEDS: 0.9% Normal Saline 1,000 ML 100 ML IV (13:15)
[2020-04-04 13:23] LABS: Absolute Neutrophil Count 5.1 X10^3/uL (2.0-7.7); Basophil# 0.04 X10^3/uL; Basophil% 0.5 % (0-1); Eosinophil# 0.17 X10^3/uL; Eosinophils% 2.2 % (0-5); Hematocrit 29.7 % (37-47); Hemoglobin 9.1 g/dL (12.0-15.0); Lymphocyte % 19.5 % (19-41); Mean Corp Hgb Conc 30.6 g/dL (32-36); Mean Corpuscular Hgb 29.8 pg (27.0-32.0); Mean Corpuscular Volume 97.4 fL (81-99); Mean Platelet Vol. 10.2 fl (6.2-12.0); Monocyte# 0.89 X10^3/uL; Monocyte% 11.6 % (0-10); NRBC Flagged by Analyzer 0 % (0-5); Neutrophil # 5.05 X10^3/uL (2.7-7.7); Neutrophil % 65.7 % (47-70); Platelet Count 302 K/mm3 (150-450); RBC Distribution Width CV 13.5 % (11.6-14.6); RBC Distribution Width SD 48.2 fl (35.1-43.9); Red Blood Count 3.05 M/mm3 (4.2-5.4); White Blood Count 7.7 K/mm3 (4.4-11.0)
[2020-04-04 13:31] LABS: International Normalized Ratio 1.2; Prothrombin Time (Protime)PT. 15.2 SECONDS (11.7-14.9)
[2020-04-04 13:32] LABS: Partial Thromboplast Time 22.6 Seconds (24.1-36.2)
[2020-04-04 13:35] LABS: Anion Gap 2 (5-15); BUN 24 mg/dL (7-18); BUN/Creat Ratio 22.6 RATIO (10-20); Calcium,Total 8.9 mg/dL (8.5-10.1); Chloride 112 mmol/L (98-107); Creatinine, Serum 1.06 mg/dL (0.55-1.02); EST Glomerular Filtration Rate 53 mL/min (>60); Est Glom Filt Rate - Afr Amer 64 mL/min (>60); Estimated Creatinine Clearance 39.11 ml/min; Glucose 159 mg/dL (74-106); Potassium 3.7 mmol/L (3.5-5.1); Sodium Level 144 mmol/L (136-145)
--- NOTE | 2020-04-04 13:53 | CT_ITS ---
STUDY: CTA HEAD AND NECK WITH CONTRAST REASON FOR EXAM: Female, 84 years old. Acute neurologic deficit, CVA RADIATION DOSAGE (If Supplied By Facility): CTDIvol = ( 19.94 ) mGy, DLP = ( 556.61 ) mGycm TECHNIQUE: CT angiography was performed with a multi-detector CT scanner. Data acquisition was obtained from the skull base through the vertex following intravenous administration of IV 100mL [id number]-[id number]. MIP images were reconstructed from the axial data set. Post-processing of the angiographic images was performed, with multiplanar reformation and 3D reconstruction. Individualized dose optimization techniques were used for this CT. COMPARISON: No relevant priors. FINDINGS: Normal bilateral petrous carotid arteries. There is calcified plaque formation of the right cavernous carotid artery, without a cross-sectional luminal stenosis. There is calcified plaque formation of the left cavernous carotid artery, without a cross-sectional luminal stenosis. Normal right A1 segments of the anterior cerebral artery. Normal left A1 segments of the anterior cerebral artery. Normal intact anterior communicating artery (ACOM). Normal bilateral A2 segments of the anterior cerebral arteries. Normal right M1 and M2 segments of the middle cerebral arteries, with a normal M1 bifurcation. Normal left M1 and M2 segments of the middle cerebral arteries, with a normal M1 bifurcation. Normal right posterior communicating artery (PCOM). Normal left posterior communicating artery (PCOM). Normal bilateral vertebral arteries. Normal basilar artery with a normal basilar bifurcation. The visualized bilateral superior cerebellar (SCA) arteries are normal. Normal bilateral P1, P2 and visualized P3 segments of the posterior cerebral arteries. There is no demonstrated aneurysm of the [place]. AORTIC ARCH: There is atherosclerotic calcific plaque formation of the aortic arch and great vessels arising from the aortic arch, without a hemodynamically significant stenosis. There is a normal origin of the brachiocephalic, left common carotid, and left subclavian arteries. RIGHT CAROTID ARTERIES: Normal right common carotid artery (CCA). Normal right common carotid bulb. There is extensive atherosclerotic plaque formation of the origin of the right internal carotid artery with an estimated stenosis of greater than 70%. Normal visualized cervical portion of the right internal carotid artery. Normal origin of the right external carotid artery (ECA). LEFT CAROTID ARTERIES: Normal left common carotid artery (CCA). Normal left common carotid bulb. There is extensive atherosclerotic plaque formation of the origin of the left internal carotid artery with an estimated stenosis of greater than 70%. Normal visualized cervical portion of the left internal carotid artery. Normal origin of the left external carotid artery (ECA). VERTEBRAL ARTERIES: Normal bilateral vertebral arteries. CT/CTA Head AND Neck W/ Contrast IMPRESSION: Atherosclerotic plaques at the origins of both the right and left internal carotid arteries causing greater than 70% luminal narrowing. Electronically Signed: Joby Black, at 14:50 EST , Service support ,
--- NOTE | 2020-04-04 14:50 | CHAPLAIN ---
Type of Pastoral Visit ___ Initial Visit ___ Follow-up Visit ___ On-call Visit ___ General Patient Visit ___ Spiritual Assessment ___ Family Conference ___ Bereavement _x__ Rapid Response ___ Code Blue ___ Other (describe below) Pastoral Care Referral From ___ Patient ___ Family ___ Nurse ___ Physician ___ V Belt Inspector ___ Dental Practitioner _x__ Other (describe below) Sacrament/Intervention ___ Active listening ___ Anointing ___ Christian ___ Bereavement ___ Communion ___ Bertha exploration ___ ___ Life review ___ Prayer ___ Reconciliation ___ Sacrament of Sick _x__ Supportive presence ___ Wedding ___ Other (describe below) Pastoral Comments patient was taken to CT scan; family member that arrived with patient and was going to leave was available for a few minutes; offered support; family states pt is having ongoing health needs but nothing needed at this time
[2020-04-04 15:11] LABS: Bacteria 0 SEEN /hpf (None Seen); Mucous, Urine 0 SEEN /hpf (<or=2+); Squamous Epithelial Cells - UA 0 SEEN /hpf (5-10)
[2020-04-04 15:12] LABS: Color, Urine Yellow (Yellow); Glucose, Dipstick Normal (Normal); Ketone-Dipstick 5 mg/dl (Negative); Leukocyte Esterase-Dipstick Negative /ul (Negative); Nitrite-Dipstick Negative (Negative); Occult Blood-Urine 10 /ul (Negative); Protein-Dipstick Negative (Negative); Specific Gravity, Urine 1.015 (1.002-1.030); Urine Bilirubin Dipstick Negative (Negative); Urine Clarity Clear (Clear); Urine Urobilinogen Normal (Normal)
[2020-04-04 15:54] LABS: Red Blood Cells-Urine 0-5 SEEN /hpf (0-5); White Blood Cells 0-5 SEEN /hpf (0-5)
--- NOTE | 2020-04-04 16:26 | PCM.HP.STD ---
History of Present Illness Date of Admission: 04/04/20 Chief Complaint: altered mental status, stroke like symptoms The patient is a 84 year old F with a past medical history as outlined who was admitted through the ED on 04/04/2020 with a complaint of strokelike symptoms. History was mainly gotten from ED doctor who spoke to patient's granddaughter as patient could not give much of a history. Patient just told me that she was here to get some labs done. However per ED documentation and speaking to the ED doctor, patient was with her granddaughter who is her primary caregiver. She was watching TV when she suddenly became unresponsive. Granddaughter noticed that she was drooling and EMS on arrival noted a right-sided facial droop as well as aphasia and weakness of the right arm at approximately 1242. The symptoms subsequently resolved after about 5 minutes and patient became communicative. Patient came in with a stroke on March 18 and was not deemed a candidate for TPA. She was noted to have carotid artery stenosis on the right side and was seen by vascular surgery was in hospital. She also had outpatient vascular surgery on the day before admission and per granddaughter, plan was for her to have medical management and also to have cardiology evaluation for cardiac preop clearance for possible surgical intervention on her right carotid artery. Patient has been compliant with her aspirin and Plavix. Review of symptoms otherwise negative. D, vitals showed temperature of 97.2, blood pressure 140/56, pulse rate of 70 and respiratory of 18. Pulse ox was 98% on room air. Chemistry showed creatinine of 1.06 and sodium of 144 as well as initial troponin of less than 0.015. CBC showed hemoglobin of 9.1 with platelets of 302 and WBC of 7.7. Chest x-ray showed borderline cardiomegaly and CT of the brain showed chronic involutional changes. CTA of the head and neck showed atherosclerotic plaques at the origins of both left and right internal carotid arteries causing greater than 70% luminal narrowing. EKG showed no acute ST changes. Patient has been admitted to be managed for TIA to rule out a stroke. [] Past Medical History Past Medical History (Chronic Problems): Chronic Problems Depression (Chronic) Dementia (Chronic) Hypertension (Chronic) Allergies No Known Allergies Allergy (Verified 04/04/20 13:13) Home Medications: Ambulatory Orders Medication Instructions Recorded Amlodipine [Norvasc] 10 mg PO DAILY 03/18/20 Aspirin 81 mg PO DAILY 03/18/20 Bupropion HCl [Zyban] 150 mg PO DAILY 03/18/20 Cholecalciferol (Vitamin D3) 50 mcg PO DAILY 03/18/20 [Vitamin D3] Cyanocobalamin (Vitamin B-12) 2,500 mcg PO DAILY 03/18/20 [Vitamin B12] Donepezil HCl 5 mg PO DAILY 03/18/20 Ferrous Sulfate [Ferosul] 325 mg PO DAILY 03/18/20 Magnesium Chloride [Slow-Mag] 71.5 mg PO DAILY 03/18/20 Atorvastatin Calcium 40 mg PO QHS #30 tab 03/21/20 Clopidogrel Bisulfate [Plavix] 75 mg PO DAILY #30 tab 03/21/20 Calcium (Elemental) [Os-Shayan 500] 500 mg PO DAILY 04/04/20 Citalopram [Celexa] 20 mg PO DAILY 04/04/20 Lactobacillus Acidophilus 1 cap PO DAILY 04/04/20 [Probiotic] Losartan Potassium 100 mg PO DAILY 04/04/20 Metoprolol Succinate 25 mg PO QHS 04/04/20 Surgical History: noncontributory Psychiatric History: Depression 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 Denies: Malaise, Weakness, Weight Change Eyes: Denies: Blurred vision HEENT: Denies: Head Aches, Sinus Congestion, Sinus Drainage Cardiovascular: Denies: Chest Pain, Palpitations Respiratory: Denies: Cough, Shortness of Breath, Shortness of breath at rest, Sputum production Gastrointestinal: Denies: Abdominal Pain, Nausea, Vomiting Genitourinary: Denies: Dysuria Musculoskeletal: Denies: Joint Pain, Joint Tenderness Skin: Denies: Rash, Wounds Neurological: Denies: Slurred speech, Confusion, Focal weakness, Numbness, Tingling Psychiatric: Denies: Anxiety, Depression, Homicidal Ideations, Suicidal Ideations Hematologic/ Lymphatic: Denies: Easy Bruising, Easy Bleeding VTE Information - Inpt Only VTE Present on Admission: No VTE Pharm Prophylaxis ordered?: Yes - Physical Exam Vitals/I&O's: Vital Signs Temp Pulse Resp BP Pulse Ox 97.2 F L 70 18 140/56 H 98 04/04/20 16:15 04/04/20 16:15 04/04/20 16:15 04/04/20 16:15 04/04/20 16:15 Oxygen Delivery Method Room Air Weight: 146 lb 9.718 oz Body Mass Index (BMI) 22.9 Finger Stick Blood Glucose 203 Intake and Output for Last 24 Hours 04/02/20 04/03/20 04/04/20 23:59 23:59 23:59 Intake Total 310 / 310 Balance 310 / 310 General: Alert, Cooperative, No apparent distress, Confused, Disoriented HEENT: Atraumatic, PERRLA, EOMI, Normocephalic Oral: Dry Mucosa Neck: Supple, No JVD, Negative Carotid Bruits Lungs: Clear to auscultation, Normal air movement, No rhonchi, No wheeze, No rales Cardiovascular: Regular rate, Regular Rhythm, Normal S1, Normal S2, No murmurs Abdomen: Bowel Sounds Present, Soft, Non Tender, Non-Distended, No Hepato-splenomegaly Extremities: No clubbing, No cyanosis, No edema, Capillary Refill Less than 3 Seconds Skin: No rashes, No breakdown Musculoskeletal: No Tenderness to Palpation of Joints or Extremities Lymphatic: No Cervical, Supraclavicular, or Inguinal Adenopathy Neurological: Cranial nerves II-XII grossly intact, Neuro grossly intact, Motor Exam 5/5 strength throughout, - - NIHSS is 0 Psych/Mental Status: Normal Affect, Appropriate Laboratory Results 04/04/20 13:10: WBC 7.7, RBC 3.05 L, Hgb 9.1 L, Hct 29.7 L, MCV 97.4, MCH 29.8, MCHC 30.6 L, RDW Std Deviation 48.2 H, RDW Coeff of Andrew 13.5, Plt Count 302, MPV 10.2, Immature Gran % (Auto) 0.500, Neut % (Auto) 65.7, Lymph % (Auto) 19.5, Lyman % (Auto) 11.6 H, Eos % (Auto) 2.2, Baso % (Auto) 0.5, Absolute Neuts (auto) 5.1, Absolute Lymphs (auto) 1.50, Nucleated RBC % 0 04/04/20 13:10: PT 15.2 H, INR 1.2, APTT 22.6 L 04/04/20 13:10: Sodium 144, Potassium 3.7, Chloride 112 H, Carbon Dioxide 30.0, Anion Gap 2 L, BUN 24 H, Creatinine 1.06 H, Estim Creat Clear Calc 39.11, Est GFR (MDRD) Af Amer 64, Est GFR (MDRD) Non-Af 53 L, BUN/Creatinine Ratio 22.6 H, Glucose 159 H, Calcium 8.9, Troponin I < 0.015 04/04/20 15:05: Urine Color Yellow, Urine Clarity Clear, Urine pH 5.0, Ur Specific Pierpont 1.015, Urine Protein Negative, Urine Glucose (UA) Normal, Urine Ketones 5 H, Urine Occult Blood 10 H, Urine Nitrite Negative, Urine Bilirubin Negative, Urine Urobilinogen Normal, Ur Leukocyte Esterase Negative, Urine RBC 0-5 SEEN, Urine WBC 0-5 SEEN, Ur Squamous Epith Cells 0 SEEN, Urine Bacteria 0 SEEN, Urine Mucus 0 SEEN Diagnostic Data Brain CT 04/04/20 13:01 IMPRESSION: Chronic involutional changes of the brain. N.B. : The above information has been verbally conveyed by Joby Black to Dr Bindu DO, on 04/04/2020 13:19:54 (ET). Electronically Signed: Joby Black, at 13:21 EST , Service support , ADDENDUM: 04/04/20 1328 IMPRESSION: Chronic involutional changes of the brain. N.B. : The above information has been verbally conveyed by Joby Black to Dr Bindu DO, on 04/04/2020 13:19:54 (ET). Electronically Signed: Joby Black, at 13:21 EST , Service support , Chest X-Ray 04/04/20 13:01 IMPRESSION: Borderline cardiomegaly. Electronically Signed: Joby Black, at 13:54 EST , Service support , Head/Neck CTA 04/04/20 13:53 IMPRESSION: Atherosclerotic plaques at the origins of both the right and left internal carotid arteries causing greater than 70% luminal narrowing. Electronically Signed: Joby Black, at 14:50 EST , Service support , Current Medications Sodium Chloride () 1,000 mls @ 100 mls/hr IV .Q10H ONE Stop: 04/04/20 23:00 Last Infusion: 04/04/20 16:21 Dose: Infused Documented by: Labetalol HCl (Labetalol (Prefilled) 20 Mg/4 Ml) 20 mg IV X1 PRN PRN Reason: BLOOD PRESSURE Sodium Chloride (0.9% Saline Lock 10 Ml Syringe) 10 - 40 ml IV UD PRN PRN Reason: SALINE FLUSH Assessment/Plan All Active Problems CVA (cerebral vascular accident) (Acute) Renal insufficiency (Acute) Weakness of right side of body (Acute) Hyperglycemia (Acute) 84-year-old female admitted with a complaint of strokelike symptoms. # TIA Admit to PCU with telemetry CT of the brain was negative. RI of the brain tomorrow. CT of the head and neck showed bilateral greater than 70% stenosis of the internal carotid arteries. Continue high intensity statin and aspirin as well as Plavix. Consult PT OT. Fall precautions. consult neurology once MRI results are obtained # Hypertension: On Norvasc and losartan as well as metoprolol and Maxide #Anemia: Neck. Hemoglobin is 9.1 which is around her baseline. On oral iron supplementation. #Dementia: opn donepezil # Depression: on celexa DVT prophylaxis: SCDs OBSV E&M: 90877 Initial observation care L2
--- NOTE | 2020-04-04 16:47 | MRI_ITS ---
HISTORY: TIA, SLURRED SPEECHtoday TECHNIQUE: Multiplanar and multisequence MR images of the brain were obtained without contrast. IV Contrast dosage and agent: None. COMPARISON: 03/19/2020 FINDINGS: Number of images including paperwork: 276 PARANASAL SINUSES AND MASTOID AIR CELLS: Complete opacification of left sphenoid sinus and mild mucosal thickening elsewhere. Postoperative changes better seen on previous CT. CALVARIUM: Intact. INTRACRANIAL HEMORRHAGE: No evidence of acute intracranial hemorrhage. BRAIN PARENCHYMA: Areas of restricted diffusion are noted predominantly in the periventricular white matter on the left, slightly different in distribution compared with previous. Multiple areas of white matter signal abnormality. Considering the patient's age, chronic microangiopathic changes are most likely with the differential diagnosis including vasculitis, chronic migraines, and demyelinating disease. Normal sella turcica, pituitary gland, infundibular stalk, and optic chiasm. The internal auditory canals are patent. No mass effect or midline shift. CSF SPACES: Appropriate for age. No hydrocephalus. Patent basal cisterns. VASCULAR SYSTEM: Normal flow voids in the major intracranial circulation. ORBITS: Both globes, extraocular muscles, optic nerves and retrobulbar fat appear unremarkable. SOFT TISSUES: Unremarkable. MRI/Brain without Contrast IMPRESSION: Acute to subacute infarcts in the left periventricular white matter with some additional areas of stephen-infarct ischemia. at 2212 Reported and signed by: Leslie Doshi MD Electronically Signed: Leslie Doshi MD at 22:12 EST Tel , Service support ,
[2020-04-04] MEDS: Metoprolol(XL)Succ 25 MG Tablet PO (21:26)
[2020-04-04] MEDS: Atorvastatin Calcium 40 MG Tablet PO (21:26)
[2020-04-05] VITALS (10 sets, daily range): BP systolic 112–133; BP diastolic 45–62; PULSE 55–77; RESP 16; TEMP 36.6–36.8; O2SAT 95–98; BMI 22.9
[2020-04-05 06:04] LABS: Absolute Lymphocyte Count 1.18 X10^3/uL (0.83-4.51); Absolute Neutrophil Count 5.6 X10^3/uL (2.0-7.7); Basophil# 0.05 X10^3/uL; Basophil% 0.6 % (0-1); Eosinophils% 2.5 % (0-5); Hematocrit 28.7 % (37-47); Hemoglobin 8.7 g/dL (12.0-15.0); Lymphocyte # 1.18 X10^3/ul (4.0); Mean Corp Hgb Conc 30.3 g/dL (32-36); Mean Corpuscular Hgb 29.3 pg (27.0-32.0); Mean Corpuscular Volume 96.6 fL (81-99); Mean Platelet Vol. 10.9 fl (6.2-12.0); Monocyte% 10.1 % (0-10); NRBC Flagged by Analyzer 0 % (0-5); Neutrophil # 5.63 X10^3/uL (2.7-7.7); Neutrophil % 71.4 % (47-70); Platelet Count 300 K/mm3 (150-450); RBC Distribution Width CV 13.4 % (11.6-14.6); RBC Distribution Width SD 47.2 fl (35.1-43.9); Red Blood Count 2.97 M/mm3 (4.2-5.4); White Blood Count 7.9 K/mm3 (4.4-11.0)
[2020-04-05 06:33] LABS: Anion Gap 4 (5-15); BUN 17 mg/dL (7-18); BUN/Creat Ratio 20.9 RATIO (10-20); Calcium,Total 9.1 mg/dL (8.5-10.1); Chloride 110 mmol/L (98-107); Cholesterol 99 mg/dL (200); Creatinine, Serum 0.81 mg/dL (0.55-1.02); EST Glomerular Filtration Rate 71 mL/min (>60); Est Glom Filt Rate - Afr Amer 86 mL/min (>60); Estimated Creatinine Clearance 51.17 ml/min; Glucose 87 mg/dL (74-106); High Density Lipoprotein 41 mg/dL; Potassium 3.7 mmol/L (3.5-5.1); Sodium Level 143 mmol/L (136-145); Triglycerides 90 mg/dL; Very Low Density Lipoprotein 18 mg/dL (5-40)
[2020-04-05] MEDS: Ferrous Sulfate 325 MG Tablet PO (09:05)
[2020-04-05] MEDS: Aspirin 81 MG TAB.CHEW PO (09:05)
[2020-04-05] MEDS: Calcium (Elemental) 500 MG Tablet PO (09:05)
[2020-04-05] MEDS: Citalopram 20 MG Tablet PO (09:05)
[2020-04-05] MEDS: Donepezil HCl 5 MG Tablet PO (09:06)
[2020-04-05] MEDS: buPROPion (XL) 150 MG TABLET.XL PO (09:06)
[2020-04-05] MEDS: Clopidogrel Bisulfate 75 MG Tablet PO (09:06)
[2020-04-05] MEDS: Enoxaparin 40 MG/0.4 ML Syringe SC (09:06)
--- NOTE | 2020-04-05 09:45 | CASEMGMT ---
Call to [facility] and pt is still active with them for SN, PT, SW. [facility] to be notified of pt discharge date/time and if pt status changes to inpt, pt will need MATTHEW order placed/faxed. CM to follow. eGn SU CM
--- NOTE | 2020-04-05 13:12 | PCM.DC ---
You will use the following diet at home:: Regular Your food should be the consistency of: Regular Discharge Activity: May Not Drive Weight Bearing Status: Weight bearing as tolerated Call your doctor if you observe: Fever of 101 or Higher, Coldness, Increased Pain, Numbness or Tingling, Change in Color, Inability to urinate, Inability to have a bowel movement, Using more than one pad per hour, Shortness of breath, Dizziness, Fainting spells, Swelling in the ankles, Chest pain, Prolonged hiccoughing, Increased palpitations (irregular heartbeat), Uncontrolled pain Additional Instructions: Telemetry neurologist recommendation followed. Plavix changed to Brilinta. 30-day event monitor approved by Dr. López. Follow-up with Dr. Bliss Allergies/Adverse Reactions: Allergies No Known Allergies Allergy (Verified 04/04/20 13:13) Medications to take at Discharge Amlodipine [Norvasc] 10 mg PO DAILY 03/18/20 Aspirin 81 mg PO DAILY 03/18/20 Bupropion HCl [Zyban] 150 mg PO DAILY 03/18/20 Cholecalciferol (Vitamin D3) [Vitamin D3] 50 mcg PO DAILY 03/18/20 Cyanocobalamin (Vitamin B-12) [Vitamin B12] 2,500 mcg PO DAILY 03/18/20 Donepezil HCl 5 mg PO DAILY 03/18/20 Ferrous Sulfate [Ferosul] 325 mg PO DAILY 03/18/20 Magnesium Chloride [Slow-Mag] 71.5 mg PO DAILY 03/18/20 Calcium (Elemental) [Os-Shayan 500] 500 mg PO DAILY 04/04/20 Citalopram [Celexa] 20 mg PO DAILY 04/04/20 Lactobacillus Acidophilus [Probiotic] 1 cap PO DAILY 04/04/20 Losartan Potassium 100 mg PO DAILY 04/04/20 Metoprolol Succinate 25 mg PO QHS 04/04/20 Atorvastatin Calcium 80 mg PO QHS #30 tab 04/05/20 Ticagrelor [Brilinta] 90 mg PO BID #60 tab 04/05/20 The following prescriptions were given: Atorvastatin Calcium 80 mg PO QHS #30 tab Transmission Status: [id number] Ticagrelor [Brilinta] 90 mg PO BID #60 tab Transmission Status: Pending to [id number] Orders to be completed after discharge: 30 Day Event [employer] [[facility]] Location: None Selected Primary Care Physician: Josie Snyder MD [Primary Care Provider] - Please follow up with your Primary Care Physician in: in 2 weeks Test Results: Test results from this visit will be discussed in further detail at your follow-up appointment, if applicable. Please Follow Up With: Maurilio Bliss MD When: in 1-2 weeks for bilateral carotid stenosis Please Follow Up With: Reji Walton MD When: For recurrent stroke
--- NOTE | 2020-04-05 13:24 | DS.PCM_ITS ---
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 CTA of head and neck at that time showed right cavernous artery calcified plaque with a stenosis 50 to 75%, calcified plaque less than 50% left cavernous carotid artery and extensive atherosclerotic plaque formation at the origin of left ICA with estimated stenosis more than 70%. Patient's granddaughter noticed unresponsiveness and EMS noticed right facial droop, mild aphasia which got resolved by the time patient came to ER. As per H&P, NIH stroke scale 0. Patient was further admitted in PCU. On manager monitoring sinus arrhythmia. MRI brain reported acute to subacute infarct in left periventricular white matter with stephen-infarct ischemia; possible new stroke on previous stroke of 03/18 or residual stroke from 03/18 stroke as per the neurologist. CT head and neck shows bilateral atherosclerotic plaque at origin of ICA more than 70%. [facility] neurology saw the patient and requested vascular surgery consult. Patient had already seen Dr. Bliss 2 days ago on 04/03/2020. I personally talked to him. He recommended left carotid endarterectomy which patient caregiver agreed. Patient needs cardiology clearance and further follow-up with Dr. Bliss. [facility] neurologist further recommended 30-day event monitor, changing Plavix to Brilinta and control of blood pressure and glucose as per stroke guidelines. Patient seen by PT OT and speech evaluation and recommended mechanical soft texture with thin liquid food. PT and OT and speech therapy recommended no need for skilled therapy or SNF. This was discussed with the patient's granddaughter who is the caregiver. She agreed for taking patient to home with home health therapy. Serial troponins negative. Lipid profile shows LDL 40, HDL 41. Recent A1c 5.6% on 03/18. Recent echo on 03/18 is reported below Interpretation Summary Left ventricular systolic function is normal. The estimated ejection fraction is 65 %. The left atrium is moderately enlarged. The right atrium is mildly enlarged. There is mild mitral annular calcification. Anterior leaflet diffuse mitral valve thickening. Mild (1+) eccentric mitral valve insufficiency. Mild tricuspid valve insufficiency. Right ventricular systolic pressure estimated to be 22 mmHg. There is evidence of diastolic dysfunction. Bubble contrast study negative for right to left interatrial shunt. Other comorbidities include hypertension, dyslipidemia, chronic normocytic normochromic anemia/anemia of chronic disease and dementia/depression. Discharge medication reconciliation done. Discharge follow-up instructions completed. Discharge process discussed with the patient and all questions were answered to patient's satisfaction. Aspirin was changed to Brilinta 90 mg p.o. twice daily. Atorvastatin increased to 80 mg daily. 30-day event monitor and approved by Dr. López. Discharge plan discussed with the patient's granddaughter. Total time spent, exact 35 minutes on discharge meds reconciliation, examination, coordination of care with nurses and ancillary staff, review of imaging and blood test and discussion with the patient on follow-up instructions Objective: Seen and examined. Patient was admitted on 03/18/2007/06/2019 with left periventricular white matter infarct. Patient was discharged on aspirin, Plavix and high intensity statin. This time she is admitted with altered mental status as he was found unresponsive by her granddaughter. EMS also noticed right-sided facial droop, mild aphasia and weakness of right arm. Heart rate and blood pressure is controlled. school bus monitor shows sinus arrhythmia. Physical exam General: Alert, Oriented x3, Cooperative. Mild cognitive deficit HEENT: Atraumatic, PERRLA, EOMI, Normocephalic Oral: No Gingival or Mucosal Lesions/ Ulcerations Neck: Supple, No JVD, Negative Carotid Bruits Lungs: Air entry diminished in bilateral lung bases. No crepitation/rhonchi Cardiovascular: Regular rate, Regular Rhythm, Normal S1, Normal S2, No murmurs Abdomen: Bowel Sounds Present, Soft, Non Tender, Non-Distended : No renal angle tenderness. No suprapubic tenderness. Extremities: No edema, Capillary Refill Less than 3 Seconds Skin: No rashes, No breakdown Musculoskeletal: No Tenderness to Palpation of Joints or Extremities Neurological: No facial droop. Cranial nerves II-XII grossly intact, Deep Tendon Reflexes 2+/4. Motor strength 5/5 at major joints. NIH stroke scale 0. Psych/Mental Status: Normal Affect, Appropriate. - Physical Exam Vitals/I&O's: Vital Signs Temp Pulse Resp BP Pulse Ox 97.9 F 65 16 124/48 H 96 04/05/20 13:00 04/05/20 13:00 04/05/20 13:00 04/05/20 13:00 04/05/20 13:00 Oxygen Delivery Method Room Air Weight: 146 lb 9.718 oz Body Mass Index (BMI) 22.9 Finger Stick Blood Glucose 203 Intake and Output for Last 24 Hours 04/03/20 04/04/20 04/05/20 23:59 23:59 23:59 Intake Total 510 / 510 400 / 400 Balance 510 / 510 400 / 400 Laboratory Results 04/04/20 13:10: WBC 7.7, RBC 3.05 L, Hgb 9.1 L, Hct 29.7 L, MCV 97.4, MCH 29.8, MCHC 30.6 L, RDW Std Deviation 48.2 H, RDW Coeff of Andrew 13.5, Plt Count 302, MPV 10.2, Immature Gran % (Auto) 0.500, Neut % (Auto) 65.7, Lymph % (Auto) 19.5, [place] % (Auto) 11.6 H, Eos % (Auto) 2.2, Baso % (Auto) 0.5, Absolute Neuts (auto) 5.1, Absolute Lymphs (auto) 1.50, Nucleated RBC % 0 04/04/20 13:10: PT 15.2 H, INR 1.2, APTT 22.6 L 04/04/20 13:10: Sodium 144, Potassium 3.7, Chloride 112 H, Carbon Dioxide 30.0, Anion Gap 2 L, BUN 24 H, Creatinine 1.06 H, Estim Creat Clear Calc 39.11, Est GFR (MDRD) Af Amer 64, Est GFR (MDRD) Non-Af 53 L, BUN/Creatinine Ratio 22.6 H, Glucose 159 H, Calcium 8.9, Troponin I < 0.015 04/04/20 15:05: Urine Color Yellow, Urine Clarity Clear, Urine pH 5.0, Ur Specific [place] 1.015, Urine Protein Negative, Urine Glucose (UA) Normal, Urine Ketones 5 H, Urine Occult Blood 10 H, Urine Nitrite Negative, Urine Bilirubin Negative, Urine Urobilinogen Normal, Ur Leukocyte Esterase Negative, Urine RBC 0-5 SEEN, Urine WBC 0-5 SEEN, Ur Squamous Epith Cells 0 SEEN, Urine Bacteria 0 SEEN, Urine Mucus 0 SEEN 04/04/20 17:25: Troponin I < 0.015 04/05/20 05:20: WBC 7.9, RBC 2.97 L, Hgb 8.7 L, Hct 28.7 L, MCV 96.6, MCH 29.3, MCHC 30.3 L, RDW Std Deviation 47.2 H, RDW Coeff of Andrew 13.4, Plt Count 300, MPV 10.9, Immature Gran % (Auto) 0.400, Neut % (Auto) 71.4 H, Lymph % (Auto) 15.0 L, Sioux % (Auto) 10.1 H, Eos % (Auto) 2.5, Baso % (Auto) 0.6, Absolute Neuts (auto) 5.6, Absolute Lymphs (auto) 1.18, Nucleated RBC % 0 04/05/20 05:20: Sodium 143, Potassium 3.7, Chloride 110 H, Carbon Dioxide 29.0, Anion Gap 4 L, BUN 17, Creatinine 0.81, Estim Creat Clear Calc 51.17, Est GFR (MDRD) Af Amer 86, Est GFR (MDRD) Non-Af 71, BUN/Creatinine Ratio 20.9 H, Glucose 87, Calcium 9.1, Triglycerides 90, Cholesterol 99, LDL Cholesterol 40, VLDL Cholesterol 18, HDL Cholesterol 41 Current Medications Amlodipine Besylate (Amlodipine 10 Mg Tablet) 10 mg PO DAILY [facility] Last Admin: 04/05/20 10:06 Dose: Not Given Documented by: Aspirin (Aspirin 81 Mg Tab.Chew) [facility] Last Admin: 04/05/20 09:05 Dose: 81 mg Documented by: Atorvastatin Calcium (Atorvastatin Calcium 40 Mg Tablet) 40 mg PO QHS [facility] Last Admin: 04/04/20 21:26 Dose: 40 mg Documented by: Bupropion HCl (Bupropion (Xl) 150 Mg Tablet.Xl) 150 mg PO DAILY [facility] Last Admin: 04/05/20 09:06 Dose: 150 mg Documented by: Calcium Carbonate (Calcium (Elemental) 500 Mg Tablet) [facility] Last Admin: 04/05/20 09:05 Dose: 500 mg Documented by: Cholecalciferol (Cholecalciferol (Vit D3) 1,000 Unit (25mcg)) 2,000 unit PO DAILY [facility] Last Admin: 04/05/20 09:05 Dose: 2,000 unit Documented by: Citalopram Hydrobromide (Citalopram 20 Mg Tablet) 20 mg PO DAILY [facility] Last Admin: 04/05/20 09:05 Dose: 20 mg Documented by: Clopidogrel Bisulfate (Clopidogrel Bisulfate 75 Mg Tablet) 75 mg PO DAILY [facility] Last Admin: 04/05/20 09:06 Dose: 75 mg Documented by: Donepezil HCl (Donepezil Hcl 5 Mg Tablet) 5 mg PO DAILY [facility] Last Admin: 04/05/20 09:06 Dose: 5 mg Documented by: Enoxaparin Sodium (Enoxaparin 40 Mg/0.4 Ml Syringe) 40 mg SC DAILY [facility] Last Admin: 04/05/20 09:06 Dose: 40 mg Documented by: Ferrous Sulfate (Ferrous Sulfate 325 Mg Tablet) [facility] Last Admin: 04/05/20 09:05 Dose: 325 mg Documented by: Hydralazine HCl (Hydralazine 20 Mg/Ml Vial) 5 mg IV Q30M PRN PRN Reason: to maintain BP goals Labetalol HCl (Labetalol (Prefilled) 20 Mg/4 Ml) 20 mg IV X1 PRN PRN Reason: BLOOD PRESSURE Labetalol HCl (Labetalol (Prefilled) 20 Mg/4 Ml) 10 - 20 mg IV Q10M PRN PRN PRN Reason: to Maintain BP Goals Lactobacillus Acidophilus (Lactobacillus Acidophilus) 1 tablet PO DAILY [facility] Last Admin: 04/05/20 09:06 Dose: 1 tablet Documented by: Losartan Potassium (Losartan Potassium 100 Mg Tablet) 100 mg PO DAILY [facility] Last Admin: 04/05/20 10:06 Dose: Not Given Documented by: Metoprolol Succinate (Metoprolol(Xl)Succ 25 Mg Tablet) 25 mg PO QHS [facility] Last Admin: 04/04/20 21:26 Dose: 25 mg Documented by: Nitroglycerin (Nitroglycerin (Inpatient Use) 0.4 Mg Tab.Subl) 0.4 mg SUBLINGUAL Q5M PRN PRN Reason: CARDIAC/CHEST PAIN Ondansetron HCl (Ondansetron 4 Mg/2 Ml Vial) 4 mg IV Q8H PRN PRN PRN Reason: NAUSEA/VOMITING Sodium Chloride (0.9% Saline Lock 10 Ml Syringe) 10 - 40 ml IV UD PRN PRN Reason: SALINE FLUSH Discharge Activity: May Not Drive Weight Bearing Status: Weight bearing as tolerated Call your doctor if you observe: Fever of 101 or Higher, Coldness, Increased Pain, Numbness or Tingling, Change in Color, Inability to urinate, Inability to have a bowel movement, Using more than one pad per hour, Shortness of breath, Dizziness, Fainting spells, Swelling in the ankles, Chest pain, Prolonged hiccoughing, Increased palpitations (irregular heartbeat), Uncontrolled pain Home Medications: Medications to take at Discharge Amlodipine [Norvasc] 10 mg PO DAILY 03/18/20 Aspirin 81 mg PO DAILY 03/18/20 Bupropion HCl [Zyban] 150 mg PO DAILY 03/18/20 Cholecalciferol (Vitamin D3) [Vitamin D3] 50 mcg PO DAILY 03/18/20 Cyanocobalamin (Vitamin B-12) [Vitamin B12] 2,500 mcg PO DAILY 03/18/20 Donepezil HCl 5 mg PO DAILY 03/18/20 Ferrous Sulfate [Ferosul] 325 mg PO DAILY 03/18/20 Magnesium Chloride [Slow-Mag] 71.5 mg PO DAILY 03/18/20 Calcium (Elemental) [Os-Shayan 500] 500 mg PO DAILY 04/04/20 Citalopram [Celexa] 20 mg PO DAILY 04/04/20 Lactobacillus Acidophilus [Probiotic] 1 cap PO DAILY 04/04/20 Losartan Potassium 100 mg PO DAILY 04/04/20 Metoprolol Succinate 25 mg PO QHS 04/04/20 Atorvastatin Calcium 80 mg PO QHS #30 tab 04/05/20 Ticagrelor [Brilinta] 90 mg PO BID #60 tab 04/05/20 Following Prescriptions Were Given to Patient: Atorvastatin Calcium 80 mg PO QHS #30 tab Transmission Status: Received by [id number] Ticagrelor [Brilinta] 90 mg PO BID #60 tab Transmission Status: Received by [id number] Other Amb Orders: 30 Day Event Recorder [employer] [[facility]] Location: None Selected Primary Care Physician: Josie Snyder MD [Primary Care Provider] - Please follow up with your Primary Care Physician in: in 2 weeks Please Follow Up With: Maurilio Bliss MD When: in 1-2 weeks for bilateral carotid stenosis Please Follow Up With: Reji Walton MD When: For recurrent stroke Medical Necessity - Tobacco Use Smoking Status: Never smoker Meaningful Use Info Meaningful Use Diagnoses (Choose all that apply): Ischemic CVA - CVA Therapy Assessed for PT,OT and/or ST?: Yes - Ischemic Stroke Antithrombotic order at d/c?: Yes Dx of Atrial fib/flutter?: Yes Anticoagulant at discharge?: Yes Statins at discharge?: Yes Primary Dx Acute Ischemic CVA?: Yes IV tPA ordered during stay?: No Reason IV t-PA not ordered: Treatment not Indicated - NIH stroke scale 0 OBSV E&M: 76673 Observation care discharge
--- NOTE | 2020-04-05 14:33 | CASEMGMT ---
SHARLENE CM Note: patient to be discharged today. Call to [facility] [place], spoke to Geraldine to notify of patient discharge. CLinical information and dc instructions/summary faxed to [facility] [place]. Tres SU BSN ACM
--- NOTE | 2020-04-05 16:20 | NURSING ---
This RN called pt's Franchesca oclvin and reviewed discharge instructions with her. Franchesca denies any questions at this time.
--- NOTE | 2020-04-08 09:02 | CASEMGMT ---
SW did not do PHQ 9 as patient has Dementia and would not be able to participate. Joelle MENDOZA MSW
== END 2020-04-05 13:15 | disposition home or self-care (01) ==
LOC: ED 15:11 → PCU 15:29
PROVIDERS: Admitting Provider Student in an Organized Health Care Education/Training Program; Emergency Provider Emergency Medicine; PCP Student in an Organized Health Care Education/Training Program; Visit Provider Internal Medicine
DX: I63.9 Cerebral infarction, unspecified (principal); R47.01 Aphasia; R29.810 Facial weakness; I10 Essential (primary) hypertension; F03.90 Unspecified dementia, unspecified severity, without behavioral disturbance, psychotic disturbance, mood disturbance, and anxiety; F32.9 Major depressive disorder, single episode, unspecified; R53.1 Weakness; Z79.899 Other long term (current) drug therapy; Z79.82 Long term (current) use of aspirin; Z79.02 Long term (current) use of antithrombotics/antiplatelets; Z86.73 Personal history of transient ischemic attack (TIA), and cerebral infarction without residual deficits; D64.9 Anemia, unspecified; I65.23 Occlusion and stenosis of bilateral carotid arteries
CPT/HCPCS: 36415; 70450; 70496; 70498; 70551; 71045; 80048; 80061; 81001; 84484; 85025; 85610; 85730; 92610; 93005; 96360; 96361; 96372; 97162; 97166; 99218; 99285; Q9967; A4216; G0378

== ENCOUNTER 2020-04-09 15:02 | Emergency (ER) | payer MEDICARE, SELFPAY ==
[2020-04-05 08:49] VITALS: BMI 22.9
[2020-04-09 15:04] VITALS: BP 132/79; PULSE 71; RESP 16; TEMP 36.6; O2SAT 97; BMI 23.9
--- NOTE | 2020-04-09 15:13 | EKG12_ITS ---
Test Reason : WEAKNESS Blood Pressure : / mmHG Vent. Rate : 064 BPM Atrial Rate : 064 BPM P-R Int : 238 ms QRS Dur : 092 ms QT Int : 432 ms P-R-T Axes : 021 004 040 degrees QTc Int : 445 ms Sinus rhythm with 1st degree A-V block Moderate voltage criteria for LVH, may be normal variant Borderline ECG Confirmed by LEEROY PAPPAS, KENYATTA ([id number]), editor managing newspaper HEDY SOTELO ([id number]) on 04/12/2020 10:57:47 AM Referred By: SUZAN Confirmed By:KENYATTA UMAÑA MD
[2020-04-09 15:16] VITALS: O2SAT 98
--- NOTE | 2020-04-09 15:30 | RAD_ITS ---
Previous AP portable chest obtained on 04/04/2020 EXAM DESCRIPTION: PORTABLE AP CHEST CLINICAL HISTORY: 84 years Female, CHEST PAIN CHEST PAIN COMPARISON: None FINDINGS: The thorax is intact. A large hiatal hernia is identified. The heart and mediastinum appear to be within normal limits. The lungs appear to be well areated without evidence of pneumonic consolidation or pleural effusion. RAD/Chest 1 View (Portable) IMPRESSION: A large hiatal hernia is identified, otherwise the chest shows no acute pathology.. Electronically Signed: Ankit Flores, at 16:33 EST Tel , Service support ,
--- NOTE | 2020-04-09 15:35 | ED.DCSUM_ITS ---
History of Present Illness Chief Complaint: Weakness Informant: Patient Onset: Today Maximum Severity: Mild Narrative: Patient presents complaining of what she describes as a fuzzy sensation where she suddenly began to get very fuzzy mentally cloudy had some vertigo, she had no fever cough head neck chest or abdominal pain no numbness paresthesias no LOC the symptoms lasted for about 4 to 5 minutes they resolved spontaneously family was concerned called paramedics she was brought in. 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 she was admitted recently for the same work-up was unremarkable, and prior work-ups for the same have been negative Past Medical History - Allergies and Home Meds Allergies/Adverse Reactions: Allergies No Known Allergies Allergy (Verified 04/09/20 15:05) Primary Care Physician: Josie Snyder MD [Primary Care Provider] - Past Medical History: - - Clues as above vertigo Surgical History: noncontributory Smoking Status: Never smoker - Family History Maternal Family History: Reports: No pertinent history Paternal Family History: Reports: No pertinent history Review of Systems General: Denies: Chills, Fever, Sweats Eyes: Denies: Visual changes - bilaterally, Diplopia ENT: Denies: Rhinorrhea, Sore throat Cardiovascular: Denies: Chest pain, Palpitations Respiratory: Denies: Dyspnea, Cough, Dyspnea on exertion Gastrointestinal: Denies: Abdominal pain, Nausea, Vomiting, Diarrhea, Melena, Hematochezia Genitourinary: Denies: Dysuria, Hematuria, Frequency Musculoskeletal: Denies: Back pain, Extremity Pain Skin: Denies: Rash, Wounds Neurological: Reports: - - Vertigo spinning sensation. Denies: Headache, Weakness, Numbness Physical Exam Vital Signs/Narrative: Vital Signs Temp Pulse Resp BP Pulse Ox 04/09/20 15:16 98 04/09/20 15:04 97.9 F 71 16 132/79 H 97 General: Well nourished, Well developed, No Acute Distress Head: Normocephalic, Atraumatic Eyes: Perrl, EOMI ENT: Moist mucous membranes, No rhinorrhea Neck: Supple, Nontender Cardiovascular: Regular rate, Regular rhythm, No murmurs Respiratory: No distress, CTA bilaterally, Chest nontender Abdomen: Soft, Nontender, Nondistended, Normal bowel sounds Back: Nontender, Normal Inspection Extremities: Nontender, No edema Skin: Normal color, No rash Neurological: Alert, Oriented x3, Cranial nerves II-XII grossly intact, Normal Strength, Normal Sensation Psychological: Normal affect, Normal Mood Diagnostic/Tx/Re-eval - Medical Decision Making The patient EKG shows a sinus rhythm rate 64 no acute injury she is resting comfortably in the bed she has no acute complaints right now she indicates her symptoms totally resolved she is back to baseline she indicates this is exact same thing that has happened to her many times over the last few years and work- ups are always negative this time will obtain ED screen evaluation and observe her Now the patient is a rather poor historian the information from the computer reveals that she has had a history of prior stroke 11 2 she was then found to have some vascular disease she was sent to see Dr. Bliss of vascular for possible carotid endarterectomy she saw him on the per the note, she was also recommended to see cardiology for clearance The patient recalls some of that information she is currently on Plavix and aspirin based on the information we have obtained from her maximizing her outpatient management ED screening evaluation CT labs etc. are all generally unremarkable see those reports nothing acute again we discussed inpatient versus outpatient management she does not wish to be admitted she wants to go home we discussed inpatient versus outpatient management today with her providers at [phone] dr parsons, they are aware of the above they are aware that she is need these follow-up studies they would like to see her in the office in a day or 2 to further discuss her outpatient management and other treatment options we did discuss the patient the concept of the potential for a life altering or lethal stroke again she understands all that will take the medications will follow up with her providers as instructed Home stable declined admission Final impression transient vertigo resolved history of stroke TIA history of carotid artery disease ED Disposition - Plan for ED Patient: Diagnosis: CVA (cerebral vascular accident) Instructions: ED TRANSIENT ISCHEMIC ATTACK Referrals: Josie Snyder MD [Primary Care Provider] - Additional Instructions: Take your medications as instructed you must see your outpatient providers in a day or 2 for further management options return for change in symptoms
--- NOTE | 2020-04-09 15:40 | CT_ITS ---
STUDY: CT BRAIN WITHOUT CONTRAST REASON FOR EXAM: Female, 84 years old. GENERAL FEELING OF WEAKNESS, VERTIGO RADIATION DOSAGE (If Supplied By Facility): CTDIvol = ( 44.99 ) mGy, DLP = ( 728.62 ) mGycm TECHNIQUE: Transaxial CT imaging of the brain was performed without administration of intravenous contrast material. Individualized dose optimization techniques were used for this CT. COMPARISON: Head CT dated April 04, 2020 FINDINGS: Normal soft tissue structures. Normal calvarium. There is moderate cerebral atrophy with widening of the extra-axial spaces and ventricular dilatation. There are moderate areas of decreased attenuation within the white matter tracts of the supratentorial brain, consistent with microvascular disease changes. Moderate volume loss in the right temporal lobe reidentified and compatible with sequela from previous infarction Normal brainstem. Normal cerebellum. There is no intracranial hemorrhage. There are no findings of an acute ischemic infarction. Normal visualized paranasal sinuses. CT/Brain/Head without Contrast IMPRESSION: Chronic ischemic and involutional changes of the brain. Electronically Signed: Osmel Iqbal MD at 16:23 EST , Service support ,
[2020-04-09 15:54] LABS: Absolute Lymphocyte Count 1.39 X10^3/uL (0.83-4.51); Absolute Neutrophil Count 7.3 X10^3/uL (2.0-7.7); Basophil# 0.06 X10^3/uL; Basophil% 0.6 % (0-1); Eosinophil# 0.23 X10^3/uL; Eosinophils% 2.3 % (0-5); Hematocrit 31.1 % (37-47); Hemoglobin 9.7 g/dL (12.0-15.0); Lymphocyte # 1.39 X10^3/ul (4.0); Lymphocyte % 13.6 % (19-41); Mean Corp Hgb Conc 31.2 g/dL (32-36); Mean Corpuscular Hgb 30.3 pg (27.0-32.0); Mean Corpuscular Volume 97.2 fL (81-99); Mean Platelet Vol. 11.2 fl (6.2-12.0); Monocyte# 1.19 X10^3/uL; Monocyte% 11.6 % (0-10); NRBC Flagged by Analyzer 0 % (0-5); Neutrophil # 7.25 X10^3/uL (2.7-7.7); Neutrophil % 70.9 % (47-70); Platelet Count 313 K/mm3 (150-450); RBC Distribution Width CV 13.7 % (11.6-14.6); RBC Distribution Width SD 48.7 fl (35.1-43.9); White Blood Count 10.2 K/mm3 (4.4-11.0)
[2020-04-09 16:00] LABS: Anion Gap 3 (5-15); BUN 24 mg/dL (7-18); BUN/Creat Ratio 22.2 RATIO (10-20); Calcium,Total 9.7 mg/dL (8.5-10.1); Chloride 109 mmol/L (98-107); Creatinine, Serum 1.08 mg/dL (0.55-1.02); EST Glomerular Filtration Rate 51 mL/min (>60); Est Glom Filt Rate - Afr Amer 62 mL/min (>60); Estimated Creatinine Clearance 38.38 ml/min; Glucose 74 mg/dL (74-106); Sodium Level 143 mmol/L (136-145)
[2020-04-09 16:15] LABS: BNP,B-Type NATRIURETIC PEPTIDE 119.1 pg/mL (0-100)
[2020-04-09 16:45] VITALS: BP 121/56; PULSE 58; RESP 16; O2SAT 99
== END 2020-04-09 17:05 | disposition home or self-care (01) ==
LOC: ED 15:33
PROVIDERS: Emergency Provider Emergency Medicine; PCP Student in an Organized Health Care Education/Training Program
DX: R42 Dizziness and giddiness (principal); R41.89 Other symptoms and signs involving cognitive functions and awareness; I65.29 Occlusion and stenosis of unspecified carotid artery; Z79.02 Long term (current) use of antithrombotics/antiplatelets; Z79.82 Long term (current) use of aspirin; Z79.899 Other long term (current) drug therapy; Z86.73 Personal history of transient ischemic attack (TIA), and cerebral infarction without residual deficits
CPT/HCPCS: 70450; 71045; 80048; 83880; 84484; 85025; 93005; 99285; A4216

== ENCOUNTER 2020-05-21 13:37 | Inpatient (IN) | payer MEDICARE, SELFPAY ==
[2020-05-16 11:42] VITALS: BMI 23.3
[2020-05-21] VITALS (15 sets, daily range): BP systolic 100–149; BP diastolic 55–72; PULSE 58–85; RESP 14–88; TEMP 36.2–36.8; O2SAT 95–99; BMI 25.1; BMI 22.7
--- NOTE | 2020-05-21 13:40 | EKG12_ITS ---
Test Reason : STROKE Blood Pressure : / mmHG Vent. Rate : 059 BPM Atrial Rate : 059 BPM P-R Int : 184 ms QRS Dur : 090 ms QT Int : 424 ms P-R-T Axes : 031 018 075 degrees QTc Int : 419 ms Sinus bradycardia with sinus arrhythmia Confirmed by AGUSTIN PAPPAS, GERARDO ([id number]), content editor HEDY SOTELO ([id number]) on 05/22/2020 9:35:29 AM Referred By: GURINDER Confirmed By:GERARDO VELEZ MD
--- NOTE | 2020-05-21 13:40 | CT_ITS ---
STUDY: CT HEAD STROKE PROTOCOL W/O CONTRAST INJECTION REASON FOR EXAM: Female, 85 years old. CVA, asphasia, right facial droop RADIATION DOSAGE (If Supplied By Facility): CTDIvol = ( 44.99 ) mGy, DLP = ( 745.49 ) mGycm TECHNIQUE: Transaxial CT imaging of the brain was performed without administration of intravenous contrast material. Individualized dose optimization techniques were used for this CT. COMPARISON: Comparison is made with prior study of 04/09/2020. FINDINGS: Normal soft tissue structures. Normal calvarium. There is moderate cerebral atrophy with widening of the extra-axial spaces and ventricular dilatation. There are areas of decreased attenuation within the white matter tracts of the supratentorial brain, consistent with microvascular disease changes. There is evidence of encephalomalacia in the left temporal posterior parietal lobe. Normal basal ganglia and thalami. Normal brainstem. Normal cerebellum. There is no intracranial hemorrhage. There are no findings of an acute ischemic infarction. There is opacification of the left sphenoid sinus. Partial opacification of the ethmoid sinuses. Partial opacification of the left maxillary sinus. There is evidence of prior sinus surgery. CT/STROKE Brain/Head without Cont IMPRESSION: Chronic involutional changes of the brain. Encephalomalacia in the right temporal posterior parietal lobe. No acute abnormality is seen. Sinusitis. N.B. : The above information has been verbally conveyed by Joby Black to Daryl Stanley on 05/21/2020 13:57:28 (ET). Electronically Signed: Joby Black, at 13:59 EST , Service support ,
--- NOTE | 2020-05-21 13:40 | ED.DCSUM_ITS ---
History of Present Illness Chief Complaint: Neuro S/Sx Informant: Patient Narrative: 85-year-old female with history of CVA presenting with acute onset right-sided facial droop and confusion. Her daughter was with her when this happened. She states she was not responding at all. She was babbling when asked questions. Patient was otherwise well prior to this. - Past Medical History (1) CVA (cerebral vascular accident) Status: Chronic (2) Essential (primary) hypertension Status: Chronic (3) Hyperlipidemia Status: Chronic (4) Accelerated junctional rhythm Status: Inactive Past Medical History - Allergies and Home Meds Allergies/Adverse Reactions: Allergies No Known Allergies Allergy (Verified 05/16/20 11:42) Prior records reviewed: Yes Past Medical History: - - Reviewed in problem list Surgical History: noncontributory Lives: With Family Smoking Status: Never smoker Alcohol: None Drugs: None - Family History Maternal Family History: Family History (Last Reviewed 05/21/20 @ 16:[address] Papa Mccallum DO) Daughter Diabetes Heart disease Hypertension Family History: Reports: No pertinent history Paternal Family History: Family History (Last Reviewed 05/21/20 @ 16:[address] Papa Mccallum DO) Daughter Diabetes Heart disease Hypertension Family History: Reports: No pertinent history Review of Systems General: Denies: Chills, Fever, Sweats Eyes: Denies: Visual changes - bilaterally, Diplopia ENT: Denies: Rhinorrhea, Sore throat Cardiovascular: Denies: Chest pain, Palpitations Respiratory: Denies: Dyspnea, Cough, Dyspnea on exertion Gastrointestinal: Denies: Abdominal pain, Nausea, Vomiting, Diarrhea, Melena, Hematochezia Genitourinary: Denies: Dysuria, Hematuria, Frequency Musculoskeletal: Denies: Back pain, Extremity Pain Skin: Denies: Rash, Wounds Neurological: Reports: - - Sided facial droop and difficulty speaking prior to arrival Physical Exam General: Well nourished, No Acute Distress Head: Normocephalic, Atraumatic Eyes: Perrl, EOMI ENT: Moist mucous membranes, No rhinorrhea Cardiovascular: Regular rate, Regular rhythm Respiratory: No distress, CTA bilaterally Extremities: Nontender, No edema Skin: Normal color, No rash. Negative for: Cyanosis, Diaphoresis Neurological: Alert, Oriented x3, - - NIH is 4 Psychological: Normal affect, Normal Mood Diagnostic/Tx/Re-eval - Rhythm Strip Rhythm Strip: Sinus Rhythm Rate: 59 - EKG Initial EKG Interpretation: No Acute Injury Pattern, Sinus Bradycardia - Medical Decision Making Patient arrives with right-sided facial droop and reported difficulty speaking prior to arrival. On arrival her NIH is 4. Patient taken to CT and had CT of the brain as well as CTA which did not show acute stroke. The CTA does show 70% narrowing of the bilateral carotid arteries. EKG performed on arrival interpreted by myself shows a sinus rhythm without signs of ischemic change. Chest x-ray interpreted by myself and confirmed by radiology showed no acute process. Patient's lab work with a slight increase in her creatinine. Her electrolytes are normal. CBC is stable. Troponin is negative. The telestroke neurologist evaluated her after CT and her symptoms had resolved. Given this he did not think TPA was appropriate. He recommended bringing the patient in for MRI/MRA and having a EEG performed given that she has had recurrent bouts of th is and he was concerned for possible seizure. This was relayed to the hospitalist on admission. Patient is stable for admission to the medical floor. Impression: 1. TIA ED Disposition - Plan for ED Patient:
--- NOTE | 2020-05-21 13:41 | CT_ITS ---
STUDY: CTA HEAD AND NECK WITH CONTRAST REASON FOR EXAM: Female, 85 years old. CVA, right facial droop, aphasia. Hx dementia, CKD, CVA. RADIATION DOSAGE (If Supplied By Facility): CTDIvol = ( 24.43 ) mGy, DLP = ( 585.55 ) mGycm TECHNIQUE: CT angiography was performed with a multi-detector CT scanner. Data acquisition was obtained from the skull base through the vertex following intravenous administration of IV 75mL [id number]-370. MIP images were reconstructed from the axial data set. Post-processing of the angiographic images was performed, with multiplanar reformation and 3D reconstruction. Individualized dose optimization techniques were used for this CT. COMPARISON: Comparison is made with prior examination dated 04/04/2020. FINDINGS: Normal bilateral petrous carotid arteries. There is calcified plaque formation of the right cavernous carotid artery, without a cross-sectional luminal stenosis. There is calcified plaque formation of the left cavernous carotid artery, without a cross-sectional luminal stenosis. Normal right A1 segments of the anterior cerebral artery. Normal left A1 segments of the anterior cerebral artery. Normal intact anterior communicating artery (ACOM). Normal bilateral A2 segments of the anterior cerebral arteries. Normal right M1 and M2 segments of the middle cerebral arteries, with a normal M1 bifurcation. Normal left M1 and M2 segments of the middle cerebral arteries, with a normal M1 bifurcation. Normal right posterior communicating artery (PCOM). Normal left posterior communicating artery (PCOM). Normal bilateral vertebral arteries. Normal basilar artery with a normal basilar bifurcation. The visualized bilateral superior cerebellar (SCA) arteries are normal. Normal bilateral P1, P2 and visualized P3 segments of the posterior cerebral arteries. There is no demonstrated aneurysm of the [place] of [place]. AORTIC ARCH: There is atherosclerotic calcific plaque formation of the aortic arch and great vessels arising from the aortic arch, without a hemodynamically significant stenosis. Atherosclerotic calcific plaques at the origin of the left common carotid artery as well as the left subclavian and right brachiocephalic arteries. RIGHT CAROTID ARTERIES: Normal right common carotid artery (CCA). Normal right common carotid bulb. There is extensive atherosclerotic plaque formation of the origin of the right internal carotid artery with an estimated stenosis of greater than 70%. Normal visualized cervical portion of the right internal carotid artery. Normal origin of the right external carotid artery (ECA). LEFT CAROTID ARTERIES: Normal left common carotid artery (CCA). Normal left common carotid bulb. There is extensive atherosclerotic plaque formation of the origin of the left internal carotid artery with an estimated stenosis of greater than 70%. Normal visualized cervical portion of the left internal carotid artery. Normal origin of the left external carotid artery (ECA). VERTEBRAL ARTERIES: Normal bilateral vertebral arteries. CT/STROKE CTA Head AND Neck W/Con IMPRESSION: Atherosclerotic plaque formation at the origin of the right and left internal carotid arteries causing greater than 70% luminal narrowing. N.B. : The above information has been verbally conveyed by Joby Black to Daryl Stanley on 05/21/2020 14:15:59 (ET). Electronically Signed: Joby Black, at 14:17 EST , Service support ,
--- NOTE | 2020-05-21 13:41 | NURSING ---
[id number] STROKE ALERT CALLED
[2020-05-21 13:46] LABS: Bedside Glucose 142 mg/dL (70-110)
--- NOTE | 2020-05-21 14:05 | ED.RN ---
NEUROLOGIST BEAMING IN
[2020-05-21 14:07] LABS: Absolute Lymphocyte Count 0.93 X10^3/uL (0.83-4.51); Absolute Neutrophil Count 8.1 X10^3/uL (2.0-7.7); Basophil# 0.03 X10^3/uL; Basophil% 0.3 % (0-1); Eosinophil# 0.12 X10^3/uL; Eosinophils% 1.1 % (0-5); Hematocrit 25.3 % (37-47); Hemoglobin 7.9 g/dL (12.0-15.0); Lymphocyte # 0.93 X10^3/ul (4.0); Lymphocyte % 8.5 % (19-41); Mean Corp Hgb Conc 31.2 g/dL (32-36); Mean Corpuscular Hgb 30.3 pg (27.0-32.0); Mean Corpuscular Volume 96.9 fL (81-99); Mean Platelet Vol. 10.3 fl (6.2-12.0); Monocyte# 1.74 X10^3/uL; Monocyte% 15.9 % (0-10); NRBC Flagged by Analyzer 0 % (0-5); Neutrophil # 8.09 X10^3/uL (2.7-7.7); Neutrophil % 73.7 % (47-70); POSITIVE DIFFERENTIAL YES; Platelet Count 240 K/mm3 (150-450); RBC Distribution Width SD 53.6 fl (35.1-43.9); Red Blood Count 2.61 M/mm3 (4.2-5.4)
[2020-05-21 14:14] LABS: Differential Indicated SCAN CRITERIA MET
[2020-05-21 14:22] LABS: Anion Gap 7 (5-15); BUN 27 mg/dL (7-18); BUN/Creat Ratio 17.9 RATIO (10-20); Calcium,Total 9.1 mg/dL (8.5-10.1); Chloride 107 mmol/L (98-107); Creatinine, Serum 1.51 mg/dL (0.55-1.02); EST Glomerular Filtration Rate 35 mL/min (>60); Est Glom Filt Rate - Afr Amer 42 mL/min (>60); Estimated Creatinine Clearance 23.95 ml/min; Glucose 132 mg/dL (74-106); International Normalized Ratio 1.3; Potassium 4.3 mmol/L (3.5-5.1); Prothrombin Time (Protime)PT. 15.2 SECONDS (11.7-14.9); Sodium Level 138 mmol/L (136-145)
[2020-05-21 14:23] LABS: Partial Thromboplast Time 28.6 Seconds (24.1-36.2)
--- NOTE | 2020-05-21 14:55 | RAD_ITS ---
STUDY: X-RAY CHEST REASON FOR EXAM: Female, 85 years old. neuro deficit TECHNIQUE: Single AP portable view of the chest. COMPARISON: 04/09/2020 FINDINGS: The lungs are clear and expanded. There is no demonstrated pleural abnormality. There is moderate cardiac enlargement. Large hiatal hernia which is unchanged. Normal visualized pulmonary arteries. There is atherosclerotic tortuosity of the aortic arch and descending thoracic aorta. Normal visualized thoracic spine. Normal visualized ribs, clavicles, and shoulders. There is no demonstrated abnormality of the visualized soft tissue structures of the upper abdomen. RAD/Chest 1 View IMPRESSION: No active disease. Electronically Signed: Levy Mednez MD at 15:24 EST Tel , Service support ,
--- NOTE | 2020-05-21 15:14 | CHAPLAIN ---
Type of Pastoral Visit ___ Initial Visit ___ Follow-up Visit ___ On-call Visit ___ General Patient Visit ___ Spiritual Assessment ___ Family Conference ___ Bereavement _x__ Rapid Response ___ Code Blue ___ Other (describe below) Pastoral Care Referral From ___ Patient ___ Family ___ Nurse ___ Physician ___ Fire Inspector ___ Product Development Carpenter _x__ Other (describe below) Sacrament/Intervention ___ Active listening ___ Anointing ___ Yazdanism ___ Bereavement ___ Communion ___ Bertha exploration ___ ___ Life review ___ Prayer ___ Reconciliation ___ Sacrament of Sick _x__ Supportive presence ___ Wedding ___ Other (describe below) Pastoral Comments met with family member and offered support as patient was taken for testing; no concerns or requests at this time
--- NOTE | 2020-05-21 15:48 | NURSING ---
PCU OBS MELY BHAGAT
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
--- NOTE | 2020-05-21 17:39 | MRI_ITS ---
We are attempting to reach an attending provider to discuss findings. An addendum with communication details will be sent when the communication is complete. STUDY: MRI BRAIN WITHOUT CONTRAST REASON FOR EXAM: Female, 85 years old. cva, RIGHT weakness, right facial droop, confusion, previous stroke TECHNIQUE: Standardized multiplanar fat and water weighted pulse sequences were obtained. COMPARISON: 04/04/2020. FINDINGS: Mild to moderate atrophy and advanced periventricular white matter ischemic changes.. Old right temporoparietal infarct.. Chronic ischemic changes of the yuli. Acute ischemic changes within the deep white matter tracts in the frontal and parietal lobes Normal bilateral basal ganglia. Normal thalami. There is no extra-axial fluid accumulation. Normal flow voids within the major intracranial circulation suggesting patency by spin echo criteria. Normal sella turcica, pituitary gland, infundibular stalk, optic chiasm and hypothalamus. Normal tectal plate and pineal gland. Normal midbrain, and medulla. Normal cerebellum. Normal basal cisterns. Normal bilateral temporal bones. Normal bilateral internal auditory canals. Postsurgical changes of the orbits.. Mild mucosal thickening of the maxillary ethmoid sinuses and more severe mucosal thickening of the left sphenoid sinus.. Normal calvarium and skull base. Normal visualized soft tissue structures. Normal visualized upper cervical spine. MRI/Brain without Contrast IMPRESSION: Acute deep white matter ischemic changes in left frontal and parietal lobes. Advanced periventricular white matter ischemic changes and old right temporal parietal infarct. Chronic ischemic changes yuli. Electronically Signed: Aleksandr Barry MD at 19:52 EST , Service support ,
--- NOTE | 2020-05-21 19:00 | PCS.PANDOC ---
PANDEMIC DOCUMENTATION INITIATED: Date: 05/21/20 Time: 17:35
--- NOTE | 2020-05-21 20:16 | PCM.PN.BLA ---
Progress Note Called by radiology for critical MRI finding: Acute deep white matter ischemic changes in the left frontal and parietal lobe. Advanced periventricular white matter ischemic changes and old temporoparietal infarct. Chronic ischemic changes in the yuli. Patient already has CTA done on admission. [facility] initially consulted. Currently on aspirin and Brilinta Will defer to tele-neurology consult for follow-up to tomorrow-the primary physician will take up STROKE Vital Signs/Narrative: Vital Signs Temp Pulse Resp BP Pulse Ox 05/21/20 17:46 97.6 F L 68 18 100/61 99 05/21/20 17:00 75 18 147/72 H 98 05/21/20 16:30 61 15 117/56 L 97 05/21/20 16:26 97.8 F 62 14 125/55 H 97
[2020-05-21] MEDS: TICAGRELOR 90 MG TABLET PO (21:16)
[2020-05-21] MEDS: Cephalexin 250 MG Capsule PO (21:16)
[2020-05-21] MEDS: Tamsulosin HCl 0.4 MG Capsule PO (21:16)
[2020-05-21] MEDS: Metoprolol(XL)Succ 25 MG Tablet PO (21:16)
[2020-05-21] MEDS: Acetaminophen 325 MG Tablet 650 MG PO (21:17)
[2020-05-21] MEDS: Atorvastatin Calcium 80 MG Tablet PO (21:17)
[2020-05-22] VITALS (12 sets, daily range): BP systolic 107–131; BP diastolic 60–69; PULSE 67–89; RESP 16–18; TEMP 36.7–37.2; O2SAT 95–100
[2020-05-22] MEDS: Cephalexin 250 MG Capsule PO ×3 (05:27→22:51)
[2020-05-22 05:31] LABS: Absolute Lymphocyte Count 1.12 X10^3/uL (0.83-4.51); Absolute Neutrophil Count 8.3 X10^3/uL (2.0-7.7); Basophil# 0.04 X10^3/uL; Basophil% 0.4 % (0-1); Eosinophil# 0.13 X10^3/uL; Eosinophils% 1.2 % (0-5); Hematocrit 25.4 % (37-47); Hemoglobin 8.1 g/dL (12.0-15.0); Lymphocyte # 1.12 X10^3/ul (4.0); Mean Corp Hgb Conc 31.9 g/dL (32-36); Mean Corpuscular Hgb 30.7 pg (27.0-32.0); Mean Corpuscular Volume 96.2 fL (81-99); Mean Platelet Vol. 10.7 fl (6.2-12.0); Monocyte% 14.3 % (0-10); NRBC Flagged by Analyzer 0 % (0-5); Neutrophil # 8.28 X10^3/uL (2.7-7.7); Neutrophil % 73.7 % (47-70); POSITIVE DIFFERENTIAL YES; Platelet Count 248 K/mm3 (150-450); RBC Distribution Width SD 52.3 fl (35.1-43.9); Red Blood Count 2.64 M/mm3 (4.2-5.4); White Blood Count 11.2 K/mm3 (4.4-11.0)
[2020-05-22 05:50] LABS: Anion Gap 8 (5-15); BUN 24 mg/dL (7-18); Calcium,Total 9.2 mg/dL (8.5-10.1); Chloride 109 mmol/L (98-107); Cholesterol 99 mg/dL (200); Creatinine, Serum 1.41 mg/dL (0.55-1.02); EST Glomerular Filtration Rate 38 mL/min (>60); Est Glom Filt Rate - Afr Amer 46 mL/min (>60); Estimated Creatinine Clearance 28.88 ml/min; Glucose 102 mg/dL (74-106); High Density Lipoprotein 45 mg/dL; Potassium 4.1 mmol/L (3.5-5.1); Sodium Level 139 mmol/L (136-145); Triglycerides 77 mg/dL; Very Low Density Lipoprotein 15 mg/dL (5-40)
[2020-05-22 06:02] LABS: Differential Indicated SCAN CRITERIA MET
[2020-05-22 06:16] LABS: Differential Comment SCANNED
[2020-05-22] MEDS: Cyanocobalamin 500 MCG Tablet 2500 MCG PO (08:23)
[2020-05-22] MEDS: Aspirin 81 MG TAB.CHEW PO (08:23)
[2020-05-22] MEDS: Magnesium Chloride 64 MG Delay Rel.Tablet PO (08:24)
[2020-05-22] MEDS: amLODIPine 10 MG Tablet PO (08:24)
[2020-05-22] MEDS: Enoxaparin 30 MG/0.3 ML Syringe SC (08:24)
[2020-05-22] MEDS: Losartan Potassium 100 MG Tablet PO (08:24)
[2020-05-22] MEDS: buPROPion (XL) 150 MG TABLET.XL PO (08:24)
[2020-05-22] MEDS: Calcium (Elemental) 500 MG Tablet PO (08:25)
[2020-05-22] MEDS: Citalopram 20 MG Tablet PO (08:25)
[2020-05-22] MEDS: TICAGRELOR 90 MG TABLET PO ×2 (08:25→22:51)
--- NOTE | 2020-05-22 11:16 | CASEMGMT ---
SW attempted to complete a PHQ 9 with patient as she had a Stroke. She also has Dementia. SW could not understand what patient was saying it sounded like gibberish. Physician indicated patient was confused when she talked with her. Therefore SW did not complete PHQ 9. Joelle MENDOZA MSW
[2020-05-22 11:44] LABS: Pathologist Review Reviewed
[2020-05-22] MEDS: Ferrous Sulfate 325 MG Tablet PO (13:07)
--- NOTE | 2020-05-22 13:25 | CASEMGMT ---
Physician put in a referral for Hospice. DARLIN called patient's grandson Rajan and asked if he talked with the physician today. He said he did not, but Franchesca may have. DARLIN called Franchesca, patient's granddaughter in law. She spoke with the doctor earlier today regarding Hospice. The plan would be home on Hospice. DARLIN asked if they had a preference for a Hospice agency. She said she did not and to use whomever the hospital normally uses. DARLIN let her know SW will fax the referral and someone from Hospice will call her to set up an appt. She thanked DARLIN for letting her know. DARLIN called [facility] with referral and also faxed referral. Joelle MENDOZA MSW
--- NOTE | 2020-05-22 14:34 | PN_ITS ---
Subjective: Patient seen and examined. She was admitted with complaint of right-sided weakness and aphasia and is being managed for probable stroke. Patient is confused but alert. Unable to do review of systems due to her confusion. No active events overnight per her nurse. Has remained hemodynamically stable. Vitals/I&O's: Vital Signs Temp Pulse Resp BP Pulse Ox 98.9 F 79 18 107/60 95 05/22/20 08:08 05/22/20 08:08 05/22/20 08:08 05/22/20 08:08 05/22/20 08:27 Oxygen Delivery Method Room Air Weight: 145 lb 4.554 oz Body Mass Index (BMI) 22.7 Finger Stick Blood Glucose 142 Intake and Output for Last 24 Hours 05/20/20 05/21/20 05/22/20 23:59 23:59 23:59 Intake Total 620 / 620 420 / 420 Output Total 0 / 0 400 / 400 Balance 620 / 620 20 / 20 General: Alert, No apparent distress, Confused HEENT: Atraumatic, PERRLA, EOMI, Normocephalic Oral: Dry Mucosa Neck: Supple, No JVD, Negative Carotid Bruits Lungs: Clear to auscultation, Normal air movement, No rhonchi, No wheeze, No rales Cardiovascular: Regular rate, Regular Rhythm, Normal S1, Normal S2, No murmurs Abdomen: Bowel Sounds Present, Soft, Non Tender Extremities: No clubbing, No cyanosis, No edema, Capillary Refill Less than 3 Seconds Skin: No rashes, No breakdown Musculoskeletal: - - Contracture of right upper extremity Neurological: - - Left facial palsy. Psych/Mental Status: - - confused Laboratory Results 05/22/20 04:50: WBC 11.2 H, RBC 2.64 L, Hgb 8.1 L, Hct 25.4 L, MCV 96.2, MCH 30.7, MCHC 31.9 L, RDW Std Deviation 52.3 H, RDW Coeff of Andrew 15.0 H, Plt Count 248, MPV 10.7, Immature Gran % (Auto) 0.400, Neut % (Auto) 73.7 H, Lymph % (Auto) 10.0 L, [place] % (Auto) 14.3 H, Eos % (Auto) 1.2, Baso % (Auto) 0.4, Absolute Neuts (auto) 8.3 H, Absolute Lymphs (auto) 1.12, Nucleated RBC % 0, Differential Comment SCANNED, Diff Path Review Reviewed 05/22/20 04:50: Sodium 139, Potassium 4.1, Chloride 109 H, Carbon Dioxide 22.0, Anion Gap 8, BUN 24 H, Creatinine 1.41 H, Estim Creat Clear Calc 28.88, Est GFR (MDRD) Af Amer 46 L, Est GFR (MDRD) Non-Af 38 L, BUN/Creatinine Ratio 17.0, Glucose 102, Calcium 9.2, Triglycerides 77, Cholesterol 99, LDL Cholesterol 39, VLDL Cholesterol 15, HDL Cholesterol [address] 05/21/20 13:40 IMPRESSION: Chronic involutional changes of the brain. Encephalomalacia in the right temporal posterior parietal lobe. No acute abnormality is seen. Sinusitis. N.B. : The above information has been verbally conveyed by Joby Black to Daryl Stanley on 05/21/2020 13:57:28 (ET). Electronically Signed: Joby Black, at 13:59 EST , Service support , ADDENDUM: 05/21/20 1406 IMPRESSION: Chronic involutional changes of the brain. Encephalomalacia in the right temporal posterior parietal lobe. No acute abnormality is seen. Sinusitis. N.B. : The above information has been verbally conveyed by Joby Black to Daryl Stanley on 05/21/2020 13:57:28 (ET). Electronically Signed: Joby Black, at 13:59 EST , Service support , Head/Neck CTA 05/21/20 13:41 IMPRESSION: Atherosclerotic plaque formation at the origin of the right and left internal carotid arteries causing greater than 70% luminal narrowing. N.B. : The above information has been verbally conveyed by Joby Black to Daryl Stanley on 05/21/2020 14:15:59 (ET). Electronically Signed: Joby Black, at 14:17 EST , Service support , ADDENDUM: 05/21/20 1424 IMPRESSION: Atherosclerotic plaque formation at the origin of the right and left internal carotid arteries causing greater than 70% luminal narrowing. N.B. : The above information has been verbally conveyed by Joby Black to Daryl Stanley on 05/21/2020 14:15:59 (ET). Electronically Signed: Joby Wayne, at 14:17 EST , Service support , Chest X-Ray 05/21/20 14:55 IMPRESSION: No active disease. Electronically Signed: Levy Mendez MD at 15:24 EST Tel , Service support , Brain MRI 05/21/20 17:39 IMPRESSION: Acute deep white matter ischemic changes in left frontal and parietal lobes. Advanced periventricular white matter ischemic changes and old right temporal parietal infarct. Chronic ischemic changes yuli. Electronically Signed: Aleksandr Barry MD at 19:52 EST , Service support , ADDENDUM: 05/21/202013 IMPRESSION: Acute deep white matter ischemic changes in left frontal and parietal lobes. Advanced periventricular white matter ischemic changes and old right temporal parietal infarct. Chronic ischemic changes yuli. N.B. : The above information has been verbally conveyed by Aleksandr Barry MD to dr saul MD, on 05/21/2020 20:07:23 (ET). Electronically Signed: Aleksandr Barry MD at 19:52 EST , Service support , Current Medications Acetaminophen (Acetaminophen 325 Mg Tablet) 650 mg PO Q6H PRN PRN PRN Reason: Pain Score 1-10/Temp > 100.7 F Last Admin: 05/21/20 21:17 Dose: 650 mg Documented by: Hydrocodone Bitart/Acetaminophen (Hydrocodone Bitartrate/Apap 5/325 Tablet) 1 tablet PO Q8H PRN PRN Reason: Pain 1-10 Amlodipine Besylate (Amlodipine 10 Mg Tablet) 10 mg PO DAILY [facility] Last Admin: 05/22/20 08:24 Dose: 10 mg Documented by: Aspirin (Aspirin 81 Mg Tab.Chew) 81 mg PO DAILY@0800 [facility] Last Admin: 05/22/20 08:23 Dose: 81 mg Documented by: Atorvastatin Calcium (Atorvastatin Calcium 80 Mg Tablet) 80 mg PO QHS [facility] Last Admin: 05/21/20 21:17 Dose: 80 mg Documented by: Bupropion HCl (Bupropion (Xl) 150 Mg Tablet.Xl) 150 mg PO DAILY [facility] Last Admin: 05/22/20 08:24 Dose: 150 mg Documented by: Calcium Carbonate ([facility] (Elemental) 500 Mg [facility]t) [facility] Last Admin: 05/22/20 08:25 Dose: 500 mg Documented by: Cephalexin (Cephalexin 250 Mg Capsule) 250 mg PO Q8 [facility] Last Admin: 05/22/20 13:07 Dose: 250 mg Documented by: Cholecalciferol (Cholecalciferol (Vit D3) 1,000 Unit (25mcg)) [facility] Last Admin: 05/22/20 08:24 Dose: 2,000 unit Documented by: Citalopram Hydrobromide (Citalopram 20 Mg Tablet) 20 mg PO DAILY [facility] Last Admin: 05/22/20 08:25 Dose: 20 mg Documented by: Cyanocobalamin (Cyanocobalamin 500 Mcg Tablet) [facility] Last Admin: 05/22/20 08:23 Dose: 2,500 mcg Documented by: Docusate Sodium (Docusate Sodium 100 Mg Capsule) 100 mg PO QODAY [facility] Enoxaparin Sodium (Enoxaparin 30 Mg/0.3 Ml Syringe) 30 mg SC DAILY [facility] Last Admin: 05/22/20 08:24 Dose: 30 mg Documented by: Ferrous Sulfate (Ferrous Sulfate 325 Mg Tablet) 325 mg PO DAILY@1200 [facility] Last Admin: 05/22/20 13:07 Dose: 325 mg Documented by: Hydralazine HCl (Hydralazine 20 Mg/Ml Vial) 5 mg IV Q30M PRN PRN Reason: to maintain BP goals Labetalol HCl (Labetalol (Prefilled) 20 Mg/4 Ml) 10 - 20 mg IV Q10M PRN PRN PRN Reason: to Maintain BP Goals Lactobacillus Acidophilus (Lactobacillus Acidophilus) 1 tablet PO DAILY [facility] Last Admin: 05/22/20 08:25 Dose: 1 tablet Documented by: Losartan Potassium (Losartan Potassium 100 Mg Tablet) 100 mg PO DAILY [facility] Last Admin: 05/22/20 08:24 Dose: 100 mg Documented by: Magnesium Chloride (Magnesium Chloride 64 Mg Delay Rel.Tablet) 64 mg PO DAILY [facility] Last Admin: 05/22/20 08:24 Dose: 64 mg Documented by: Metoprolol Succinate (Metoprolol(Xl)Succ 25 Mg Tablet) 25 mg PO QHS [facility] Last Admin: 05/21/20 21:16 Dose: 25 mg Documented by: Sodium Chloride (0.9% Saline Lock 10 Ml Syringe) 10 - 40 ml IV UD PRN PRN Reason: SALINE FLUSH Tamsulosin HCl (Tamsulosin Hcl 0.4 Mg Capsule) 0.4 mg PO QHS [facility] Last Admin: 05/21/20 21:16 Dose: 0.4 mg Documented by: Ticagrelor (Ticagrelor 90 Mg Tablet) 90 mg PO BID [facility] Last Admin: 05/22/20 08:25 Dose: 90 mg Documented by: Medical Necessity - Tobacco Use Smoking Status: Never smoker Assessment/Plan All Active Problems (Last Reviewed 05/21/20 @ 16:[address] Papa Mccallum, ) Hyperglycemia (Resolved) #CVA * Right-sided weakness with associated confusion and aphasia. * CT of the brain showed chronic involutional changes with encephalomalacia in the right temporal posterior parietal lobe * CTA of the head and neck showed atherosclerotic plaque formation at the origin of the right and left internal carotid arteries causing greater than 70% luminal narrowing. * MRI of the brain showed acute deep white matter ischemic changes in left frontal and parietal lobes. * Neurology consulted recommended that patient have vascular surgery review for carotid endarterectomy. Of note, patient was in the hospital in March 2020 with similar complaints and was referred to vascular surgery. They did follow-up on outpatient basis but it does not appear she has had any surgery done. * I did call her granddaughter who is the next of kin who stated that patient had lucid moments where she has stated clearly that she did not want any surgery. After further discussion, granddaughter reiterated that her grandmother would not want any surgery done. Granddaughter counseled that this TIA versus stroke was likely to keep on recurring in light of the extensive plaque formation in both carotid arteries. Hospice and palliative care were offered to family. Granddaughter was agreeable to hospice. Hospice therefore consulted. * Continue aspirin and statin. Also continue Brilinta. * EEG showed mild to moderate diffuse encephalopathy with greater degree of cortical dysfunction in the right temporal region as evidenced by continuous slow generalized pattern with low amplitude in right hemisphere and rare right temporal sharply contoured discharge that does not meet criteria to be formally characterized as epileptiform. * #Bilateral carotid stenosis. CT findings as above. On statin. Patient and family do not want further work-up or surgery. #Hypertension: On amlodipine. Well-controlled. Will monitor. #DVT prophylaxis: Lovenox CODE STATUS: DNR CCA with intubation Disposition: Hospice consulted per family request. Patient likely to go home with home hospice. OBSV E&M: 29405 Subsequent observation care L2
--- NOTE | 2020-05-22 15:15 | CHAPLAIN ---
Type of Pastoral Visit _x__ Initial Visit ___ Follow-up Visit ___ On-call Visit ___ General Patient Visit ___ Spiritual Assessment ___ Family Conference ___ Bereavement ___ Rapid Response ___ Code Blue ___ Other (describe below) Pastoral Care Referral From _x__ Patient ___ Family ___ Nurse ___ Physician ___ Solder Deposit Operator ___ Capacity Management Specialist ___ Other (describe below) Sacrament/Intervention _x__ Active listening ___ Anointing ___ Protestant ___ Bereavement ___ Communion ___ Bertha exploration ___ ___ Life review _x__ Prayer ___ Reconciliation ___ Sacrament of Sick _x__ Supportive presence ___ Wedding ___ Other (describe below) Pastoral Comments patient was welcoming; sat with pt and explained how spiritual care is offered; pt responds to questions and comments; some words and phrases from pt are unintelligible but pt appears to understand questions and some answers are appropriate; pt states she is member of [employer] and would welcome prayer;
--- NOTE | 2020-05-22 16:02 | CASEMGMT ---
DARLIN called Tina at Hospice. She talked with patient's granddaughter in law. She is e-mailing consent forms to the granddaughter in law. DARLIN told her we will let her know when she is discharged tomorrow. Joelle MENDOZA MSW
[2020-05-22] MEDS: Atorvastatin Calcium 80 MG Tablet PO (22:51)
[2020-05-22] MEDS: Tamsulosin HCl 0.4 MG Capsule PO (22:51)
[2020-05-22] MEDS: Metoprolol(XL)Succ 25 MG Tablet PO (22:55)
[2020-05-23] VITALS (7 sets, daily range): BP systolic 121–135; BP diastolic 53–62; PULSE 60–72; RESP 16–20; TEMP 36.3–36.8; O2SAT 96–100; BMI 22.7
[2020-05-23] MEDS: Cephalexin 250 MG Capsule PO (05:02)
[2020-05-23] MEDS: Cyanocobalamin 500 MCG Tablet 2500 MCG PO (09:03)
[2020-05-23] MEDS: TICAGRELOR 90 MG TABLET PO (09:04)
[2020-05-23] MEDS: Docusate Sodium 100 MG Capsule PO (09:04)
[2020-05-23] MEDS: buPROPion (XL) 150 MG TABLET.XL PO (09:04)
[2020-05-23] MEDS: Metoprolol(XL)Succ 25 MG Tablet PO (09:04)
[2020-05-23] MEDS: Magnesium Chloride 64 MG Delay Rel.Tablet PO (09:04)
[2020-05-23] MEDS: Citalopram 20 MG Tablet PO (09:04)
[2020-05-23] MEDS: amLODIPine 10 MG Tablet PO (09:05)
[2020-05-23] MEDS: Calcium (Elemental) 500 MG Tablet PO (09:05)
[2020-05-23] MEDS: Aspirin 81 MG TAB.CHEW PO (09:05)
[2020-05-23] MEDS: Enoxaparin 30 MG/0.3 ML Syringe SC (09:05)
[2020-05-23] MEDS: Losartan Potassium 100 MG Tablet PO (09:05)
--- NOTE | 2020-05-23 09:35 | CASEMGMT ---
SW called patient's granddaughter in law and let her know patient needs more assistance than what she normally does. She said that is fine and someone is with patient 07/12. DARLIN asked her if she needs SW to arrange transportation. She said as long as patient can get in and out of a car she would transport her home. She is at work, but she can leave whenever with a little bit of a notice. DARLIN told her we will let her know. Joelle MENDOZA MSW
--- NOTE | 2020-05-23 11:31 | PCM.DC ---
- Discharge Diagnoses Current Active Problems: Current Active and Chronic Problems (Last Reviewed 05/21/20 @ 16:[address] Papa Mccallum, DO) Stenosis of left carotid artery (Chronic) Recurrent cerebrovascular accidents (CVAs) (Chronic 03/2020) Acute/subacute the punctate white matter infarcts in the periventricular white matter of the left parietal lobe. MRI 03/19/2020; Acute to subacute infarcts in the left periventricular white matter with some additional areas of stephen-infarct ischemia. MRI 04/04/2020 CVA (cerebral vascular accident) (Chronic 03/18/20) Essential (primary) hypertension (Chronic) Hyperlipidemia (Chronic) You will use the following diet at home:: Cardiac Your food should be the consistency of: Regular Your liquids should be the consistency of: Regular/Thin Discharge Activity: Return to Normal Activity Weight Bearing Status: Weight bearing as tolerated Instructions: ED Stroke, Completed, What Is a TIA? Allergies/Adverse Reactions: Allergies No Known Allergies Allergy (Verified 05/16/20 11:42) Medications to take at Discharge Amlodipine [Norvasc] 10 mg PO DAILY 03/18/20 Aspirin 81 mg PO DAILY 03/18/20 Bupropion HCl [Zyban] 150 mg PO DAILY 03/18/20 Cholecalciferol (Vitamin D3) [Vitamin D3] 50 mcg PO DAILY 03/18/20 Cyanocobalamin (Vitamin B-12) [Vitamin B12] 2,500 mcg PO DAILY 03/18/20 Ferrous Sulfate [Ferosul] 325 mg PO DAILY 03/18/20 Magnesium Chloride [Slow-Mag] 71.5 mg PO DAILY 03/18/20 Calcium (Elemental) [Os-Shayan 500] 500 mg PO DAILY 04/04/20 Citalopram [Celexa] 20 mg PO DAILY 04/04/20 Lactobacillus Acidophilus [Probiotic] 1 cap PO DAILY 04/04/20 Losartan Potassium 100 mg PO DAILY 04/04/20 Ticagrelor [Brilinta] 90 mg PO BID #60 tab 04/05/20 metoprolol succinate 25 mg tablet,extended release 24 hr 25 mg PO QHS tab 04/15/20 atorvastatin 80 mg tablet 80 mg PO QHS 05/16/20 docusate sodium 100 mg capsule 100 mg PO QODAY cap 05/16/20 Cephalexin [Keflex] 500 mg PO Q6H 05/21/20 Hydrocodone/Acetaminophen [[place] 5-325 Tablet] 1 ea PO Q8H PRN 05/21/20 Tamsulosin HCl [Flomax] 0.4 mg PO QHS 05/21/20 Primary Care Physician: Josie Snyder MD [Primary Care Provider] - Please follow up with your Primary Care Physician in: 2-3 weeks Test Results: Test results from this visit will be discussed in further detail at your follow-up appointment, if applicable. Proposed Discharge Date: 05/23/20
[2020-05-23] MEDS: Ferrous Sulfate 325 MG Tablet PO (11:33)
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
--- NOTE | 2020-05-23 11:50 | PHA.DC.MR ---
Pharmacy Service has performed discharge medication reconciliation for this patient. The patient's discharge medication list was reviewed for discrepancies and discrepancies were resolved. Home Medications Amlodipine [Norvasc] 10 mg PO DAILY 03/18/20 Aspirin 81 mg PO DAILY 03/18/20 Bupropion HCl [Zyban] 150 mg PO DAILY 03/18/20 Cholecalciferol (Vitamin D3) [Vitamin D3] 50 mcg PO DAILY 03/18/20 Cyanocobalamin (Vitamin B-12) [Vitamin B12] 2,500 mcg PO DAILY 03/18/20 Ferrous Sulfate [Ferosul] 325 mg PO DAILY 03/18/20 Magnesium Chloride [Slow-Mag] 71.5 mg PO DAILY 03/18/20 Calcium (Elemental) [Os-Shayan 500] 500 mg PO DAILY 04/04/20 Citalopram [Celexa] 20 mg PO DAILY 04/04/20 Lactobacillus Acidophilus [Probiotic] 1 cap PO DAILY 04/04/20 Losartan Potassium 100 mg PO DAILY 04/04/20 Ticagrelor [Brilinta] 90 mg PO BID #60 tab 04/05/20 metoprolol succinate 25 mg tablet,extended release 24 hr 25 mg PO QHS tab 04/15/20 atorvastatin 80 mg tablet 80 mg PO QHS 05/16/20 docusate sodium 100 mg capsule 100 mg PO QODAY cap 05/16/20 Cephalexin [Keflex] 500 mg PO Q6H 05/21/20 Hydrocodone/Acetaminophen [[place] 5-325 Tablet] 1 ea PO Q8H PRN 05/21/20 Tamsulosin HCl [Flomax] 0.4 mg PO QHS 05/21/20
--- NOTE | 2020-05-23 11:51 | CASEMGMT ---
Patient is ready for discharge home on Hospice. DARLIN called patient's granddaughter and let her know that patient is ready. 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 DARLIN notified RN, assistant corporate secretary, and Tina with Hospice. DARLIN also faxed d/c information to Hospice. Plan: Home with [facility]. Joelle VIZCAINO
== END 2020-05-23 13:34 | disposition hospice, home (50) | DRG 65 ==
LOC: ED 15:17 → PCU 16:33
PROVIDERS: Emergency Provider Student in an Organized Health Care Education/Training Program; PCP Student in an Organized Health Care Education/Training Program; Visit Provider Student in an Organized Health Care Education/Training Program
DX: I63.132 Cerebral infarction due to embolism of left carotid artery (principal); G81.91 Hemiplegia, unspecified affecting right dominant side; G93.40 Encephalopathy, unspecified; R47.01 Aphasia; R29.810 Facial weakness; R29.704 NIHSS score 4; E78.5 Hyperlipidemia, unspecified; I12.9 Hypertensive chronic kidney disease with stage 1 through stage 4 chronic kidney disease, or unspecified chronic kidney disease; N18.9 Chronic kidney disease, unspecified; Z66 Do not resuscitate; Z79.02 Long term (current) use of antithrombotics/antiplatelets; Z79.82 Long term (current) use of aspirin; Z79.899 Other long term (current) drug therapy; Z86.73 Personal history of transient ischemic attack (TIA), and cerebral infarction without residual deficits
CPT/HCPCS: 70450; 70496; 70498; 70551; 71045; 80048; 80061; 82962; 84484; 85025; 85610; 85730; 92526; 92610; 93005; 94762; 95819; 97162; 97166; 97802; 99284; J7030; Q9967; A4216